=== PATIENT | male | born 1945 | race Caucasian/White ===

== ENCOUNTER → 2020-06-16 08:05 | Outpatient (CLI) | payer MEDICARE, MEDICAID, SELFPAY ==
--- NOTE | 2020-06-16 08:12 | CDU_ITS ---
Reason For Study: bruit Rt. Velocities/BP Lt. Velocities/BP Prox CCA 76.0/12.1 cm/sec. Prox CCA 69.1/17.6 cm/sec. Mid CCA 74.7/12.1 cm/sec. Mid CCA 67.9/15.1 cm/sec. Dist CCA 95.6/20.0 cm/sec. Dist CCA 72.8/18.8 cm/sec. Prox ICA 86.4/17.0 cm/sec. Prox ICA 96.3/19.5 cm/sec. Mid ICA 144.8/26.1 cm/sec. Mid ICA 94.1/21.7 cm/sec. Dist ICA 126.6/17.0 cm/sec. Dist ICA 91.9/23.9 cm/sec. Rt. ICA/CCA = 1.9. Lt. ICA/CCA = 1.4. Prox ECA 414.5/22.2 cm/sec. Prox ECA 492.6/58.6 cm/sec. Rt. Vert. 86.4/7.9 cm/sec. Lt. Vert. 23.5/6.5 cm/sec. Right Extracranial There is homogeneous, smooth atherosclerotic plaque noted in the right common carotid artery. There is heterogeneous, irregular atherosclerotic plaque noted in the right internal carotid artery. The atherosclerotic plaque causes acoustic shadowing. There is heterogeneous, irregular atherosclerotic plaque noted in the right external carotid artery. Antegrade flow is noted in the right vertebral artery. Left Extracranial There is heterogeneous, smooth atherosclerotic plaque noted in the left common carotid artery. There is homogeneous, smooth atherosclerotic plaque noted in the left internal carotid artery. There is heterogeneous, irregular atherosclerotic plaque noted in the left external carotid artery. Abnormal waveform morphology noted in the left vertebral artery. Procedure Carotid Duplex 46925. Interpretation Summary Moderate (50-69%) stenosis right extracranial internal carotid. Mild (<50%) stenosis left extracranial internal carotid. Flow within the right verterbral artery is antegrade. Flow within the left verterbral artery is bidirectional, consistent with subclavian steal phenomenon. Ordering Physician: Vince Dunbar Performed By: Evens Mendoza RVT
--- NOTE | 2020-06-16 08:12 | ADU_ITS ---
Reason For Study: atherosclerosis with claudication Right Velocities Left Velocities Ext. Iliac Artery, dist = 165.9 cm./sec. Ext Iliac Artery, dist = 159.3 cm./sec. Common Femoral Artery, mid = 192.1 cm./sec. Common Femoral Artery, mid = 152.6 cm./sec. Supf Femoral Artery, prox = 187.4 cm./sec. Supf. Femoral Artery, prox = 121.6 cm./sec. Supf Femoral Artery, mid = 94.1 cm./sec. Supf. Femoral Artery, mid = 119.8 cm./sec. Supf Femoral Artery, dist. = 99.4 cm./sec. Supf. Femoral Artery, dist = 101.5 cm./sec. Profunda Femoral Artery = 475.1 cm./sec. Profunda Femoral Artery = 44.0 cm./sec. Popliteal Artery, prox. = 92.8 cm./sec. Popliteal Artery, proximal, = 125.3 cm./sec. Popliteal Artery, mid = 52.0 cm./sec. Popliteal Artery, mid = 77.8 cm./sec. Popliteal Artery, dist = 69.2 cm./sec. Popliteal Artery, distal = 96.0 cm./sec. Ant. Tibial Artery, prox = 81.7 cm./sec. Ant.Tibial Artery, prox = 92.8 cm./sec. Ant. Tibial Artery, mid = 89.1 cm./sec. Ant Tibial Artery, mid = 59.7 cm./sec. Ant. Tibial Artery, dist = 92.8 cm./sec. Ant. Tibial Artery, distal = 90.4 cm./sec. Post. Tibial Artery, prox = 91.6 cm./sec. Post. Tibial Artery, prox = 114.2 cm./sec. Post. Tibial Artery, mid = 94.0 cm./sec. Post Tibial Artery, mid = 94.0 cm./sec. Post. Tibial Artery, dist = 92.8 cm./sec. Post Tibial Artery, dist. = 83.0 cm./sec. Peroneal Artery, prox = 69.5 cm./sec. Peroneal Artery, prox = 54.8 cm./sec. Peroneal Artery, mid = 59.6 cm./sec. Peroneal Artery, mid = 45.0 cm./sec. Peroneal Artery,dist = 43.7 cm./sec. Peroneal Artery,dist. = 42.5 cm./sec. Procedure The exam was diagnostic. Exam performed in department. Interpretation Summary Right profunda with severe stenosis otherwise widely patent throughout bilateral lower extremities. Ordering Physician: Vince Dunbar Performed By: Evens Mendoza RVT
--- NOTE | 2020-06-16 08:12 | AAVD_ITS ---
Reason For Study: aortic atherosclerosis Aorta Measurements Aorta Doppler Measurements Proximal aorta measures1.02 x 1.06cm. in cross- Peak systolic flow velocities within the proximal sectional axis. aorta measure 58.5 cm/sec. Proximal aorta measures1.02cm. in longitudinal Peak systolic flow velocities within the mid aorta axis. measure 62.1 cm/sec. Mid aorta measures.95 x 1.02cm. in cross-sectionalPeak systolic flow velocities within the distal axis. aorta measure 52.3 cm/sec. Mid aorta measures1.01cm. in longitudinal axis. Distal aorta measures.95 x .83cm. in cross- sectional axis. Distal aorta measures.92cm. in longitudinal axis. Left Iliac Artery Left iliac artery measures .38 x .46 cm. in the cross-sectional axis. Left iliac artery measures .43 cm. in the longitudinal axis. Peak systolic velocity in the left iliac artery measures 140.7 cm/sec. Right Iliac Artery Right iliac artery measures .5 x .58 cm. in the cross-sectional axis. Right iliac artery measures .5 cm. in the longitudinal axis. Peak systolic velocity in the right iliac artery measures 202.4 cm/sec. Procedure The exam was diagnostic. Exam performed in department. Interpretation Summary No aortoiliac aneurysm.. Right iliac with psv 202 for mild to moderate stenosis, otherwise o significant stenosis. Ordering Physician: Vince Dunbar Performed By: Evens Mendoza RVT
--- NOTE | 2020-06-16 08:12 | ART_ITS ---
Reason For Study: atherosclerosis with claudication Procedure A bilateral lower extremity continuous wave Doppler with analog waveform analysis and ankle brachial indexes. R arm manual BP was 192/80 prior to releasing pt. Pt is to go home and make sure he took his BP meds this AM. Left Segmental Pressures Left brachial= 189mmHg. Left posterior tibial artery = 182mmHg. Left dorsalis pedis artery = 182mmHg. The left dorsalis pedis waveforms are biphasic. The left posterior tibial artery waveforms are biphasic. Right Segmental Pressures Right brachial= 208mmHg. Right posterior tibial artery = 192mmHg. Right dorsalis pedis artery = 199mmHg. The right dorsalis pedis waveforms are biphasic. The right posterior tibial artery waveforms are biphasic. Indices The right ankle brachial index by the posterior tibial artery is .92. The right ankle brachial index by the dorsalis pedis is .96. The left ankle brachial index by the dorsalis pedis is .88. The left ankle brachial index by the posterior tibial artery is .88. Interpretation Summary Bilateral triphasic flow and RONNIE 0.96 and 0.88. Ordering Physician: Vince Dunbar Performed By: Vikas Mendoza RVT and Student
== END ==
PROVIDERS: Referring Provider Surgery Vascular Surgery; Visit Provider Surgery Vascular Surgery
DX: I70.0 Atherosclerosis of aorta (principal); I77.1 Stricture of artery; I70.213 Atherosclerosis of native arteries of extremities with intermittent claudication, bilateral legs; R09.89 Other specified symptoms and signs involving the circulatory and respiratory systems; I11.9 Hypertensive heart disease without heart failure; E78.00 Pure hypercholesterolemia, unspecified; Z72.0 Tobacco use
CPT/HCPCS: 93880; 93922; 93925; 93978

== ENCOUNTER → 2020-12-26 08:16 | Outpatient (CLI) | payer MEDICARE, MEDICAID, SELFPAY ==
[2020-11-08 14:50] VITALS: BMI 25.8
[2020-12-26 12:08] LABS: Absolute Lymphocyte Count 2.74 X10^3/uL (0.83-4.51); Absolute Neutrophil Count 3.8 X10^3/uL (2.0-7.7); Basophil# 0.04 X10^3/uL; Basophil% 0.5 % (0-1); Eosinophil# 0.09 X10^3/uL; Eosinophils% 1.2 % (0-5); Hematocrit 51.4 % (40-54); Hemoglobin 16.1 g/dL (13.0-16.5); Lymphocyte # 2.74 X10^3/ul (4.0); Lymphocyte % 37.1 % (19-41); Mean Corp Hgb Conc 31.3 g/dL (32-36); Mean Corpuscular Hgb 30.8 pg (27.0-32.0); Mean Corpuscular Volume 98.3 fL (80-94); Mean Platelet Vol. 11.2 fl (6.2-12.0); Monocyte# 0.65 X10^3/uL; Monocyte% 8.8 % (0-10); NRBC Flagged by Analyzer 0 % (0-5); Neutrophil # 3.84 X10^3/uL (2.7-7.7); Platelet Count 184 K/mm3 (150-450); RBC Distribution Width CV 13.5 % (11.6-14.6); Red Blood Count 5.23 M/mm3 (4.6-6.2); White Blood Count 7.4 K/mm3 (4.4-11.0)
[2020-12-26 12:32] LABS: Vitamin D,25 Hydroxy 14.2 ng/mL
[2020-12-26 12:44] LABS: Hemoglobin A1c 5.9 % (3.8-5.6)
[2020-12-26 12:56] LABS: AST(SGOT) 30 U/L (15-37); Alanine Aminotransfer ALT/SGPT 42 U/L (16-61); Albumin, Serum 3.7 g/dL (3.2-5.0); Alkaline Phosphatase 99 U/L (45-117); Anion Gap 6 (5-15); BUN 13 mg/dL (7-18); BUN/Creat Ratio 13.7 RATIO (10-20); Calcium,Total 9.4 mg/dL (8.5-10.1); Chloride 104 mmol/L (98-107); Cholesterol 141 mg/dL (200); Creatinine, Serum 0.95 mg/dL (0.70-1.30); EST Glomerular Filtration Rate 83 mL/min (>60); Est Glom Filt Rate - Afr Amer 100 mL/min (>60); Globulin 3.8 g/dL (2.2-4.2); Glucose 104 mg/dL (74-106); High Density Lipoprotein 37 mg/dL; PSA,Total - Annual Screen 1.52 ng/mL (0.00-4.00); Potassium 4.2 mmol/L (3.5-5.1); Protein, Total 7.5 g/dL (6.4-8.2); Sodium Level 139 mmol/L (136-145); Thyroid Stim Hormone (TSH) 3.15 uIU/mL (0.358-3.74); Triglycerides 151 mg/dL; Very Low Density Lipoprotein 30 mg/dL (5-40)
== END ==
LOC: BIMLAB 08:22
PROVIDERS: PCP Internal Medicine; Referring Provider Internal Medicine; Visit Provider Internal Medicine
DX: E55.9 Vitamin D deficiency, unspecified (principal); E78.5 Hyperlipidemia, unspecified; I10 Essential (primary) hypertension; I25.10 Atherosclerotic heart disease of native coronary artery without angina pectoris; F17.210 Nicotine dependence, cigarettes, uncomplicated; I73.9 Peripheral vascular disease, unspecified; Z95.5 Presence of coronary angioplasty implant and graft; Z12.5 Encounter for screening for malignant neoplasm of prostate; Z79.899 Other long term (current) drug therapy
CPT/HCPCS: 36415; 80053; 80061; 82306; 83036; 84153; 84443; 85025; G0103

== ENCOUNTER → 2021-08-14 08:05 | Outpatient (CLI) | payer MEDICARE, MEDICAID, SELFPAY ==
--- NOTE | 2021-08-14 08:08 | ART_ITS ---
Reason For Study: Atherosclerosis Procedure A bilateral lower extremity continuous wave Doppler with analog waveform analysis and ankle brachial indexes. Left Segmental Pressures Left brachial= 179mmHg. Left posterior tibial artery = 183mmHg. Left dorsalis pedis artery = 165mmHg. Left digit = 113 mmHg. The left dorsalis pedis waveforms are biphasic. The left posterior tibial artery waveforms are biphasic. Right Segmental Pressures Right brachial= 205mmHg. Right posterior tibial artery = 168mmHg. Right dorsalis pedis artery = 148mmHg. Right digit = 109 mmHg. The right dorsalis pedis waveforms are biphasic. The right posterior tibial artery waveforms are biphasic. Indices The right ankle brachial index by the dorsalis pedis is 0.72. The right ankle brachial index by the posterior tibial artery is 0.82. The right digital-brachial index is 0.53. The left ankle brachial index by the dorsalis pedis is 0.80. The left ankle brachial index by the posterior tibial artery is 0.89. The left digital-brachial index is 0.55. VL/Ankle Brachial Index Interpretation Summary Bilateral mild occlussive disease with triphasic flow and RONNIE 0.82 and 0.89. Ordering Physician: Vince Dunbar Referring Physician: Sherrie Song Performed By: Tiffani Hodge RVT
--- NOTE | 2021-08-14 08:08 | CDU_ITS ---
Reason For Study: Carotid stenosis Rt. Velocities/BP Lt. Velocities/BP Prox CCA 49.9/9.5 cm/sec. Prox CCA 75.4/17 cm/sec. Mid CCA 60.4/13.4 cm/sec. Mid CCA 73.6/17 cm/sec. Dist CCA 60.4/13.4 cm/sec. Dist CCA 71.8/13.3 cm/sec. Prox ICA 91.9/15.2 cm/sec. Prox ICA 109.6/16.3 cm/sec. Mid ICA 156.5/27 cm/sec. Mid ICA 86.3/13.7 cm/sec. Dist ICA 113.8/13.3 cm/sec. Dist ICA 79.1/15.2 cm/sec. Rt. ICA/CCA = 2.59. Lt. ICA/CCA = 1.49. Prox ECA 434.7/20.5 cm/sec. Prox ECA 427.3/9.2 cm/sec. Rt. Vert. 104.7/13.3 cm/sec. Lt. Vert. 30.5/8.8 cm/sec. Right Extracranial There is homogeneous, smooth atherosclerotic plaque noted in the right common carotid artery. There is heterogeneous, irregular atherosclerotic plaque noted in the right internal carotid artery. The atherosclerotic plaque causes acoustic shadowing. Stent noted in the CCA distal-ICA distal. There is heterogeneous, irregular atherosclerotic plaque noted in the right external carotid artery. Antegrade flow is noted in the right vertebral artery. Left Extracranial There is heterogeneous, irregular atherosclerotic plaque noted in the left common carotid artery. There is homogeneous, smooth atherosclerotic plaque noted in the left internal carotid artery. Stent noted in the CCA distal-ICA mid. There is heterogeneous, irregular atherosclerotic plaque noted in the left external carotid artery. Abnormal waveform morphology noted in the left vertebral artery. VL/Carotid Duplex Ultrasound Interpretation Summary Moderate (50-69%) stenosis right extracranial internal carotid. Mild (<50%) yara nosis left extracranial internal carotid. Flow within the left verterbral artery is bidire ctional, consistent with subclavian steal phenomenon. Ordering Physician: Vince Dunbar Referring Physician: Sherrie Song Performed By: Tiffani Hodge RVT
== END ==
PROVIDERS: PCP Internal Medicine; Referring Provider Surgery Vascular Surgery; Visit Provider Surgery Vascular Surgery
DX: I65.21 Occlusion and stenosis of right carotid artery (principal); I70.213 Atherosclerosis of native arteries of extremities with intermittent claudication, bilateral legs; Z48.812 Encounter for surgical aftercare following surgery on the circulatory system; Z72.0 Tobacco use
CPT/HCPCS: 93880; 93922; 93978

== ENCOUNTER 2021-09-30 08:46 | Inpatient (IN) | payer MEDICARE, MEDICAID, SELFPAY ==
[2021-09-30] VITALS (10 sets, daily range): BP systolic 112–152; BP diastolic 54–74; PULSE 70–90; RESP 16–20; TEMP 36.3–37.6; O2SAT 94–98; BMI 24.0; BMI 22.2
[2021-09-30 09:22] LABS: Absolute Lymphocyte Count 1.54 X10^3/uL (0.83-4.51); Absolute Neutrophil Count 17.8 X10^3/uL (2.0-7.7); Basophil# 0.06 X10^3/uL; Basophil% 0.3 % (0-1); Eosinophil# 1.11 X10^3/uL; Eosinophils% 4.8 % (0-5); Hematocrit 45.4 % (40-54); Hemoglobin 14.9 g/dL (13.0-16.5); Lymphocyte # 1.54 X10^3/ul (0.83-4.51); Lymphocyte % 6.7 % (19-41); Mean Corp Hgb Conc 32.8 g/dL (32-36); Mean Corpuscular Hgb 30.7 pg (27.0-32.0); Mean Corpuscular Volume 93.4 fL (80-94); Mean Platelet Vol. 10.8 fl (6.2-12.0); Monocyte# 2.45 X10^3/uL; Monocyte% 10.6 % (0-10); NRBC Flagged by Analyzer 0 % (0-5); Neutrophil # 17.75 X10^3/uL (2.7-7.7); Neutrophil % 76.6 % (47-70); POSITIVE DIFFERENTIAL YES; POSITIVE MORPHOLOGY YES; Platelet Count 273 K/mm3 (150-450); RBC Distribution Width CV 13.5 % (11.6-14.6); Red Blood Count 4.86 M/mm3 (4.6-6.2); White Blood Count 23.1 K/mm3 (4.4-11.0)
[2021-09-30 09:25] LABS: Differential Indicated SCAN CRITERIA MET
[2021-09-30 09:32] LABS: Anion Gap 13 (5-15); BUN 46 mg/dL (7-18); BUN/Creat Ratio 33.8 RATIO (10-20); Calcium,Total 9.3 mg/dL (8.5-10.1); Chloride 97 mmol/L (98-107); Creatinine, Serum 1.36 mg/dL (0.70-1.30); EST Glomerular Filtration Rate 54 mL/min (>60); Est Glom Filt Rate - Afr Amer 66 mL/min (>60); Glucose 147 mg/dL (74-106); Potassium 3.7 mmol/L (3.5-5.1); Sodium Level 133 mmol/L (136-145)
--- NOTE | 2021-09-30 09:46 | CT_ITS ---
STUDY: CT ABDOMEN AND PELVIS WITH CONTRAST REASON FOR EXAM: Male, 75 years old. Left lower quadrant pain RADIATION DOSAGE (If Supplied By Facility): CTDIvol = ( 10.36 ) mGy, DLP = ( 555.41 ) mGycm TECHNIQUE: CT images were obtained from the dome of the diaphragm to the symphysis pubis without oral contrast. IV 100mL Isovue-370 was administered. Sagittal and coronal images were reconstructed. Individualized dose optimization techniques were used for this CT. COMPARISON: None. FINDINGS: The visualized lung bases are unremarkable. There is coronary artery disease. There is basal atelectasis. Gallbladder is enlarged with surrounding inflammation. There is no biliary dilation. Liver, spleen and pancreas are normal. Normal bilateral adrenal glands. Normal right kidney. Normal left kidney. There is no intestinal obstruction. There is colonic diverticulosis without radiculitis. There is advanced aortic atherosclerosis with calcified and lipid rich plaque. There are bilateral stents in the iliacs with low diameter, possible stenosis. Normal urinary bladder. There is a right inguinal fat hernia. Normal osseous structures. CT/Abdomen/Pelvis W IV Cont ONLY IMPRESSION: Questionable cholecystitis. Refer to ultrasonography. Unremarkable left lower quadrant. Advanced atherosclerosis. Electronically Signed: Joe Rose MD at 12:23 EST Tel , Service support ,
--- NOTE | 2021-09-30 09:46 | ED.VIS.GI ---
HPI HPI - GI History of Present Illness Chief Complaint: Abd Pain Narrative Narrative: 75-year-old male presenting with diarrhea for the last 10 days. Patient states that he has not had a fever or chills. He is not having nausea or vomiting. He does note decreased p.o. intake because he is generally not hungry. He complains of abdominal pain across the bilateral lower quadrants of his abdomen. He denies drinking from any [place] or streams. He denies exotic travel. He denies eating undercooked meats. No history of C. difficile colitis. Had he has not been on recent antibiotics. He has no history of diverticulitis. He denies black or bloody stools. Patient states that he called his primary care physician who called in loperamide. He has not picked this up yet. [facility] Medical History History of myocardial infarction Hyperlipemia Hypertension Home Medications aspirin 81 mg tablet,delayed release 81 mg PO DAILY 11/08/20 [History Last Taken Unknown] ezetimibe 10 mg tablet 10 mg PO DAILY 11/08/20 [History Last Taken Unknown] prasugrel 10 mg tablet 10 mg PO DAILY 11/08/20 [History Last Taken Unknown] atorvastatin 80 mg tablet 80 mg PO QHS #90 tab 07/10/21 [Rx Last Taken Unknown] lisinopril 10 mg tablet 10 mg PO BID #180 tab 07/25/21 [Rx Last Taken Unknown] metoprolol tartrate 50 mg tablet 25 mg PO BID #90 tab 08/07/21 [Rx Last Taken Unknown] loperamide 2 mg tablet See Rx Instructions PO .COMPLEX PRN #30 tab MDD 16mg 09/26/21 [Rx Last Taken Unknown] ondansetron 4 mg disintegrating tablet 4 mg PO Q8H PRN #30 tab 09/29/21 [Rx Last Taken Unknown] Allergy/AdvReac Type Severity Reaction Status Date / Time clopidogrel [From Plavix] Allergy Intermediate Hives Verified 09/30/21 08:49 Family History Father Colon cancer Mother Hypertension Diabetes Surgical History History of heart artery stent Social History Smoking Status: Current every day smoker tobacco type: cigarettes Tobacco: How many years used: 45 alcohol intake: current alcohol intake frequency: a few times a week Alcohol type: beer substance use type: does not use what type of physical activity do you participate in: walking frequency: 3-4 times per week ROS ROS ED Constitutional Constitutional ED: Denies chills or fever(s) ENT ENT ED: Denies rhinorrhea or sore throat Cardiovascular Cardiovascular: Denies chest pain or palpitations Respiratory/Chest Respiratory/Chest: Denies cough or dyspnea Gastrointestinal Gastrointestinal: Reports abdominal pain and diarrhea; Denies constipation Genitourinary Genitourinary ED: Denies dysuria or hematuria Musculoskeletal Musculoskeletal: Denies arthralgias or myalgias Integumentary Denies Abrasions or rash Neurologic Neurologic: Denies headache(s) or paresthesias EXAM Physical Exam Const Vital Signs: 09/30/21 08:46 09/30/21 09:16 09/30/21 11:06 Temperature 98 F 98.0 F Temperature Source Temporal Temporal Pulse Rate 90 83 89 Respiratory Rate 20 H 16 16 Blood Pressure 151/54 H 122/61 H Blood Pressure Mean 86 81 Pulse Ox 97 95 96 Oxygen Delivery Method Room Air Room Air Room Air 09/30/21 13:28 09/30/21 15:05 Temperature 97.6 F L Temperature Source Temporal Pulse Rate 86 Respiratory Rate 16 16 Blood Pressure Blood Pressure Mean Pulse Ox 98 96 Oxygen Delivery Method Room Air Room Air Positive well nourished General Appearance ED: NAD; Negative for pallor HEENT Reports dry mucous membranes normocephalic and atraumatic Mouth ED: Yes dry mucous membranes Mouth: dry mucous membranes Eyes PERRL and EOMs intact bilaterally General Eye ED: Negative for pale conjunctiva or scleral icterus Resp normal respiratory effort and clear to auscultation bilaterally Cardio regular rate and regular rhythm GI Palpation: soft and tender LLQ and RLQ Back/Spine no CVA tenderness Neuro CN's II-XII intact bilaterally Sensorium / Orientation: alert, oriented to person, oriented to place and oriented to time Psych mental status grossly normal and thought process normal Skin General Skin Exam: Negative for jaundice or pallor MDM MDM MDM Narrative Medical decision making narrative: 75-year-old male presenting with left lower quadrant and right lower quadrant abdominal pain this is worse on the left lower quadrant. He denies fever, chills, nausea, vomiting. Patient states he has not had any black or bloody stool. He denies any recent antibiotics use. He denies eating undercooked foods. He has had no exotic foods. I did obtain blood work and the patient received morphine and Zofran with good relief of his pain. His CBC showed he has a leukocytosis of 23,000 with a slight left shift. Hemoglobin hematocrit are stable however his hemoglobin is slightly lower at 14.9 and it was previously in December at 16.1. Creatinine is slightly elevated at 1.36. UA negative for infection. CT of the abdomen pelvis is performed and does not show any bowel inflammation in the left lower or right lower quadrants. It does identify a very large gallbladder with some surrounding inflammation. Patient has minimal pain in this area. I did obtain an ultrasound of the right upper quadrant which shows gallbladder hydrops. I initially discussed this with Dr. Enrique who recommended that I obtain a CT of the abdomen pelvis with oral contrast and then I consult Dr. Iraheta. After speaking with Dr. Iraheta he did state that this could possibly be an ischemic colitis and recommended that I get inflammatory markers such as CRP, ESR, ferritin. . Given his high white blood cell count he recommended admitting the patient for observation and given the patient IV Zosyn to cover for ischemic colitis. ESR is 61.CRP is 366. Ferritin is pending. I was able to obtain a small stool sample and I hope this was a enough for testing. I did stand for ova and parasites, stool culture, enteric pathogens, C. difficile. After my conversation with DrSully Enrique, evaluate the patient did state that this could possibly be a source of the infection given the large size of this gallbladder hydrops. He recommended admission for cardiac clearance before he could consider doing a cholecystectomy. Since the patient is to be admitted either way and he needs Zosyn whether he has a gallbladder source or bowel source this was given and the patient will be admitted to the hospitalist for medical clearance for cholecystectomy Dr. Enrique. CT scan of the abdomen pelvis with oral contrast is pending however this do not change his disposition. Patient is admitted in stable condition. Impression: 1. Diarrhea 2. Leukocytosis 3. Gallbladder hydrops 4. Abdominal pain Lab Data Attestation: I reviewed the patient's lab results. Labs: Laboratory Results - last 24 hr 09/30/21 09/30/21 09/30/21 09:05 09:05 09:05 WBC 23.1 H RBC 4.86 Hgb 14.9 Hct 45.4 MCV 93.4 MCH 30.7 MCHC 32.8 RDW Std Deviation 46.0 H RDW Coeff of Arnoldo 13.5 Plt Count 273 MPV 10.8 Immature Gran % (Auto) 1.000 H Neut % (Auto) 76.6 H Lymph % (Auto) 6.7 L [place] % (Auto) 10.6 H Eos % (Auto) 4.8 Baso % (Auto) 0.3 Absolute Neuts (auto) 17.8 H Absolute Lymphs (auto) 1.54 Nucleated RBC % 0 Differential Comment SCANNED Diff Path Review May foll ESR Sodium 133 L Potassium 3.7 Chloride 97 L Carbon Dioxide 23.0 Anion Gap 13 BUN 46 H Creatinine 1.36 H Estim Creat Clear Calc 46.10 Est GFR (MDRD) Af Amer 66 Est GFR (MDRD) Non-Af 54 L BUN/Creatinine Ratio 33.8 H Glucose 147 H Lactic Acid Calcium 9.3 Total Bilirubin 1.10 H Direct Bilirubin 0.47 H AST 38 H ALT 42 Alkaline Phosphatase 114 C-React Prot Ext Range Total Protein 7.7 Albumin 2.6 L Globulin 5.1 H Lipase Urine Color Urine Clarity Urine pH Ur Specific [place] Urine Protein Urine Glucose (UA) Urine Ketones Urine Occult Blood Urine Nitrite Urine Bilirubin Urine Urobilinogen Ur Leukocyte Esterase 09/30/21 09/30/21 09/30/21 09:05 09:19 11:46 WBC RBC Hgb Hct MCV MCH MCHC RDW Std Deviation RDW Coeff of Arnoldo Plt Count MPV Immature Gran % (Auto) Neut % (Auto) Lymph % (Auto) [place] % (Auto) Eos % (Auto) Baso % (Auto) Absolute Neuts (auto) Absolute Lymphs (auto) Nucleated RBC % Differential Comment Diff Path Review ESR 61 H Sodium Potassium Chloride Carbon Dioxide Anion Gap BUN Creatinine Estim Creat Clear Calc Est GFR (MDRD) Af Amer Est GFR (MDRD) Non-Af BUN/Creatinine Ratio Glucose Lactic Acid Calcium Total Bilirubin Direct Bilirubin AST ALT Alkaline Phosphatase C-React Prot Ext Range Total Protein Albumin Globulin Lipase 51 L Urine Color Yellow Urine Clarity Clear Urine pH 5.0 Ur Specific [place] 1.015 Urine Protein 30 H Urine Glucose (UA) Normal Urine Ketones 5 H Urine Occult Blood 10 H Urine Nitrite Negative Urine Bilirubin Negative Urine Urobilinogen 1 H Ur Leukocyte Esterase Negative 09/30/21 09/30/21 15:01 15:01 WBC RBC Hgb Hct MCV MCH MCHC RDW Std Deviation RDW Coeff of Arnoldo Plt Count MPV Immature Gran % (Auto) Neut % (Auto) Lymph % (Auto) [place] % (Auto) Eos % (Auto) Baso % (Auto) Absolute Neuts (auto) Absolute Lymphs (auto) Nucleated RBC % Differential Comment Diff Path Review ESR Sodium Potassium Chloride Carbon Dioxide Anion Gap BUN Creatinine Estim Creat Clear Calc Est GFR (MDRD) Af Amer Est GFR (MDRD) Non-Af BUN/Creatinine Ratio Glucose Lactic Acid 1.4 Calcium Total Bilirubin Direct Bilirubin AST ALT Alkaline Phosphatase C-React Prot Ext Range 366.00 H Total Protein Albumin Globulin Lipase Urine Color Urine Clarity Urine pH Ur Specific [place] Urine Protein Urine Glucose (UA) Urine Ketones Urine Occult Blood Urine Nitrite Urine Bilirubin Urine Urobilinogen Ur Leukocyte Esterase Radiography Diagnostic Testing: Clinical Impression(s) from Imaging Studies Abdomen/Pelvis CT 09/30/21 09:46 IMPRESSION: Questionable cholecystitis. Refer to ultrasonography. Unremarkable left lower quadrant. Advanced atherosclerosis. Electronically Signed: Joe Rose MD at 12:23 EST Tel , Service support , Gallbladder Ultrasound 09/30/21 12:27 IMPRESSION: Gallbladder hydrops. Electronically Signed: Keshawn Velazquez MD at 13:25 EST Tel , Service support , Discharge Plan Triage Chief Complaint: Abd Pain ED Provider: Clemente Fischer Dx/Rx/DC Orders Prescriptions: No Action ezetimibe 10 mg tablet 10 mg PO DAILY RF: 0 aspirin 81 mg tablet,delayed release (DR/EC) 81 mg PO DAILY RF: 0 prasugrel 10 mg tablet 10 mg PO DAILY RF: 0 loperamide 2 mg tablet See Rx Instructions PO .COMPLEX MDD 16mg PRN (Reason: loose stool) Qty: 30 RF: 0 atorvastatin 80 mg tablet 80 mg PO QHS Qty: 90 RF: 3 lisinopril 10 mg tablet 10 mg PO BID Qty: 180 RF: 3 metoprolol tartrate 50 mg tablet 25 mg PO BID Qty: 90 RF: 3 ondansetron 4 mg tablet,disintegrating 4 mg PO Q8H PRN (Reason: nausea and vomiting) Qty: 30 RF: 0 Primary Care Provider: Sherrie Song
[2021-09-30 09:59] LABS: Lipase 51 U/L (73-393)
[2021-09-30 10:00] LABS: AST(SGOT) 38 U/L (15-37); Alanine Aminotransfer ALT/SGPT 42 U/L (16-61); Albumin, Serum 2.6 g/dL (3.2-5.0); Alkaline Phosphatase 114 U/L (45-117); Bilirubin, Direct 0.47 mg/dL (0.00-0.30); Globulin 5.1 g/dL (2.2-4.2); Protein, Total 7.7 g/dL (6.4-8.2)
[2021-09-30 10:01] LABS: Differential Comment SCANNED
[2021-09-30] MEDS: Morphine 4 MG/ML Syringe IV (10:07)
[2021-09-30] MEDS: 0.9% Normal Saline 1,000 ML 999 ML IV ×2 (10:07→16:53)
[2021-09-30] MEDS: Ondansetron 4 MG/2 ML Vial IV (10:08)
--- NOTE | 2021-09-30 12:27 | US_ITS ---
STUDY: ABDOMINAL ULTRASOUND - RIGHT UPPER QUADRANT REASON FOR VISIT: Male, 75 years old pain TECHNIQUE: Ultrasound evaluation of the right upper quadrant was performed with real-time and static huerta-scale imaging. TECHNICAL QUALITY: Adequate. COMPARISON: CT earlier today FINDINGS: Liver: The liver measures 16.5 cm. There is normal echogenicity of the liver. The bile ducts are within normal limits. There is hepatic color flow. The direction of portal flow is hepatopetal. There is no demonstrated mass lesion. Gallbladder: There is a markedly distended gallbladder. The gallbladder wall measures 2 mm. There is a negative sonographic Mcguire''s sign. There is no pericholecystic fluid. There are gallbladder polyps. Common Bile Duct (C.B.D.): The common bile duct measures 3 mm. Pancreas: Normal size of the head, body and tail of the pancreas. There is normal echogenicity of the pancreas. There is no demonstrated pancreatic mass or cyst. Right Kidney: Normal size of the right kidney. The right kidney measures 10.9 cm. Normal renal cortex. The right cortex measures 2.2 cm. There is no demonstrated renal mass or cyst. There is no right hydronephrosis. US/Gallbladder IMPRESSION: Gallbladder hydrops. Electronically Signed: Keshawn Velazquez MD at 13:25 EST Tel , Service support ,
--- NOTE | 2021-09-30 14:33 | CT_ITS ---
INDICATION: LLq pain EXAMINATION: CT ABDOMEN AND PELVIS WITHOUT CONTRAST - CT Abdomen And Pelvis W/O Contrast Injection TECHNIQUE: Helically acquired images were obtained of the abdomen and pelvis without oral or IV contrast. A radiation dose optimization technique was used for this scan. IV Contrast dosage and agent: None. Oral contrast: Oral Gastrografin was administered. Radiation Dose (provided by facility) CTDIvol (8.8 ) mGy, DLP ( 447.03) mGy-cm COMPARISON: Earlier contrast enhanced CT examination of the abdomen and pelvis at 11:00 AM, 09/30/2021 FINDINGS: LOWER CHEST: Minimal pleural-parenchymal scar at the lung bases. No focal infiltrate. Cardiac silhouette is unchanged, coronary vascular calcifications are present. LIVER: Liver is unchanged in size configuration and density. No focal mass. GALLBLADDER AND BILIARY TREE: Gallbladder is distended, surrounding soft tissue stranding is present. No radiodense calcifications present. PANCREAS: No focal cystic or solid mass. SPLEEN: Normal size without focal cystic or solid mass. ADRENAL GLANDS: No nodules. KIDNEYS AND URETERS: Normal renal size and position. No hydronephrosis. Excreted contrast noted within nondistended renal collecting system and ureter bilaterally. PERITONEUM: No ascites or free air. No other fluid collection. BOWEL: 1. Normal appearance of the stomach. 2. Small bowel segments are nonspecific. Minimal scattered segments of distended small bowel are present however no cali bowel obstruction. 3. Moderate amount retained stool in the colon, scattered diverticula present without evidence diverticulitis. No masses or bowel obstruction. 4. The appendix is not adequately visualized. LYMPH NODES: No enlarged mesenteric or retroperitoneal lymph nodes. VESSELS: Extensive vascular calcifications throughout the aorta and iliac vessels. Endovascular stents are suspected in the iliac vessels. URINARY BLADDER: Unremarkable. REPRODUCTIVE ORGANS: No pelvic masses. ABDOMINAL WALL: Fat-containing RIGHT inguinal hernia without bowel involvement. BONES: Stable in appearance. No acute bony changes noted. CT/Abdomen/Pel W ORAL Cont Only IMPRESSION: 1. Significant distention of the gallbladder, associated soft tissue stranding is present however no radiodense calcifications. Early cholecystitis however is a consideration. 2. No masses bowel obstruction abscess free fluid or free air. No evidence diverticulitis. Sigmoid diverticulosis is present. 3. No evidence of obstructive uropathy. 4. Nonspecific segments of mildly distended small bowel in the upper abdomen. Pattern is unchanged. No bowel obstruction. Mild enteritis is a consideration. Electronically Signed: Keshawn Alexander MD at 17:43 EST Tel , Service support ,
--- NOTE | 2021-09-30 15:05 | NURSING ---
DR TOLBERT IN ROOM
[2021-09-30 15:14] LABS: Erythrocyte Sedimentation Rate 61 mm/hr (0-20)
--- NOTE | 2021-09-30 15:17 | EX.PCM.CON.S ---
Assessment & Plan Assessment/Plan (1) Hydrops of gallbladder: (2) Diarrhea: QUALIFIERS: Diarrhea type: unspecified type Qualified Code(s): R19.7 - Diarrhea, unspecified PLAN: At the present time with his physical exam really not showing any signs of acute cholecystitis I am not sure that his gallbladder is truly the source of his leukocytosis. However his gallbladder is significantly enlarged. The gallbladder wall is 2 mm in nature he has a negative Mcguire sign and there is no pericholecystic fluid. HIDA scan with ejection fraction may be of some use to determine if this is truly acute cholecystitis but I doubt it based upon the imaging studies that we have so far. However imaging the only thing that really looks abnormal on him is his gallbladder so far. The patient is currently going to get a CAT scan of his abdomen with oral contrast and no IV contrast secondary to his kidney function being slightly impaired. I believe his kidney function will probably improve with just hydration. The rest of his abdominal exam does not concern me for ischemic bowel he does not have pain out of proportion. He is more likely can have to be admitted to the hospitalist service have his heart worked up to make sure that it is fine. HPI Consult Data Date of Consult: 09/30/21 HPI Narrative HPI Narrative: JOSEMANUEL GLORIA, is a 75 M who presents with diarrhea for the last 11 days. Patient states that he has not had a fever or chills. He is not having nausea or vomiting. He does note decreased p.o. intake because he is generally not hungry. He complains of abdominal pain across the bilateral lower quadrants of his abdomen. He states this pain has been crampy in nature. Early on when he was having diarrhea it would be between 5 and 6 times and very loose watery. He denies drinking from any [place] or streams. He denies exotic travel. He denies eating undercooked meats. No history of C. difficile colitis. Had he has not been on recent antibiotics. He has no history of diverticulitis. He denies black or bloody stools. Patient states that he called his primary care physician who called in loperamide. He has not picked this up yet. [facility] Medical History History of myocardial infarction Hyperlipemia Hypertension Home Medications aspirin 81 mg tablet,delayed release 81 mg PO DAILY 11/08/20 [History Last Taken Unknown] ezetimibe 10 mg tablet 10 mg PO DAILY 11/08/20 [History Last Taken Unknown] prasugrel 10 mg tablet 10 mg PO DAILY 11/08/20 [History Last Taken Unknown] atorvastatin 80 mg tablet 80 mg PO QHS #90 tab 07/10/21 [Rx Last Taken Unknown] lisinopril 10 mg tablet 10 mg PO BID #180 tab 07/25/21 [Rx Last Taken Unknown] metoprolol tartrate 50 mg tablet 25 mg PO BID #90 tab 08/07/21 [Rx Last Taken Unknown] loperamide 2 mg tablet See Rx Instructions PO .COMPLEX PRN #30 tab MDD 16mg 09/26/21 [Rx Last Taken Unknown] ondansetron 4 mg disintegrating tablet 4 mg PO Q8H PRN #30 tab 09/29/21 [Rx Last Taken Unknown] Allergy/AdvReac Type Severity Reaction Status Date / Time clopidogrel [From Plavix] Allergy Intermediate Hives Verified 09/30/21 08:49 Family History Father Colon cancer Mother Hypertension Diabetes Surgical History History of heart artery stent Social History Smoking Status: Current every day smoker tobacco type: cigarettes Tobacco: How many years used: 45 alcohol intake: current alcohol intake frequency: a few times a week Alcohol type: beer substance use type: does not use what type of physical activity do you participate in: walking frequency: 3-4 times per week ROS Constitutional Constitutional: Reports anorexia; Denies chills or fever(s) Cardiovascular Cardiovascular: Denies chest pain or chest pain at rest Respiratory/Chest Respiratory/Chest: Denies cough or dyspnea Gastrointestinal Gastrointestinal: Reports abdominal pain and diarrhea; Denies hematochezia, melena or rectal bleeding Genitourinary Genitourinary: Denies change in urinary stream Physical Exam Const alert, oriented x3 and no apparent distress General Appearance: cooperative HEENT normocephalic and head/scalp atraumatic Eyes PERRL and EOMs intact bilaterally Resp clear to auscultation bilaterally Cardio Rate: regular rate Rhythm: regular rhythm GI soft to palpation GI Narrative: There is no rebound guarding or peritoneal signs. He is minimally tender with palpation in the lower abdomen and minimally tender to deep palpation in the right upper quadrant Lab / Micro Data Result Diagrams: 09/30/21 09:05 09/30/21 09:05 Labs: Laboratory Results - last 24 hr 09/30/21 09:05: WBC 23.1 H, RBC 4.86, Hgb 14.9, Hct 45.4, MCV 93.4, MCH 30.7, MCHC 32.8, RDW Std Deviation 46.0 H, RDW Coeff of Arnoldo 13.5, Plt Count 273, MPV 10.8, Immature Gran % (Auto) 1.000 H, Neut % (Auto) 76.6 H, Lymph % (Auto) 6.7 L, [place] % (Auto) 10.6 H, Eos % (Auto) 4.8, Baso % (Auto) 0.3, Absolute Neuts (auto) 17.8 H, Absolute Lymphs (auto) 1.54, Nucleated RBC % 0, Differential Comment SCANNED, Diff Path Review February09/30/21 09:05: Sodium 133 L, Potassium 3.7, Chloride 97 L, Carbon Dioxide 23.0, Anion Gap 13, BUN 46 H, Creatinine 1.36 H, Estim Creat Clear Calc 46.10, Est GFR (MDRD) Af Amer 66, Est GFR (MDRD) Non-Af 54 L, BUN/Creatinine Ratio 33.8 H, Glucose 147 H, Calcium 9.3 09/30/21 09:05: Total Bilirubin 1.10 H, Direct Bilirubin 0.47 H, AST 38 H, ALT 42, Alkaline Phosphatase 114, Total Protein 7.7, Albumin 2.6 L, Globulin 5.1 H 09/30/21 09:05: Lipase 51 L 09/30/21 09:19: ESR 61 H 09/30/21 11:46: Urine Color Yellow, Urine Clarity Clear, Urine pH 5.0, Ur Specific [place] 1.015, Urine Protein 30 H, Urine Glucose (UA) Normal, Urine Ketones 5 H, Urine Occult Blood 10 H, Urine Nitrite Negative, Urine Bilirubin Negative, Urine Urobilinogen 1 H, Ur Leukocyte Esterase Negative Radiology Impression Abdomen/Pelvis CT 09/30/21 09:46 IMPRESSION: Questionable cholecystitis. Refer to ultrasonography. Unremarkable left lower quadrant. Advanced atherosclerosis. Electronically Signed: Joe Rose MD at 12:23 EST Tel , Service support , Gallbladder Ultrasound 09/30/21 12:27 IMPRESSION: Gallbladder hydrops. Electronically Signed: Keshawn Velazquez MD at 13:25 EST Tel , Service support ,
[2021-09-30 15:37] LABS: Lactic Acid 1.4 mmol/L (0.4-1.9)
[2021-09-30 17:06] LABS: Ferritin 448 ng/mL (26-388)
--- NOTE | 2021-09-30 19:47 | PCM.HP.STD ---
HPI - General General Date of Admission: 09/30/21 HPI Narrative JOSEMANUEL GLORIA, is a 75 M who presents with 10 days of runny diarrhea and worsening abdominal pain. The abdominal pain is in his mid abdomen and right lower quadrant and he has not taken anything at home that improves it. He did see his primary care doctor on Saturday and the doctor prescribed loperamide but did warn him if he does not improve over the week that he should go to the ED. Patient had decreased appetite with resulting decreased po intake, but he had no fevers. He has had no recent abdominal surgeries. He has no recent history of travel or eating undercooked meats or history of C. difficile colitis he does not have any history of diverticulitis. He does not exhibit any signs of GI bleeding. He is on aspirin and prasugrel for previous heart disease and is taking his medications. He is active tobacco user, about 1/2 ppd. Distant colonoscopy noted, from in [facility]. [facility] Medical History History of myocardial infarction Hyperlipemia Hypertension Home Medications aspirin 81 mg tablet,delayed release 81 mg PO DAILY 11/08/20 [History Last Taken 09/30/21] ezetimibe 10 mg tablet 10 mg PO DAILY 11/08/20 [History Last Taken Unknown] prasugrel 10 mg tablet 10 mg PO DAILY 11/08/20 [History Last Taken 09/30/21] atorvastatin 80 mg tablet 80 mg PO QHS #90 tab 07/10/21 [Rx Last Taken 09/29/21] lisinopril 10 mg tablet 10 mg PO BID #180 tab 07/25/21 [Rx Last Taken 09/30/21] metoprolol tartrate 50 mg tablet 25 mg PO BID #90 tab 08/07/21 [Rx Last Taken 09/30/21] loperamide 2 mg PO Q4H PRN PRN MDD 16mg 09/30/21 [History Last Taken 09/30/21] Allergy/AdvReac Type Severity Reaction Status Date / Time clopidogrel [From Plavix] Allergy Intermediate Hives Verified 09/30/21 08:49 Family History Father Colon cancer Mother Hypertension Diabetes Surgical History History of heart artery stent Social History Smoking Status: Current every day smoker tobacco type: cigarettes Tobacco: How many years used: 45 alcohol intake: current alcohol intake frequency: a few times a week Alcohol type: beer substance use type: does not use what type of physical activity do you participate in: walking frequency: 3-4 times per week ROS ROS Narrative No nausea or vomiting no chest pain or racing no cough or shortness of breath. No trouble seeing hearing swallowing/ no headaches or seizures/ no numbness or tingling. There are no fevers or chills. There is no weight loss. There is no dysuria. There is positive insomnia. Vital Signs Vital Signs Vital Signs: 09/30/21 08:46 09/30/21 09:16 09/30/21 11:06 Temperature 98 F 98.0 F Temperature Source Temporal Temporal Pulse Rate 90 83 89 Respiratory Rate 20 H 16 16 Blood Pressure 151/54 H 122/61 H Blood Pressure Mean 86 81 Pulse Ox 97 95 96 Oxygen Delivery Method Room Air Room Air Room Air 09/30/21 13:28 09/30/21 15:05 09/30/21 17:23 Temperature 97.6 F L Temperature Source Temporal Pulse Rate 86 74 Respiratory Rate 16 16 16 Blood Pressure Blood Pressure Mean Pulse Ox 98 96 96 Oxygen Delivery Method Room Air Room Air Room Air 09/30/21 19:03 09/30/21 19:04 Temperature 97.4 F L Temperature Source Temporal Pulse Rate 79 70 Respiratory Rate 16 18 Blood Pressure 112/74 Blood Pressure Mean 86 Pulse Ox 97 97 Oxygen Delivery Method Room Air Room Air Weight Weight: 158 lb Body Mass Index (BMI) 24.0 Results Lab / Micro Data Result Diagrams: 09/30/21 09:05 09/30/21 09:05 Labs: Laboratory Results - last 24 hr 09/30/21 09:05: WBC 23.1 H, RBC 4.86, Hgb 14.9, Hct 45.4, MCV 93.4, MCH 30.7, MCHC 32.8, RDW Std Deviation 46.0 H, RDW Coeff of Arnoldo 13.5, Plt Count 273, MPV 10.8, Immature Gran % (Auto) 1.000 H, Neut % (Auto) 76.6 H, Lymph % (Auto) 6.7 L, [place] % (Auto) 10.6 H, Eos % (Auto) 4.8, Baso % (Auto) 0.3, Absolute Neuts (auto) 17.8 H, Absolute Lymphs (auto) 1.54, Nucleated RBC % 0, Differential Comment SCANNED, Diff Path Review February foll 09/30/21 09:05: Sodium 133 L, Potassium 3.7, Chloride 97 L, Carbon Dioxide 23.0, Anion Gap 13, BUN 46 H, Creatinine 1.36 H, Estim Creat Clear Calc 46.10, Est GFR (MDRD) Af Amer 66, Est GFR (MDRD) Non-Af 54 L, BUN/Creatinine Ratio 33.8 H, Glucose 147 H, Calcium 9.3 09/30/21 09:05: Total Bilirubin 1.10 H, Direct Bilirubin 0.47 H, AST 38 H, ALT 42, Alkaline Phosphatase 114, Total Protein 7.7, Albumin 2.6 L, Globulin 5.1 H 09/30/21 09:05: Lipase 51 L 09/30/21 09:05: Ferritin 448 H 09/30/21 09:19: ESR 61 H 09/30/21 11:46: Urine Color Yellow, Urine Clarity Clear, Urine pH 5.0, Ur Specific [place] 1.015, Urine Protein 30 H, Urine Glucose (UA) Normal, Urine Ketones 5 H, Urine Occult Blood 10 H, Urine Nitrite Negative, Urine Bilirubin Negative, Urine Urobilinogen 1 H, Ur Leukocyte Esterase Negative 09/30/21 15:01: C-React Prot Ext Range 366.00 H 09/30/21 15:01: Lactic Acid 1.4 Radiology Impression Abdomen/Pelvis CT 09/30/21 09:46 IMPRESSION: Questionable cholecystitis. Refer to ultrasonography. Unremarkable left lower quadrant. Advanced atherosclerosis. Electronically Signed: Joe Rose MD at 12:23 EST Tel , Service support , Gallbladder Ultrasound 09/30/21 12:27 IMPRESSION: Gallbladder hydrops. Electronically Signed: Keshawn Velazquez MD at 13:25 EST Tel , Service support , Abdomen CT 09/30/21 14:33 IMPRESSION: 1. Significant distention of the gallbladder, associated soft tissue stranding is present however no radiodense calcifications. Early cholecystitis however is a consideration. 2. No masses bowel obstruction abscess free fluid or free air. No evidence diverticulitis. Sigmoid diverticulosis is present. 3. No evidence of obstructive uropathy. 4. Nonspecific segments of mildly distended small bowel in the upper abdomen. Pattern is unchanged. No bowel obstruction. Mild enteritis is a consideration. Electronically Signed: Keshawn Alexander MD at 17:43 EST Tel , Service support , Assessment & Plan Assessment/Plan (1) Diarrhea: QUALIFIERS: Diarrhea type: unspecified type Qualified Code(s): R19.7 - Diarrhea, unspecified (2) Hydrops of gallbladder: (3) CAD (coronary artery disease): PLAN: This is a patient that presents with a history of diarrhea with leukocytosis, and seen by surgery with concern for gallbladder as etiology for his symptoms. Abdominal pain/diarrhea Continue following stool work-up with C. difficile, stool culture, ova parasites UA without infection Continue liquid diet IV morphine for PAIN q4 hrs PRN Is an atypical presentation of cholecystitis if indeed the gallbladder is inflamed Continue Zosyn for antibiotic coverage which will cover cholecystitis and possible colitis Unlikely to be ischemic colitis so far. Surgery following case Zofran PRN Hold Prasugrel in event patient goes to surgery CT scan of his abdomen with oral contrast Hypertension continue lisinopril 10 mg twice daily Resume metoprolol tartrate 25 BID Preoperative risk index - Patient is low risk for low risk procedure assuming laparoscopic cholecystectomy - Obtain EKG - No recent decompensations of cardiac function. - NSQUIP was completed and placed in paper chart. Patient is full code. I did discuss this with him and patient was new to this concept, he was unsure but thought probably he should be on full code. I encouraged him to consider it further and we can have full CODE STATUS at this time Lovenox for DVT prophylaxis Charges/Coding Visit Charges Inpatient E&M: 40930 Init Hosp L3
--- NOTE | 2021-09-30 20:26 | EKG12_ITS ---
Test Reason : PRE-OP Blood Pressure : / mmHG Vent. Rate : 081 BPM Atrial Rate : 081 BPM P-R Int : 144 ms QRS Dur : 094 ms QT Int : 386 ms P-R-T Axes : 002 033 012 degrees QTc Int : 448 ms Normal sinus rhythm Nonspecific ST and T wave abnormality Abnormal ECG No previous ECGs available Confirmed by NICK ARCEO, JIMENEZ ([id number]), online editor MOHSEN PROCTOR ([id number]) on 10/03/2021 8:18:45 AM Referred By: QUANG Confirmed By:JIMENEZ ROMERO MD
[2021-09-30] MEDS: Atorvastatin Calcium 80 MG Tablet PO (22:09)
[2021-09-30] MEDS: Lisinopril 10 MG Tablet PO (22:09)
[2021-09-30] MEDS: 0.9% Normal Saline 1,000 ML 100 ML IV (22:09)
[2021-09-30] MEDS: Metoprolol Tartrate 25 MG Tablet PO (22:09)
[2021-10-01] VITALS (7 sets, daily range): BP systolic 100–144; BP diastolic 56–63; PULSE 72–84; RESP 16–18; TEMP 36.6–36.8; O2SAT 92–95
[2021-10-01 06:42] LABS: Absolute Neutrophil Count 15.7 X10^3/uL (2.0-7.7); Basophil# 0.04 X10^3/uL; Basophil% 0.2 % (0-1); Hematocrit 39.7 % (40-54); Hemoglobin 13.1 g/dL (13.0-16.5); Lymphocyte % 8.2 % (19-41); Mean Corpuscular Hgb 30.9 pg (27.0-32.0); Mean Corpuscular Volume 93.6 fL (80-94); Mean Platelet Vol. 11.1 fl (6.2-12.0); Monocyte# 2.11 X10^3/uL; Monocyte% 10.8 % (0-10); NRBC Flagged by Analyzer 0 % (0-5); Neutrophil # 15.66 X10^3/uL (2.7-7.7); Neutrophil % 80.1 % (47-70); POSITIVE DIFFERENTIAL YES; Platelet Count 267 K/mm3 (150-450); RBC Distribution Width CV 13.6 % (11.6-14.6); RBC Distribution Width SD 46.1 fl (35.1-43.9); Red Blood Count 4.24 M/mm3 (4.6-6.2); White Blood Count 19.5 K/mm3 (4.4-11.0)
[2021-10-01 06:48] LABS: Differential Indicated SCAN CRITERIA MET
[2021-10-01 07:02] LABS: Anion Gap 10 (5-15); BUN 31 mg/dL (7-18); Calcium,Total 8.7 mg/dL (8.5-10.1); Chloride 102 mmol/L (98-107); Creatinine, Serum 0.94 mg/dL (0.70-1.30); EST Glomerular Filtration Rate 83 mL/min (>60); Est Glom Filt Rate - Afr Amer 101 mL/min (>60); Estimated Creatinine Clearance 64.65 ml/min; Glucose 104 mg/dL (74-106); Potassium 3.5 mmol/L (3.5-5.1); Sodium Level 137 mmol/L (136-145)
[2021-10-01] MEDS: 0.9% Normal Saline 1,000 ML 100 ML IV (08:19)
--- NOTE | 2021-10-01 09:07 | PCM.PN.SRG ---
Subjective Subjective No abdominal pain this morning no nausea or vomiting. Has had some looser stools. Objective Data Objective Data Abdomen is soft nontender no rebound guarding or peritoneal signs are identified Vital Signs: Vital Signs Temp Pulse Resp BP Pulse Ox 98.3 F 77 18 118/58 L 94 10/01/21 08:15 10/01/21 08:15 10/01/21 08:15 10/01/21 08:15 10/01/21 08:15 Oxygen Delivery Method Room Air Weight: 146 lb 2.664 oz Body Mass Index (BMI) 22.2 Intake & Output: Intake and Output for Last 24 Hours 09/29/21 09/30/21 10/01/21 23:59 23:59 23:59 Intake Total 2049 1550 / 1550 Output Total 300 / 300 Balance 2049 1250 / 1250 Lab / Micro Data Result Diagrams: 10/01/21 04:57 10/01/21 04:57 Labs: Laboratory Results - last 24 hr 09/30/21 09:05: WBC 23.1 H, RBC 4.86, Hgb 14.9, Hct 45.4, MCV 93.4, MCH 30.7, MCHC 32.8, RDW Std Deviation 46.0 H, RDW Coeff of Arnoldo 13.5, Plt Count 273, MPV 10.8, Immature Gran % (Auto) 1.000 H, Neut % (Auto) 76.6 H, Lymph % (Auto) 6.7 L, [place] % (Auto) 10.6 H, Eos % (Auto) 4.8, Baso % (Auto) 0.3, Absolute Neuts (auto) 17.8 H, Absolute Lymphs (auto) 1.54, Nucleated RBC % 0, Differential Comment SCANNED, Diff Path Review February09/30/21 09:05: Sodium 133 L, Potassium 3.7, Chloride 97 L, Carbon Dioxide 23.0, Anion Gap 13, BUN 46 H, Creatinine 1.36 H, Estim Creat Clear Calc 46.10, Est GFR (MDRD) Af Amer 66, Est GFR (MDRD) Non-Af 54 L, BUN/Creatinine Ratio 33.8 H, Glucose 147 H, Calcium 9.3 09/30/21 09:05: Total Bilirubin 1.10 H, Direct Bilirubin 0.47 H, AST 38 H, ALT 42, Alkaline Phosphatase 114, Total Protein 7.7, Albumin 2.6 L, Globulin 5.1 H 09/30/21 09:05: Lipase 51 L 09/30/21 09:05: Ferritin 448 H 09/30/21 09:19: ESR 61 H 09/30/21 11:46: Urine Color Yellow, Urine Clarity Clear, Urine pH 5.0, Ur Specific [place] 1.015, Urine Protein 30 H, Urine Glucose (UA) Normal, Urine Ketones 5 H, Urine Occult Blood 10 H, Urine Nitrite Negative, Urine Bilirubin Negative, Urine Urobilinogen 1 H, Ur Leukocyte Esterase Negative 09/30/21 15:01: C-React Prot Ext Range 366.00 H 09/30/21 15:01: Lactic Acid 1.4 10/01/21 04:57: WBC 19.5 H, RBC 4.24 L, Hgb 13.1, Hct 39.7 L, MCV 93.6, MCH 30.9, MCHC 33.0, RDW Std Deviation 46.1 H, RDW Coeff of Arnoldo 13.6, Plt Count 267, MPV 11.1, Immature Gran % (Auto) 0.700, Neut % (Auto) 80.1 H, Lymph % (Auto) 8.2 L, [place] % (Auto) 10.8 H, Eos % (Auto) 0.0, Baso % (Auto) 0.2, Absolute Neuts (auto) 15.7 H, Absolute Lymphs (auto) 1.60, Nucleated RBC % 0, Diff Path Review February10/01/21 04:57: Sodium 137, Potassium 3.5, Chloride 102, Carbon Dioxide 25.0, Anion Gap 10, BUN 31 H, Creatinine 0.94, Estim Creat Clear Calc 64.65, Est GFR (MDRD) Af Amer 101, Est GFR (MDRD) Non-Af 83, BUN/Creatinine Ratio 33.0 H, Glucose 104, Calcium 8.7 Micro: Microbiology 09/30/21 21:20 Stool Stool Lactoferrin - Final 09/30/21 21:20 Stool C. difficile DNA Amplification - Final 09/30/21 21:20 Stool Stool Occult Blood (TIMI) - Final Occult Blood Positive Radiography Diagnostic Testing: Radiology Impression Abdomen/Pelvis CT 09/30/21 09:46 IMPRESSION: Questionable cholecystitis. Refer to ultrasonography. Unremarkable left lower quadrant. Advanced atherosclerosis. Electronically Signed: Joe Rose MD at 12:23 EST Tel , Service support , Gallbladder Ultrasound 09/30/21 12:27 IMPRESSION: Gallbladder hydrops. Electronically Signed: Keshawn Velazquez MD at 13:25 EST Tel , Service support , Abdomen CT 09/30/21 14:33 IMPRESSION: 1. Significant distention of the gallbladder, associated soft tissue stranding is present however no radiodense calcifications. Early cholecystitis however is a consideration. 2. No masses bowel obstruction abscess free fluid or free air. No evidence diverticulitis. Sigmoid diverticulosis is present. 3. No evidence of obstructive uropathy. 4. Nonspecific segments of mildly distended small bowel in the upper abdomen. Pattern is unchanged. No bowel obstruction. Mild enteritis is a consideration. Electronically Signed: Ksehawn Alexander MD at 17:43 EST Tel , Service support , Assessment & Plan Assessment/Plan (1) Hydrops of gallbladder: PLAN: I have no surgical interventions planned for him during this admission. If his clinical status changes and he develops abdominal pain then reevaluation with a HIDA scan with ejection fraction might be of benefit. But at the present time he seems to be improving.
[2021-10-01] MEDS: Lisinopril 10 MG Tablet PO ×2 (10:46→21:38)
[2021-10-01] MEDS: Ezetimibe 10 MG Tablet PO (10:46)
[2021-10-01] MEDS: Aspirin E.C. 81 MG Tablet PO (10:46)
[2021-10-01] MEDS: Metoprolol Tartrate 25 MG Tablet PO ×2 (10:46→21:38)
[2021-10-01] MEDS: Enoxaparin 40 MG/0.4 ML Syringe SC (10:47)
--- NOTE | 2021-10-01 11:27 | PCM.PN.HOSP ---
Subjective Subjective Follow-up on acute infectious diarrhea: Patient was seen and examined. Objective Data Objective Data Vital Signs: Vital Signs Temp Pulse Resp BP Pulse Ox 98.3 F 76 18 121/62 H 94 10/01/21 08:15 10/01/21 10:46 10/01/21 08:15 10/01/21 10:46 10/01/21 08:15 Oxygen Delivery Method Room Air Weight: 66.3 kg Body Mass Index (BMI) 22.2 Intake & Output: Intake and Output for Last 24 Hours 09/29/21 09/30/21 10/01/21 23:59 23:59 23:59 Intake Total 2049 1600 / 1600 Output Total 300 / 300 Balance 2049 1300 / 1300 Lab / Micro Data Result Diagrams: 10/01/21 04:57 10/01/21 04:57 Labs: Laboratory Results - last 24 hr 09/30/21 09:05: Ferritin 448 H 09/30/21 09:19: ESR 61 H 09/30/21 11:46: Urine Color Yellow, Urine Clarity Clear, Urine pH 5.0, Ur Specific [place] 1.015, Urine Protein 30 H, Urine Glucose (UA) Normal, Urine Ketones 5 H, Urine Occult Blood 10 H, Urine Nitrite Negative, Urine Bilirubin Negative, Urine Urobilinogen 1 H, Ur Leukocyte Esterase Negative 09/30/21 15:01: C-React Prot Ext Range 366.00 H 09/30/21 15:01: Lactic Acid 1.4 10/01/21 04:57: WBC 19.5 H, RBC 4.24 L, Hgb 13.1, Hct 39.7 L, MCV 93.6, MCH 30.9, MCHC 33.0, RDW Std Deviation 46.1 H, RDW Coeff of Arnoldo 13.6, Plt Count 267, MPV 11.1, Immature Gran % (Auto) 0.700, Neut % (Auto) 80.1 H, Lymph % (Auto) 8.2 L, [place] % (Auto) 10.8 H, Eos % (Auto) 0.0, Baso % (Auto) 0.2, Absolute Neuts (auto) 15.7 H, Absolute Lymphs (auto) 1.60, Nucleated RBC % 0, Diff Path Review February10/01/21 04:57: Sodium 137, Potassium 3.5, Chloride 102, Carbon Dioxide 25.0, Anion Gap 10, BUN 31 H, Creatinine 0.94, Estim Creat Clear Calc 64.65, Est GFR (MDRD) Af Amer 101, Est GFR (MDRD) Non-Af 83, BUN/Creatinine Ratio 33.0 H, Glucose 104, Calcium 8.7 Micro: Microbiology 09/30/21 21:20 Stool Enteric Bacteriology - Final 09/30/21 21:20 Stool Stool Lactoferrin - Final 09/30/21 21:20 Stool C. difficile DNA Amplification - Final 09/30/21 21:20 Stool Stool Occult Blood (TIMI) - Final Occult Blood Positive Radiography Diagnostic Testing: Radiology Impression Abdomen/Pelvis CT 09/30/21 09:46 IMPRESSION: Questionable cholecystitis. Refer to ultrasonography. Unremarkable left lower quadrant. Advanced atherosclerosis. Electronically Signed: Joe Rose MD at 12:23 EST Tel , Service support , Gallbladder Ultrasound 09/30/21 12:27 IMPRESSION: Gallbladder hydrops. Electronically Signed: Keshawn Velazquez MD at 13:25 EST Tel , Service support , Abdomen CT 09/30/21 14:33 IMPRESSION: 1. Significant distention of the gallbladder, associated soft tissue stranding is present however no radiodense calcifications. Early cholecystitis however is a consideration. 2. No masses bowel obstruction abscess free fluid or free air. No evidence diverticulitis. Sigmoid diverticulosis is present. 3. No evidence of obstructive uropathy. 4. Nonspecific segments of mildly distended small bowel in the upper abdomen. Pattern is unchanged. No bowel obstruction. Mild enteritis is a consideration. Electronically Signed: Keshawn Alexander MD at 17:43 EST Tel , Service support , Physical Exam Narrative Physical exam: General: Alert, Oriented x3, Cooperative, No apparent distress HEENT: Atraumatic Oral: Moist Mucosa Neck: Supple Lungs: Clear to auscultation Cardiovascular: HS I+II, regular, no murmurs Abdomen: Bowel Sounds Present, Soft, Non Tender Extremities: No edema Assessment & Plan Assessment/Plan (1) Acute diarrhea: PLAN: 1. Acute diarrhea, Likely infectious in etiology, ongoing for 10 days Stool lactoferrin is positive, Stool C. difficile antipanic is negative Stool for occult blood is positive WBC count improved from 23.1 to 19.5 Continue with empiric IV Zosyn for now 2. SUSAN, prerenal, in a patient with baseline creatinine less than 1, secondary to dehydration from #1 Creatinine is now 0.94 from 1.36 Continue IV fluids, repeat BMP in a.m. 3. CAD status post stent/PAD status post stent/hypertension/hyperlipidemia remains stable Continue aspirin, statin,metoprolol, lisinopril Charges/Coding Visit Charges Inpatient E&M: 38239 [facility] Hosp L3
[2021-10-01 11:53] LABS: Magnesium 2.4 mg/dL (1.6-2.6)
[2021-10-01] MEDS: KCL 20MEQ in 0.9% NS 20 MEQ/1,000 ML IV.SOLN. 75 MEQ IV (13:08)
[2021-10-01] MEDS: Potassium Chloride Oral Tablet 20 MEQ PO (13:08)
[2021-10-01] MEDS: Acetaminophen 325 MG Tablet 650 MG PO (14:09)
[2021-10-01] MEDS: Calcium Carbonate 500 MG Tablet PO (21:38)
[2021-10-01] MEDS: Atorvastatin Calcium 80 MG Tablet PO (21:38)
[2021-10-02] VITALS (8 sets, daily range): BP systolic 119–133; BP diastolic 56–62; PULSE 60–72; RESP 14–24; TEMP 36.7–37.6; O2SAT 93–95
[2021-10-02] MEDS: KCL 20MEQ in 0.9% NS 20 MEQ/1,000 ML IV.SOLN. 75 MEQ IV ×2 (02:28→14:59)
[2021-10-02 05:40] LABS: Absolute Lymphocyte Count 1.77 X10^3/uL (0.83-4.51); Absolute Neutrophil Count 16.5 X10^3/uL (2.0-7.7); Basophil# 0.05 X10^3/uL; Basophil% 0.2 % (0-1); Eosinophil# 0.05 X10^3/uL; Eosinophils% 0.2 % (0-5); Hematocrit 34.6 % (40-54); Hemoglobin 11.3 g/dL (13.0-16.5); Lymphocyte # 1.77 X10^3/ul (0.83-4.51); Lymphocyte % 8.7 % (19-41); Mean Corp Hgb Conc 32.7 g/dL (32-36); Mean Corpuscular Hgb 30.9 pg (27.0-32.0); Mean Corpuscular Volume 94.5 fL (80-94); Mean Platelet Vol. 10.3 fl (6.2-12.0); Monocyte# 1.78 X10^3/uL; Monocyte% 8.7 % (0-10); NRBC Flagged by Analyzer 0 % (0-5); Neutrophil # 16.52 X10^3/uL (2.7-7.7); Neutrophil % 81.2 % (47-70); POSITIVE DIFFERENTIAL YES; Platelet Count 245 K/mm3 (150-450); RBC Distribution Width CV 13.9 % (11.6-14.6); RBC Distribution Width SD 48.7 fl (35.1-43.9); Red Blood Count 3.66 M/mm3 (4.6-6.2); White Blood Count 20.4 K/mm3 (4.4-11.0)
[2021-10-02 06:08] LABS: ALB/GLOB Ratio 0.4 RATIO (0.9-2.4); AST(SGOT) 158 U/L (15-37); Alanine Aminotransfer ALT/SGPT 147 U/L (16-61); Albumin, Serum 1.6 g/dL (3.2-5.0); Alkaline Phosphatase 110 U/L (45-117); Anion Gap 5 (5-15); BUN 19 mg/dL (7-18); BUN/Creat Ratio 26.3 RATIO (10-20); Calcium,Total 7.8 mg/dL (8.5-10.1); Chloride 110 mmol/L (98-107); Creatinine, Serum 0.72 mg/dL (0.70-1.30); EST Glomerular Filtration Rate 113 mL/min (>60); Est Glom Filt Rate - Afr Amer 136 mL/min (>60); Estimated Creatinine Clearance 60.78 ml/min; Globulin 3.9 g/dL (2.2-4.2); Glucose 94 mg/dL (74-106); Magnesium 2.6 mg/dL (1.6-2.6); Potassium 3.9 mmol/L (3.5-5.1); Protein, Total 5.5 g/dL (6.4-8.2); Sodium Level 139 mmol/L (136-145)
[2021-10-02 07:18] LABS: Differential Indicated SCAN CRITERIA MET
[2021-10-02] MEDS: Ezetimibe 10 MG Tablet PO (10:53)
[2021-10-02] MEDS: Enoxaparin 40 MG/0.4 ML Syringe SC (10:53)
[2021-10-02] MEDS: Aspirin E.C. 81 MG Tablet PO (10:53)
[2021-10-02] MEDS: Lisinopril 10 MG Tablet PO ×2 (10:53→21:25)
[2021-10-02] MEDS: Metoprolol Tartrate 25 MG Tablet PO ×2 (10:54→21:26)
[2021-10-02] MEDS: Calcium Carbonate 500 MG Tablet PO ×2 (11:01→21:03)
--- NOTE | 2021-10-02 12:56 | PN.HOSP_ITS ---
Subjective Subjective Patient seen and examined. He had no complaints. He said his diarrhea is improving and the frequency has reduced. WBC still remains elevated at 20. Review of systems otherwise negative. Objective Data Objective Data Vital Signs: Vital Signs Temp Pulse Resp BP Pulse Ox 98.6 F 69 16 133/62 H 94 10/02/21 07:27 10/02/21 10:54 10/02/21 07:27 10/02/21 07:27 10/02/21 07:27 Oxygen Delivery Method Room Air Weight: 146 lb 2.664 oz Body Mass Index (BMI) 22.2 Intake & Output: Intake and Output for Last 24 Hours 09/30/21 10/01/21 10/02/21 23:59 23:59 23:59 Intake Total 2049 2231.67 / 2231.67 170 / 1700 Output Total 300 / 300 Balance 2049 1931.67 / 1931.67 170 / 1700 Lab / Micro Data Result Diagrams: 10/02/21 04:40 10/02/21 04:40 Labs: Laboratory Results - last 24 hr 09/30/21 11:46: Urine Color Cancelled, Urine Clarity Cancelled, Urine pH Cancelled, Ur Specific [place] Cancelled, U Specif Grav (Refrac) Cancelled, Urine Protein Cancelled, Urine Glucose (UA) Cancelled, Urine Ketones Cancelled, Urine Occult Blood Cancelled, Urine Nitrite Cancelled, Urine Bilirubin Cancelled, Urine Urobilinogen Cancelled, Ur Leukocyte Esterase Cancelled, Urine RBC Cancelled, Urine WBC Cancelled, Ur Squamous Epith Cells Cancelled, Ur Transition Epith Cell Cancelled, Ur Renal Epithelial Cell Cancelled, Calcium Oxalate Crystal Cancelled, Uric Acid Crystals Cancelled, Triple Phos Crystals Cancelled, Other Crystals Cancelled, Amorphous Sediment Cancelled, Urine Bacteria Cancelled, Hyaline Casts Cancelled, Fine Granular Casts Cancelled, Coarse Granular Casts Cancelled, Waxy Casts Cancelled, RBC Casts Cancelled, WBC Casts Cancelled, Urine Mucus Cancelled, Urine Trichomonas Cancelled, Urine Yeast Cancelled 10/02/21 04:40: WBC 20.4 H, RBC 3.66 L, Hgb 11.3 L, Hct 34.6 L, MCV 94.5 H, MCH 30.9, MCHC 32.7, RDW Std Deviation 48.7 H, RDW Coeff of Arnoldo 13.9, Plt Count 245, MPV 10.3, Immature Gran % (Auto) 1.000 H, Neut % (Auto) 81.2 H, Lymph % (Auto) 8.7 L, [place] % (Auto) 8.7, Eos % (Auto) 0.2, Baso % (Auto) 0.2, Absolute Neuts (auto) 16.5 H, Absolute Lymphs (auto) 1.77, Nucleated RBC % 0, Diff Path Review February10/02/21 04:40: Sodium 139, Potassium 3.9, Chloride 110 H, Carbon Dioxide 24.0, Anion Gap 5, BUN 19 H, Creatinine 0.72, Estim Creat Clear Calc 60.78, Est GFR (MDRD) Af Amer 136, Est GFR (MDRD) Non-Af 113, BUN/Creatinine Ratio 26.3 H, Glucose 94, Calcium 7.8 L, Magnesium 2.6, Total Bilirubin 0.80, AST 158 H, ALT 147 H, Alkaline Phosphatase 110, Total Protein 5.5 L, Albumin 1.6 L, Globulin 3.9, Albumin/Globulin Ratio 0.4 L Micro: Microbiology 09/30/21 21:20 Stool Enteric Bacteriology - Final 09/30/21 21:20 Stool Stool Lactoferrin - Final 09/30/21 21:20 Stool C. difficile DNA Amplification - Final 09/30/21 21:20 Stool Stool Occult Blood (TIMI) - Final Occult Blood Positive Physical Exam Const alert, oriented x3 and no apparent distress Exam Limitations: no limitations HEENT head/scalp atraumatic and moist oral mucous membranes Head and Scalp: normocephalic Eyes PERRL, EOMs intact bilaterally and conjunctivae normal Neck no lymphadenopathy Resp normal respiratory effort, no retractions, no use of accessory muscles and clear to auscultation bilaterally Cardio regular rate, regular rhythm, S1 normal heart sound, S2 normal heart sound and no murmurs GI normal to inspection, nondistended, normoactive bowel sounds, soft to palpation, non-tender, non-distended and hepatosplenomegaly Extremity normal to inspection, full ROM and no clubbing, cyanosis or edema Peripheral Pulses: Yes pulses 2+ throughout Skin no rashes or lesions noted Neuro oriented x3, CN's II-XII intact bilaterally and moves all extremities Sensorium / Orientation: awake and alert Psych affect normal Assessment & Plan Assessment/Plan (1) Acute diarrhea: PLAN: #Diarrhea * improving. Says it is much better now. C diff screen is negative. * wbc s 20 today. on IV zosyn * if diarrhea persists, will consult gastroenterology. * #Pre renal SUSAN: resolved. #CAD s/p stent: on aspirin, statin and metoprolol #Hypertension: on metoprolol and lisinopril. #Hyperlipidemia: on statin and ezetimibe DVT prophylaxis: lovenox Charges/Coding Visit Charges Inpatient E&M: 72395 Subs Hosp L2
--- NOTE | 2021-10-02 13:00 | CASEMGMT ---
RN CM CH[employer] INSTALLER CM to room to meet with patient for initial transition planning/care coordination assessment. PREMA JOSUE introduced self and role at [facility]. Pt voices understanding and consents to assessment at this time. Pt resting in bed in no distress at this time. Pt is A/O at this time and answers all questions appropriately. Care providers, pharmacy, and demographics verified/updated at this time. PCP: Dr Song Specialists: Dr Dunbar--vascular Preferred Pharmacy: [facility] Retail Insurance: [employer] [facility] Prescription Benefit: Yes Living Will/HPOA: States he did these A long time ago but does not know where copies are. Does not wish to re-do them at this time. LNOK: 3 adult children. Dtr: Katy Tobin Living Arrangements: Lives alone. Independent w/ADL's and IADL's. Manages his own medications. Transportation: DtrKaty, takes pt to doctor appts. Pt walks to grocery store most of the time. DME: Denies using any DME and denies needs. HHC/SNF: No hx of either. Denies need for HHC. Pt wishes to return home and states has no concerns with going home at time of discharge. CM to follow for any discharge planning/needs. Pt voices no concerns/needs at this time. Advised pt to ask for CM if any questions/concerns/needs arise. Voices understanding. PLAN: Home Austen JULIAN RN, CM
--- NOTE | 2021-10-02 14:53 | PN.SURG_ITS ---
Subjective Subjective No complaints of abdominal pain. No further diarrhea. Tolerating a diet. Objective Data Objective Data Abdomen is completely soft no rebound guarding or peritoneal signs. Vital Signs: Vital Signs Temp Pulse Resp BP Pulse Ox 99.6 F H 71 24 H 125/59 H 93 10/02/21 14:29 10/02/21 14:29 10/02/21 14:29 10/02/21 14:29 10/02/21 14:29 Oxygen Delivery Method Room Air Weight: 146 lb 2.664 oz Body Mass Index (BMI) 22.2 Intake & Output: Intake and Output for Last 24 Hours 09/30/21 10/01/21 10/02/21 23:59 23:59 23:59 Intake Total 2049 2231.67 / 2231.67 170 / 170 Output Total 300 / 300 Balance 2049 1931.67 / 1931.67 170 / 1700 Lab / Micro Data Result Diagrams: 10/02/21 04:40 10/02/21 04:40 Labs: Laboratory Results - last 24 hr 09/30/21 11:46: Urine Color Cancelled, Urine Clarity Cancelled, Urine pH Cancelled, Ur Specific [place] Cancelled, U Specif Grav (Refrac) Cancelled, Urine Protein Cancelled, Urine Glucose (UA) Cancelled, Urine Ketones Cancelled, Urine Occult Blood Cancelled, Urine Nitrite Cancelled, Urine Bilirubin Cancelled, Urine Urobilinogen Cancelled, Ur Leukocyte Esterase Cancelled, Urine RBC Cancelled, Urine WBC Cancelled, Ur Squamous Epith Cells Cancelled, Ur Transi tion Epith Cell Cancelled, Ur Renal Epithelial Cell Cancelled, Calcium Oxalate Crystal Cancelled, Uric Acid Crystals Cancelled, Triple Phos Crystals Cancelled, Other Crystals Cancelled, Amorphous Sediment Cancelled, Urine Bacteria Cancelled, Hyaline Casts Cancelled, Fine Granular Casts Cancelled, Coarse Granular Casts Cancelled, Waxy Casts Cancelled, RBC Casts Cancelled, WBC Casts Cancelled, Urine Mucus Cancelled, Urine Trichomonas Cancelled, Urine Yeast Cancelled 10/02/21 04:40: WBC 20.4 H, RBC 3.66 L, Hgb 11.3 L, Hct 34.6 L, MCV 94.5 H, MCH 30.9, MCHC 32.7, RDW Std Deviation 48.7 H, RDW Coeff of Arnoldo 13.9, Plt Count 245, MPV 10.3, Immature Gran % (Auto) 1.000 H, Neut % (Auto) 81.2 H, Lymph % (Auto) 8.7 L, [place] % (Auto) 8.7, Eos % (Auto) 0.2, Baso % (Auto) 0.2, Absolute Neuts (auto) 16.5 H, Absolute Lymphs (auto) 1.77, Nucleated RBC % 0, Diff Path Review February10/02/21 04:40: Sodium 139, Potassium 3.9, Chloride 110 H, Carbon Dioxide 24.0, Anion Gap 5, BUN 19 H, Creatinine 0.72, Estim Creat Clear Calc 60.78, Est GFR (MDRD) Af Amer 136, Est GFR (MDRD) Non-Af 113, BUN/Creatinine Ratio 26.3 H, Glucose 94, Calcium 7.8 L, Magnesium 2.6, Total Bilirubin 0.80, AST 158 H, ALT 147 H, Alkaline Phosphatase 110, Total Protein 5.5 L, Albumin 1.6 L, Globulin 3.9, Albumin/Globulin Ratio 0.4 L Micro: Microbiology 09/30/21 21:20 Stool Enteric Bacteriology - Final 09/30/21 21:20 Stool Stool Lactoferrin - Final 09/30/21 21:20 Stool C. difficile DNA Amplification - Final 09/30/21 21:20 Stool Stool Occult Blood (TIMI) - Final Occult Blood Positive Assessment & Plan Assessment/Plan (1) Hydrops of gallbladder: PLAN: No surgical intervention is planned for him. I will see him back as an outpatient.
[2021-10-02] MEDS: Acetaminophen 325 MG Tablet 650 MG PO (14:59)
[2021-10-02] MEDS: Atorvastatin Calcium 80 MG Tablet PO (21:25)
[2021-10-03] MEDS: KCL 20MEQ in 0.9% NS 20 MEQ/1,000 ML IV.SOLN. 75 MEQ IV (03:47)
[2021-10-03 03:48] VITALS: BP 142/57; PULSE 65; RESP 18; TEMP 36.9; O2SAT 95
[2021-10-03 05:06] LABS: Absolute Lymphocyte Count 2.56 X10^3/uL (0.83-4.51); Absolute Neutrophil Count 14.8 X10^3/uL (2.0-7.7); Basophil# 0.07 X10^3/uL; Basophil% 0.4 % (0-1); Eosinophil# 0.21 X10^3/uL; Eosinophils% 1.1 % (0-5); Hematocrit 34.7 % (40-54); Hemoglobin 11.2 g/dL (13.0-16.5); Lymphocyte # 2.56 X10^3/ul (0.83-4.51); Lymphocyte % 13.1 % (19-41); Mean Corp Hgb Conc 32.3 g/dL (32-36); Mean Corpuscular Hgb 30.5 pg (27.0-32.0); Mean Corpuscular Volume 94.6 fL (80-94); Monocyte# 1.65 X10^3/uL; Monocyte% 8.4 % (0-10); NRBC Flagged by Analyzer 0 % (0-5); Neutrophil # 14.83 X10^3/uL (2.7-7.7); Neutrophil % 75.9 % (47-70); POSITIVE DIFFERENTIAL YES; Platelet Count 261 K/mm3 (150-450); RBC Distribution Width CV 13.8 % (11.6-14.6); RBC Distribution Width SD 48.1 fl (35.1-43.9); Red Blood Count 3.67 M/mm3 (4.6-6.2); White Blood Count 19.5 K/mm3 (4.4-11.0)
[2021-10-03 05:18] LABS: Differential Indicated SCAN CRITERIA MET
[2021-10-03 05:32] LABS: ALB/GLOB Ratio 0.4 RATIO (0.9-2.4); AST(SGOT) 152 U/L (15-37); Alanine Aminotransfer ALT/SGPT 157 U/L (16-61); Albumin, Serum 1.5 g/dL (3.2-5.0); Alkaline Phosphatase 131 U/L (45-117); Anion Gap 6 (5-15); BUN 13 mg/dL (7-18); BUN/Creat Ratio 20.1 RATIO (10-20); Chloride 111 mmol/L (98-107); Creatinine, Serum 0.65 mg/dL (0.70-1.30); EST Glomerular Filtration Rate 128 mL/min (>60); Est Glom Filt Rate - Afr Amer 155 mL/min (>60); Estimated Creatinine Clearance 60.78 ml/min; Globulin 4.1 g/dL (2.2-4.2); Glucose 96 mg/dL (74-106); Potassium 3.6 mmol/L (3.5-5.1); Protein, Total 5.6 g/dL (6.4-8.2); Sodium Level 140 mmol/L (136-145)
[2021-10-03 08:11] VITALS: BP 128/64; PULSE 69; RESP 18; TEMP 37.1; O2SAT 98
[2021-10-03] MEDS: Lisinopril 10 MG Tablet PO (08:14)
[2021-10-03] MEDS: Ezetimibe 10 MG Tablet PO (08:14)
[2021-10-03 08:15] VITALS: PULSE 69
[2021-10-03] MEDS: Enoxaparin 40 MG/0.4 ML Syringe SC (08:15)
[2021-10-03] MEDS: Metoprolol Tartrate 25 MG Tablet PO (08:15)
[2021-10-03] MEDS: Aspirin E.C. 81 MG Tablet PO (08:15)
[2021-10-03 09:03] LABS: Pathologist Review Reviewed
[2021-10-03 09:09] LABS: Pathologist Review Reviewed
[2021-10-03 09:20] LABS: Pathologist Review Reviewed
--- NOTE | 2021-10-03 11:34 | DS.PCM_ITS ---
Providers Date of Admission: 09/30/21 Primary Care Physician: Dr. Sherrie Song MD Consultations 10/01/21 08:36 Consult: General Surgery Routine Consulting Provider: Larry Enrique Reason for Consult: abd pain EMERGENT Consult: No MD Notified: Yes Date Notified: 09/30/21 Time Notified: 15:00 Method of Notification: by ER doc Reason For Visit: ABDOMINAL PAIN Diagnosis Discharge Diagnosis (1) Hydrops of gallbladder: Status: Acute Code(s): K82.1 - Hydrops of gallbladder Medications at Discharge Home Medications aspirin 81 mg tablet,delayed release 81 mg PO DAILY 11/08/20 ezetimibe 10 mg tablet 10 mg PO DAILY 11/08/20 prasugrel 10 mg tablet 10 mg PO DAILY 11/08/20 atorvastatin 80 mg tablet 80 mg PO QHS #90 tab 07/10/21 lisinopril 10 mg tablet 10 mg PO BID #180 tab 07/25/21 metoprolol tartrate 50 mg tablet 25 mg PO BID #90 tab 08/07/21 loperamide 2 mg PO Q4H PRN PRN MDD 16mg 09/30/21 Hospital Course Operations None Procedures None Summary of Care Provided Minutes Spent on Discharge: 40 Hospital Course: Patient is a 75-year-old male with a past medical history as outlined who was admitted through the ED on 09/30/2021 with a complaint of diarrhea and worsening abdominal pain for 10 days prior to admission. Pain was mainly in his mid abdomen and right lower quadrant. His primary care doctor had prescribed loperamide but this did not help but he also had decreased appetite so he came into the ED. He denied any recent abdominal surgeries and any history of recent travel or eating undercooked meat. He also denied any history of C. difficile colitis and also any history of diverticulitis. CT of the abdomen and pelvis showed questionable cholecystitis and advanced atherosc lerosis on gallbladder ultrasound showed gallbladder hydrops. He was admitted and managed for intractable diarrhea and abdominal pain. He was hydrated with IV fluids and started on liquid diet. C. difficile testing done was negative and stool cultures and stool for ova and parasites were also negative. Was started on Zosyn. General surgery was consulted on account of hydrops of the gallbladder but no surgical intervention was planned and patient was follow-up with general surgeon on outpatient basis. WBC was elevated as the remained elevated though patient symptoms markedly improved. Patient was able to tolerate and advance diet and did well and diarrhea also resolved. He remained stable and was discharged home on 10/03/2021. He is to follow-up with PCP and general surgery on outpatient basis. Patient seen and examined prior to discharge. He had no complaints and felt well. He was eager to go home. Review of systems otherwise negative. Labs and vitals reviewed. Home medication reviewed and reconciled. Physical Exam Const alert, oriented x3 and no apparent distress General Appearance: cooperative and comfortable Orientation / Consciousness: awake Exam Limitations: no limitations HEENT normocephalic, head/scalp atraumatic and moist oral mucous membranes Eyes PERRL, EOMs intact bilaterally and conjunctivae normal Neck no lymphadenopathy Resp normal respiratory effort, no retractions, no use of accessory muscles and clear to auscultation bilaterally Cardio regular rate, regular rhythm, S1 normal heart sound, S2 normal heart sound and no murmurs GI normal to inspection, nondistended, normoactive bowel sounds, soft to palpation, non-tender, non-distended and hepatosplenomegaly Extremity normal to inspection, full ROM and no clubbing, cyanosis or edema Skin no rashes or lesions noted Neuro oriented x3, CN's II-XII intact bilaterally and moves all extremities Sensorium / Orientation: awake and alert Psych affect normal Weight / BMI Weight Weight: 146 lb 2.664 oz Body Mass Index (BMI) 22.2 ABG / Lab / Microbiology Data Result Diagrams: 10/03/21 04:30 10/03/21 04:30 Laboratory: Laboratory Results - last 24 hr 09/30/21 09:05: Diff Path Review Reviewed 10/01/21 04:57: Diff Path Review Reviewed 10/02/21 04:40: Diff Path Review Reviewed 10/03/21 04:30: WBC 19.5 H, RBC 3.67 L, Hgb 11.2 L, Hct 34.7 L, MCV 94.6 H, MCH 30.5, MCHC 32.3, RDW Std Deviation 48.1 H, RDW Coeff of Arnoldo 13.8, Plt Count 261, MPV 10.0, Immature Gran % (Auto) 1.100 H, Neut % (Auto) 75.9 H, Lymph % (Auto) 13.1 L, [place] % (Auto) 8.4, Eos % (Auto) 1.1, Baso % (Auto) 0.4, Absolute Neuts (auto) 14.8 H, Absolute Lymphs (auto) 2.56, Nucleated RBC % 0, Diff Path Review February10/03/21 04:30: Sodium 140, Potassium 3.6, Chloride 111 H, Carbon Dioxide 23.0, Anion Gap 6, BUN 13, Creatinine 0.65 L, Estim Creat Clear Calc 60.78, Est GFR (MDRD) Af Amer 155, Est GFR (MDRD) Non-Af 128, BUN/Creatinine Ratio 20.1 H, Glucose 96, Calcium 8.0 L, Total Bilirubin 0.50, AST 152 H, ALT 157 H, Alkaline Phosphatase 131 H, Total Protein 5.6 L, Albumin 1.5 L, Globulin 4.1, A lbumin/Globulin Ratio 0.4 L Microbiology: Microbiology 09/30/21 21:20 Stool Enteric Bacteriology - Final 09/30/21 21:20 Stool Stool Lactoferrin - Final 09/30/21 21:20 Stool C. difficile DNA Amplification - Final 09/30/21 21:20 Stool Stool Occult Blood (TIMI) - Final Occult Blood Positive D/C Instructions Discharge Diet: Low fat / Low cholesterol Discharge Activity: Return to Normal Activity Weight Bearing Status: Weight bearing as tolerated Call your doctor if you observe: Fever of 101 or Higher, Shortness of breath, Swelling in the ankles, Increased palpitations (irregular heartbeat) and - (diarrhea) Meaningful Use Info Meaningful Use Diagnoses (Choose all that apply): None applicable Discharge Plan Admission Admit Date/Time: 09/30/21 18:58 Primary Reason for Your Visit: intractable diarrhea Attending Provider: Bere Saleem Primary Care Provider: Sherrie Song Consulting Providers: Larry Enrique Discharge Orders/Prescriptions Prescriptions: Continued ezetimibe 10 mg tablet 10 mg PO DAILY RF: 0 aspirin 81 mg tablet,delayed release (DR/EC) 81 mg PO DAILY RF: 0 prasugrel 10 mg tablet 10 mg PO DAILY RF: 0 loperamide 2 mg tablet 2 mg PO Q4H PRN MDD 16mg PRN (Reason: loose stool) RF: 0 atorvastatin 80 mg tablet 80 mg PO QHS Qty: 90 RF: 3 lisinopril 10 mg tablet 10 mg PO BID Qty: 180 RF: 3 metoprolol tartrate 50 mg tablet 25 mg PO BID Qty: 90 RF: 3 Referrals / Follow Up: Larry Enrique MD [STAFF PHYSICIAN] - Within 1 Week Sherrie Song MD [Primary Care Provider] - Within 2 Weeks Disposition Disposition (needs filled in before D/C Order can be placed): Home, Self Care Charges/Coding Visit Charges Inpatient E&M: 80326 Disch Hosp
[2021-10-03 11:56] VITALS: BP 155/95; PULSE 67; RESP 18; TEMP 36.8; O2SAT 98
[2021-10-03 13:29] LABS: Pathologist Review Reviewed
== END 2021-10-03 12:03 | disposition home or self-care (01) | DRG 392 ==
LOC: ED 19:00 → MS3 19:09
PROVIDERS: Internal Medicine; Admitting Provider Hospitalist; Emergency Provider Student in an Organized Health Care Education/Training Program; PCP Internal Medicine; Visit Provider Student in an Organized Health Care Education/Training Program
DX: A09 Infectious gastroenteritis and colitis, unspecified (principal); K82.1 Hydrops of gallbladder; N17.9 Acute kidney failure, unspecified; E86.0 Dehydration; I25.10 Atherosclerotic heart disease of native coronary artery without angina pectoris; I10 Essential (primary) hypertension; E78.5 Hyperlipidemia, unspecified; G47.00 Insomnia, unspecified; F17.210 Nicotine dependence, cigarettes, uncomplicated; Z79.02 Long term (current) use of antithrombotics/antiplatelets; Z79.82 Long term (current) use of aspirin; Z79.899 Other long term (current) drug therapy; I25.2 Old myocardial infarction; Z95.5 Presence of coronary angioplasty implant and graft
CPT/HCPCS: 36415; 74176; 74177; 76705; 80048; 80053; 80076; 81001; 82274; 82728; 83605; 83630; 83690; 83735; 85025; 85652; 86140; 87177; 87209; 87493; 87506; 93005; 99284; 99406; J7030; J7040; Q9967; A4216; J2405

== ENCOUNTER → 2021-10-12 09:45 | Outpatient (CLI) | payer MEDICARE, MEDICAID, SELFPAY ==
[2021-10-12 12:22] LABS: Absolute Lymphocyte Count 3.19 X10^3/uL (0.83-4.51); Absolute Neutrophil Count 7.3 X10^3/uL (2.0-7.7); Basophil# 0.09 X10^3/uL; Basophil% 0.8 % (0-1); Eosinophil# 0.26 X10^3/uL; Eosinophils% 2.2 % (0-5); Lymphocyte # 3.19 X10^3/ul (0.83-4.51); Lymphocyte % 27.1 % (19-41); Mean Corp Hgb Conc 31.7 g/dL (32-36); Mean Corpuscular Hgb 30.4 pg (27.0-32.0); Mean Platelet Vol. 9.7 fl (6.2-12.0); Monocyte# 0.85 X10^3/uL; Monocyte% 7.2 % (0-10); NRBC Flagged by Analyzer 0 % (0-5); Neutrophil # 7.27 X10^3/uL (2.7-7.7); Neutrophil % 61.9 % (47-70); Platelet Count 544 K/mm3 (150-450); RBC Distribution Width SD 49.1 fl (35.1-43.9); Red Blood Count 4.27 M/mm3 (4.6-6.2); White Blood Count 11.8 K/mm3 (4.4-11.0)
[2021-10-12 12:37] LABS: Vitamin D,25 Hydroxy 35.4 ng/mL
[2021-10-12 12:39] LABS: ALB/GLOB Ratio 0.5 RATIO (0.9-2.4); AST(SGOT) 67 U/L (15-37); Alanine Aminotransfer ALT/SGPT 143 U/L (16-61); Albumin, Serum 2.4 g/dL (3.2-5.0); Alkaline Phosphatase 132 U/L (45-117); Anion Gap 4 (5-15); BUN 12 mg/dL (7-18); BUN/Creat Ratio 17.3 RATIO (10-20); Calcium,Total 9.3 mg/dL (8.5-10.1); Chloride 105 mmol/L (98-107); Cholesterol 123 mg/dL (200); EST Glomerular Filtration Rate 118 mL/min (>60); Est Glom Filt Rate - Afr Amer 143 mL/min (>60); Globulin 4.8 g/dL (2.2-4.2); Glucose 92 mg/dL (74-106); High Density Lipoprotein 23 mg/dL; Potassium 3.9 mmol/L (3.5-5.1); Protein, Total 7.2 g/dL (6.4-8.2); Sodium Level 137 mmol/L (136-145); Triglycerides 135 mg/dL; Very Low Density Lipoprotein 27 mg/dL (5-40)
== END ==
PROVIDERS: PCP Internal Medicine; Referring Provider Internal Medicine; Visit Provider Internal Medicine
DX: E78.5 Hyperlipidemia, unspecified (principal); D72.829 Elevated white blood cell count, unspecified; E55.9 Vitamin D deficiency, unspecified
CPT/HCPCS: 36415; 80053; 80061; 82306; 85025

== ENCOUNTER → 2022-02-14 | Outpatient (CLI) | payer MEDICARE, MEDICAID, SELFPAY ==
--- NOTE | 2022-02-14 14:10 | ECHOD_ITS ---
Reason For Study: MURMUR Procedure This was a 2D Doppler, Color Flow transthoracic echocardiogram. The exam was of adequate technical quality. Exam performed in department. Left Ventricle Normal LV size. Left ventricular systolic function is normal. The estimated ejection fraction is 55 %. No evidence for diastolic dysfunction. No regional wall motion abnormalities noted. Right Ventricle Normal RV size. Normal systolic function. Atria Normal left atrium. Normal right atrium. No doppler evidence for ASD. Mitral Valve There is no mitral annular calcification. Normal mitral valve. Trivial mitral valve insufficiency. Tricuspid Valve Normal tricuspid valve. Trivial tricuspid valve insufficiency. Right ventricular systolic pressure estimated to be 25 mmHg. Aortic Valve Trisinus/trileaflet aortic valve. Mild focal aortic valve calcification. Pulmonic Valve The pulmonic valve is not well visualized. Great Vessels Normal sized aortic root. Pericardium/Pleural No pericardial effusion. MMode/2D Measurements & Calculations LVIDd: 4.5 cm IVSd: 1.2 cm Ao root diam: 3.2 cm LVIDs: 3.0 cm LVPWd: 1.2 cm RVDd: 3.1 cm FS: 32.5 % LAV(MOD-bp): 36.2 ml LVAd ap4: 31.7 cm2 SV(MOD-sp4): 58.7 ml LAV(MOD-bp) Indexed: 19.6 ml/m2 LVLd ap4: 7.9 cm LAV(MOD-sp2): 35.5 ml EDV(MOD-sp4): 104.7 ml LAV(MOD-sp4): 37.2 ml EDV(sp4-el): 107.7 ml LVAs ap4: 18.5 cm2 LVLs ap4: 6.6 cm ESV(MOD-sp4): 46.0 ml ESV(sp4-el): 44.5 ml EF(MOD-sp4): 56.1 % EF(sp4-el): 58.7 % SV(sp4-el): 63.2 ml LA A4 area: 14.9 cm2 LA dimension(2D): 3.6 cm RA A4 area: 13.8 cm2 Time Measurements MV dec time: 0.24 sec Doppler Measurements & Calculations MV E max james: 73.3 cm/sec Lat Peak E' James: 7.1 cm/sec Med Peak E' James: 7.3 cm/sec MV A max james: 99.7 cm/sec E/E' lat: 10.3 E/E' med: 10.0 MV E/A: 0.74 Ao V2 max: 127.5 cm/sec LV V1 max: 88.4 cm/sec PA V2 max: 86.4 cm/sec Ao max P.5 mmHg LV V1 max P.1 mmHg TR max james: 233.5 cm/sec TR max P.8 mmHg ECHO/Echo Complete Interpretation Summary Left ventricular systolic function is normal. The estimated ejection fraction is 55 %. Trivial mitral valve insufficiency. Trivial tricuspid valve insufficiency. Mild focal aortic valve calcification. Right ventricular systolic pressure estimated to be 25 mmHg. No evidence for diastolic dysfunction. Ordering Physician: Aram Baxter Referring Physician: PEARL MARTINEZ Performed By: Luna Ruff RDCS
== END | disposition home or self-care (01) ==
LOC: CVS 14:09
PROVIDERS: PCP Internal Medicine; Referring Provider Internal Medicine Cardiovascular Disease; Visit Provider Internal Medicine Cardiovascular Disease
DX: I25.10 Atherosclerotic heart disease of native coronary artery without angina pectoris (principal); E78.2 Mixed hyperlipidemia; I10 Essential (primary) hypertension; R01.1 Cardiac murmur, unspecified; Z95.5 Presence of coronary angioplasty implant and graft
CPT/HCPCS: 93306

== ENCOUNTER 2022-03-16 19:50 | Observation (INO) | payer MEDICARE, MEDICAID, SELFPAY ==
[2022-03-16 19:51] VITALS: BP 136/64; PULSE 84; RESP 18; TEMP 36.2; O2SAT 98; BMI 23.5
[2022-03-16] MEDS: Ondansetron 4 MG/2 ML Vial IV (20:33)
[2022-03-16] MEDS: Dicyclomine 20 MG/2 ML Vial IM (20:33)
[2022-03-16 20:37] LABS: Absolute Lymphocyte Count 1.85 X10^3/uL (0.83-4.51); Absolute Neutrophil Count 25.9 X10^3/uL (2.0-7.7); Basophil# 0.07 X10^3/uL; Basophil% 0.2 % (0-1); Eosinophil# 0.01 X10^3/uL; Hematocrit 49.9 % (40-54); Hemoglobin 16.4 g/dL (13.0-16.5); Lymphocyte # 1.85 X10^3/ul (0.83-4.51); Mean Corp Hgb Conc 32.9 g/dL (32-36); Mean Corpuscular Hgb 30.7 pg (27.0-32.0); Mean Corpuscular Volume 93.4 fL (80-94); Mean Platelet Vol. 10.4 fl (6.2-12.0); Monocyte# 2.62 X10^3/uL; Monocyte% 8.5 % (0-10); NRBC Flagged by Analyzer 0 % (0-5); Neutrophil # 25.89 X10^3/uL (2.7-7.7); Neutrophil % 84.6 % (47-70); POSITIVE COUNT YES; POSITIVE DIFFERENTIAL YES; Platelet Count 282 K/mm3 (150-450); RBC Distribution Width CV 13.9 % (11.6-14.6); RBC Distribution Width SD 47.8 fl (35.1-43.9); Red Blood Count 5.34 M/mm3 (4.6-6.2)
[2022-03-16] MEDS: 0.9% Normal Saline 1,000 ML 150 ML IV (20:40)
[2022-03-16 20:43] LABS: Differential Indicated SCAN CRITERIA MET; White Blood Count 30.7 K/mm3 (4.4-11.0)
[2022-03-16 20:47] LABS: Color, Urine Yellow (Yellow); Glucose, Dipstick Normal (Normal); Ketone-Dipstick 50 mg/dl (Negative); Leukocyte Esterase-Dipstick 25 /ul (Negative); Nitrite-Dipstick Negative (Negative); Occult Blood-Urine Negative /ul (Negative); Protein-Dipstick 30 mg/dl (Negative); Specific Gravity, Urine 1.025 (1.002-1.030); Urine Clarity Clear (Clear); Urine Urobilinogen 1 mg/dl (Normal)
[2022-03-16 20:57] LABS: Urine Bilirubin Dipstick 1 mg/dL (Negative)
[2022-03-16 20:58] LABS: AST(SGOT) 18 U/L (15-37); Alanine Aminotransfer ALT/SGPT 24 U/L (16-61); Albumin, Serum 3.5 g/dL (3.2-5.0); Alkaline Phosphatase 113 U/L (45-117); Anion Gap 9 (5-15); BUN 19 mg/dL (7-18); BUN/Creat Ratio 19.8 RATIO (10-20); Bilirubin, Direct 0.31 mg/dL (0.00-0.30); Calcium,Total 9.6 mg/dL (8.5-10.1); Chloride 101 mmol/L (98-107); Creatinine, Serum 0.96 mg/dL (0.70-1.30); EST Glomerular Filtration Rate 81 mL/min (>60); Est Glom Filt Rate - Afr Amer 98 mL/min (>60); Estimated Creatinine Clearance 62.16 ml/min; Globulin 4.1 g/dL (2.2-4.2); Glucose 122 mg/dL (74-106); Lipase 76 U/L (73-393); Potassium 4.2 mmol/L (3.5-5.1); Protein, Total 7.6 g/dL (6.4-8.2); Sodium Level 135 mmol/L (136-145)
[2022-03-16 21:00] LABS: Bacteria 2+ /hpf (None Seen); Mucous, Urine 3+ /hpf (<or=2+); Red Blood Cells-Urine 0-5 SEEN /hpf (0-5); Squamous Epithelial Cells - UA 0-5 SEEN /hpf (0-5); White Blood Cells 0-5 SEEN /hpf (0-5)
[2022-03-16 21:01] LABS: Fine Granular Cast- Urine 5-10 SEEN /lpf (0-5)
[2022-03-16 21:02] LABS: Coarse Granular Cast 5-10 SEEN /lpf (0-5 /lpf)
[2022-03-16 21:09] LABS: Differential Comment SEE COMMENTS
[2022-03-16 21:10] LABS: Anisocytosis 1+; Macrocytosis 1+; Platelet Estimate ADEQUATE (ADEQ); Red Cell Morphology N CHROM NORMAL (NORM C&C)
--- NOTE | 2022-03-16 21:16 | CT_ITS ---
EXAM: CT ABDOMEN AND PELVIS WITH INTRAVENOUS CONTRAST CLINICAL INDICATION: abd pain, leukocytosis -- IV PO Contrast TECHNIQUE: Helically acquired images were obtained of the abdomen and pelvis with intravenous contrast. This CT exam was performed using one or more of the following dose reduction techniques: automated exposure control, adjustment of the mA and/or kV according to patient size, and/or use of iterative reconstruction technique. This report was created using [employer] report generation technology. CONTRAST: Oral and amp; IV Gastrografin and amp; 100mL Isovue-300 RADIATION DOSE: CTDIvol = 14.46 mGy, DLP = 679.48 mGy-cm COMPARISON: September 30, 2021, there was markedly distended gallbladder with surrounding soft tissue stranding but no obvious stones on prior CT, prominent distention. Gallbladder hydrops without stone or sludge but tiny polyps on ultrasound the same day. FINDINGS: LOWER THORAX: Heavily calcified aortoiliac vessels. The aorta measures 2.5 cm at the aortic hiatus, nonaneurysmal. Severe calcifications and severe stenosis at the proximal 1.1 cm of the SMA, similar to prior exam. Coarse calcification and at least 50% stenosis of the proximal celiac axis. Severe calcification and apparent stenosis at the origin of the more superior and larger of 2 right renal arteries. Marked calcification and high-grade stenosis of the larger and more inferior of 2 left renal arteries. Heavily calcified infrarenal aorta and bilateral external iliac stents, left common iliac artery stent, bilateral SFA stents, longer on the left. Multifocal high-grade appearing stenoses including at the origin of the right SFA stent. No retroperitoneal hematoma. Patent NATALIE, heavily calcified stenotic origin. Right coronary artery presumed stent. No infiltrate or effusion in the lung bases. Upper limits of normal heart size. Slight hiatal hernia. ABDOMEN: LIVER: Unremarkable. Homogeneous. No focal mass. GALLBLADDER AND BILE DUCTS: More complex appearance of the gallbladder, it is now only mildly distended but with lobulated contour of the fundus and some incomplete internal septations in the fundus, and some heterogeneous internal contents suggesting sludge or stone. No surrounding inflammation. Proximal gallbladder measures 3.5 cm AP, the region of the fundus measures 2.7 cm AP. No surrounding soft tissue stranding. No intra- or extrahepatic biliary ductal dilation. PANCREAS: Unremarkable. No focal cystic or solid mass. SPLEEN: Unremarkable. Normal size without focal cystic or solid mass. ADRENALS: Unremarkable. No nodules. KIDNEYS AND URETERS: Unremarkable. Normal renal size and position. No hydronephrosis. STOMACH AND BOWEL: Oral contrast moderately distends the stomach and mild dilute contrast in the small bowel. Suspicion of multifocal small bowel wall thickening and jejunal loops and to lesser extent distally. Mild mucosal enhancement and mildly thick-walled appearance throughout most of the proximal half of the colon. Moderate-marked diverticulosis in the distal colon, no evidence of acute diverticulitis. Mild mesenteric adenopathy. Suspicion of enterocolitis. PELVIS: APPENDIX: There is slight mucosal enhancement of the appendix, similar to appearance of right colon. BLADDER: Unremarkable. REPRODUCTIVE: Unremarkable as visualized. No mass. ABDOMEN and PELVIS: INTRAPERITONEAL SPACE: Unremarkable. No ascites or other fluid collection. No free air. BONES/JOINTS: Mild annular disc bulge at L4-5 and L5-S1. No suspicious lytic or blastic abnormality. SOFT TISSUES: Unremarkable. No discrete abdominal or pelvic wall hernia. VASCULATURE: See above. LYMPH NODES: See above. CT/Abdomen/Pelvis WITH Contrast IMPRESSION: 1. Suspicion of enterocolitis involving multiple small bowel loops and most of the proximal half of the colon.. Cannot exclude a mild component of bowel ischemia, there are high-grade stenoses of the proximal SMA and at the origin of the NATALIE but the visible branches appear patent. 2. Marked diverticulosis distally, no evidence of acute diverticulitis or appendicitis. 3. Severe atherosclerotic and peripheral vascular disease. 4. No evidence of active gallbladder inflammation or prominent distention as previously seen but the fundus is now lobulated in contour with some incomplete septations, nonspecific, and the gallbladder is mildly distended. Electronically Signed: Marika Braga MD at 23:41 EDT ,
--- NOTE | 2022-03-16 21:43 | EDS_ITS ---
[facility] <Dr. Sandy Calvin MD - Last Filed: 03/16/22 21:48> History of Present Illness Chief Complaint: Abd Pain Informant: patient Onset/Context/Timing Onset: Days (4 days) Context: Gradual Onset Timing: Waxes and wanes Current Severity: Mild Maximum Severity: Moderate Narrative Narrative: Patient presents with 4-day history of abdominal cramping with nausea, vomiting, and diarrhea. Patient states he has had maybe 3 or 4 episodes of vomiting total. He has been having 2-3 episodes of diarrhea a day. He denies blood in the stool or emesis. He denies fever. Patient had a similar illness in September of last year that required a 3 or 4-day hospital stay. On review of records he was diagnosed with hydrops of the gallbladder and diarrheal illness. He reportedly followed up as an outpatient for repeat gallbladder imaging and it had returned to normal size. He has not had a cholecystectomy. Patient denies recent antibiotic use. No history of C. difficile. [facility] <Dr. Sandy Calvin MD - Last Filed: 03/16/22 21:48> [facility] Medical History Atherosclerosis of [place] artery of extremity with intermittent claudication Atherosclerotic heart disease of [place] coronary artery without angina pectoris Bilateral carotid artery disease Bilateral carotid bruits CAD (coronary artery disease) Cardiac murmur Cerebrovascular disease COPD (chronic obstructive pulmonary disease) Essential hypertension History of myocardial infarction History of stress test Hydrops of gallbladder Mixed hyperlipidemia Old myocardial infarction Peripheral vascular angioplasty status Home Medications aspirin 81 mg tablet,delayed release 81 mg PO DAILY 11/08/20 [History Last Taken 09/30/21] atorvastatin 80 mg tablet 80 mg PO QHS #90 tab 07/10/21 [Rx Last Taken 09/29/21] lisinopril 10 mg tablet 10 mg PO BID #180 tab 07/25/21 [Rx Last Taken 09/30/21] loperamide 2 mg PO Q4H PRN PRN MDD 16mg 09/30/21 [History Last Taken 09/30/21] metoprolol tartrate 50 mg tablet 25 mg PO BID #90 tab 11/02/21 [Rx Last Taken Unknown] ezetimibe 10 mg tablet 10 mg PO DAILY #90 tab 01/31/22 [Rx Last Taken Unknown] prasugrel 10 mg tablet 10 mg PO DAILY #90 tab 03/14/22 [Rx Last Taken Unknown] Allergy/AdvReac Type Severity Reaction Status Date / Time clopidogrel [From Plavix] Allergy Intermediate Hives Verified 03/16/22 19:53 Family History Father Colon cancer Mother Hypertension Diabetes Surgical History H/O cardiac catheterization Presence of coronary angioplasty implant and graft (~12/2008) Presence of stent in coronary artery (~12/28/08) Status post insertion of iliac artery stent (~12/2008) Social History Smoking Status: Current every day smoker tobacco type: cigarettes Tobacco: How many years used: 45 alcohol intake: current alcohol intake frequency: a few times a week Alcohol type: beer substance use type: does not use caffeine: Yes Type: coffee Number of servings: 3 what type of physical activity do you participate in: walking frequency: 3-4 times per week ROS <Dr. Sandy Calvin MD - Last Filed: 03/16/22 21:48> ROS ED Constitutional Constitutional ED: Denies chills or fever(s) Eyes Eyes: Denies change in vision or discharge from eye(s) ENT ENT ED: Denies discharge from eye(s), rhinorrhea or sore throat Cardiovascular Cardiovascular: Denies chest pain or palpitations Respiratory/Chest Respiratory/Chest: Denies cough or dyspnea Gastrointestinal Gastrointestinal: Reports abdominal pain, diarrhea, nausea and vomiting Genitourinary Genitourinary ED: Denies difficulty urinating or dysuria Musculoskeletal Musculoskeletal: Denies back pain or extremity pain Integumentary Denies Abrasions or rash Neurologic Neurologic: Denies headache(s) or weakness Allergic/Immunologic Allergic/Immunologic ED: Denies lip swelling or urticaria EXAM <Dr. Sandy Calvin MD - Last Filed: 03/16/22 21:48> Physical Exam Const Vital Signs: 03/16/22 19:51 Temperature 97.1 F L Temperature Source Temporal Pulse Rate 84 Respiratory Rate 18 Blood Pressure 136/64 H Blood Pressure Mean 88 Pulse Ox 98 Oxygen Delivery Method Room Air Positive well nourished and well developed General Appearance ED: well developed HEENT Reports dry mucous membranes Mouth ED: Yes dry mucous membranes Mouth: dry mucous membranes Eyes PERRL and EOMs intact bilaterally Neck supple Chest Wall inspection of chest normal and palpation of chest normal Resp normal respiratory effort and clear to auscultation bilaterally Cardio regular rate and regular rhythm GI Auscultation: hypoactive bowel sounds Palpation: soft and tender other (Minimal mid to lower abdominal tenderness palpation. No guarding or rebound.) Extremity normal to inspection Neuro oriented x3 Sensorium / Orientation: alert Psych mental status grossly normal Skin no rashes or lesions noted <Dr. Srikanth Quintana MD - Last Filed: 03/17/22 00:06> Physical Exam Const Vital Signs: 03/16/22 19:51 Temperature 97.1 F L Temperature Source Temporal Pulse Rate 84 Respiratory Rate 18 Blood Pressure 136/64 H Blood Pressure Mean 88 Pulse Ox 98 Oxygen Delivery Method Room Air MDM <Dr. Sandy Calvin MD - Last Filed: 03/16/22 21:48> MDM MDM Narrative Medical decision making narrative: Patient was given IV fluids along with Zofran and Bentyl. Laboratory evaluation ordered along with urinalysis. Lab Data Attestation: I reviewed the patient's lab results. Labs: Laboratory Results - last 24 hr 03/16/22 03/16/22 03/16/22 20:29 20:29 20:35 WBC 30.7 H* RBC 5.34 Hgb 16.4 Hct 49.9 MCV 93.4 MCH 30.7 MCHC 32.9 RDW Std Deviation 47.8 H RDW Coeff of Arnoldo 13.9 Plt Count 282 MPV 10.4 Immature Gran % (Auto) 0.700 Neut % (Auto) 84.6 H Lymph % (Auto) 6.0 L [place] % (Auto) 8.5 Eos % (Auto) 0.0 Baso % (Auto) 0.2 Absolute Neuts (auto) 25.9 H Absolute Lymphs (auto) 1.85 Nucleated RBC % 0 Differential Comment SEE COMMENTS Diff Path Review May foll Platelet Estimate ADEQUATE RBC Morphology N CHROM Anisocytosis 1+ Macrocytosis 1+ Sodium 135 L Potassium 4.2 Chloride 101 Carbon Dioxide 25.0 Anion Gap 9 BUN 19 H Creatinine 0.96 Estim Creat Clear Calc 62.16 Est GFR (MDRD) Af Amer 98 Est GFR (MDRD) Non-Af 81 BUN/Creatinine Ratio 19.8 Glucose 122 H Calcium 9.6 Total Bilirubin 1.10 H Direct Bilirubin 0.31 H AST 18 ALT 24 Alkaline Phosphatase 113 Total Protein 7.6 Albumin 3.5 Globulin 4.1 Lipase 76 Urine Color Yellow Urine Clarity Clear Urine pH 5.0 Ur Specific [place] 1.025 Urine Protein 30 H Urine Glucose (UA) Normal Urine Ketones 50 H Urine Occult Blood Negative Urine Nitrite Negative Urine Bilirubin 1 H Urine Urobilinogen 1 H Ur Leukocyte Esterase 25 H Urine RBC 0-5 SEEN Urine WBC 0-5 SEEN Ur Squamous Epith Cells 0-5 SEEN Urine Bacteria 2+ Fine Granular Casts 5-10 SEEN Coarse Granular Casts 5-10 SEEN Urine Mucus 3+ Radiography Diagnostic Testing: Clinical Impression(s) from Imaging Studies Abdomen/Pelvis CT 03/16/22 21:16 IMPRESSION: 1. Suspicion of enterocolitis involving multiple small bowel loops and most of the proximal half of the colon.. Cannot exclude a mild component of bowel ischemia, there are high-grade stenoses of the proximal SMA and at the origin of the NATALIE but the visible branches appear patent. 2. Marked diverticulosis distally, no evidence of acute diverticulitis or appendicitis. 3. Severe atherosclerotic and peripheral vascular disease. 4. No evidence of active gallbladder inflammation or prominent distention as previously seen but the fundus is now lobulated in contour with some incomplete septations, nonspecific, and the gallbladder is mildly distended. Electronically Signed: Marika Braga MD at 23:41 EDT , Treatment and Re-Evaluation Narrative: On repeat evaluation patient reports feeling improved. Lab work reveals significant leukocytosis of 30.7. Slight left shift noted with 84% neutrophils. Chemistry studies largely unremarkable. LFTs significant only for total bili of 1.1, direct bili 0.31. Lipase is normal. Urinalysis does reveal 2+ bacteria but 0-5 white cells and no nitrates. 50 ketones are noted. Stool studies have been ordered should patient be able to provide us a sample. Given his significant leukocytosis CT scan with p.o. and IV contrast is ordered. This will be signed out to oncoming physician for final review and disposition. <Dr. Srikanth Quintana MD - Last Filed: 03/17/22 00:06> [facility] MDM Narrative Medical decision making narrative: Patient checked out to me. CT returned showing signs/findings of enterocolitis, there previously mentioned chronic gallbladder mucocele, and signs of severe vascular disease which is already known to him. The radiologist did mention that he was having trouble ruling out areas of ischemic bowel. I examined the patient. He said at no point was his abdominal pain ever severe, and after being medicated he feels better, I reexamined him he has no peritoneal signs he is minimally tender throughout the lower abdomen, very benign abdomen. I do not think he is having any ischemic bowel acutely. He does have a significant leukocytosis, there are no immature cells noted to suggest leukemia. He has not yet had diarrhea to submit for testing, so I am holding on treating with any antibiotics since I do not have a definite source to treat. His vital signs are stable and he is not clinically septic, discussed with hospitalist who requested that we had blood cultures that is done, and we will admit to medical surgical floor. Lab Data Attestation: I reviewed the patient's lab results. Labs: Laboratory Results - last 24 hr 03/16/22 03/16/22 03/16/22 20:29 20:29 20:35 WBC 30.7 H* RBC 5.34 Hgb 16.4 Hct 49.9 MCV 93.4 MCH 30.7 MCHC 32.9 RDW Std Deviation 47.8 H RDW Coeff of Arnoldo 13.9 Plt Count 282 MPV 10.4 Immature Gran % (Auto) 0.700 Neut % (Auto) 84.6 H Lymph % (Auto) 6.0 L [place] % (Auto) 8.5 Eos % (Auto) 0.0 Baso % (Auto) 0.2 Absolute Neuts (auto) 25.9 H Absolute Lymphs (auto) 1.85 Nucleated RBC % 0 Differential Comment SEE COMMENTS Diff Path Review May foll Platelet Estimate ADEQUATE RBC Morphology N CHROM Anisocytosis 1+ Macrocytosis 1+ Sodium 135 L Potassium 4.2 Chloride 101 Carbon Dioxide 25.0 Anion Gap 9 BUN 19 H Creatinine 0.96 Estim Creat Clear Calc 62.16 Est GFR (MDRD) Af Amer 98 Est GFR (MDRD) Non-Af 81 BUN/Creatinine Ratio 19.8 Glucose 122 H Calcium 9.6 Total Bilirubin 1.10 H Direct Bilirubin 0.31 H AST 18 ALT 24 Alkaline Phosphatase 113 Total Protein 7.6 Albumin 3.5 Globulin 4.1 Lipase 76 Urine Color Yellow Urine Clarity Clear Urine pH 5.0 Ur Specific [place] 1.025 Urine Protein 30 H Urine Glucose (UA) Normal Urine Ketones 50 H Urine Occult Blood Negative Urine Nitrite Negative Urine Bilirubin 1 H Urine Urobilinogen 1 H Ur Leukocyte Esterase 25 H Urine RBC 0-5 SEEN Urine WBC 0-5 SEEN Ur Squamous Epith Cells 0-5 SEEN Urine Bacteria 2+ Fine Granular Casts 5-10 SEEN Coarse Granular Casts 5-10 SEEN Urine Mucus 3+ Radiography Diagnostic Testing: Clinical Impression(s) from Imaging Studies Abdomen/Pelvis CT 03/16/22 21:16 IMPRESSION: 1. Suspicion of enterocolitis involving multiple small bowel loops and most of the proximal half of the colon.. Cannot exclude a mild component of bowel ischemia, there are high-grade stenoses of the proximal SMA and at the origin of the NATALIE but the visible branches appear patent. 2. Marked diverticulosis distally, no evidence of acute diverticulitis or appendicitis. 3. Severe atherosclerotic and peripheral vascular disease. 4. No evidence of active gallbladder inflammation or prominent distention as previously seen but the fundus is now lobulated in contour with some incomplete septations, nonspecific, and the gallbladder is mildly distended. Electronically Signed: Marika Braga MD at 23:41 EDT Reading Location ID and State: [facility] / [place] Tel , Service support , Discharge Plan Triage Chief Complaint: Abd Pain ED Provider: Sandy Calvin Dx/Rx/DC Orders Clinical Impression: Enterocolitis, Leukocytosis, Dehydration, Abdominal pain, lower Prescriptions: No Action aspirin 81 mg tablet,delayed release (DR/EC) 81 mg PO DAILY RF: 0 loperamide 2 mg tablet 2 mg PO Q4H PRN MDD 16mg PRN (Reason: loose stool) RF: 0 atorvastatin 80 mg tablet 80 mg PO QHS Qty: 90 RF: 3 lisinopril 10 mg tablet 10 mg PO BID Qty: 180 RF: 3 metoprolol tartrate 50 mg tablet 25 mg PO BID Qty: 90 RF: 3 ezetimibe 10 mg tablet 10 mg PO DAILY Qty: 90 RF: 3 prasugrel 10 mg tablet 10 mg PO DAILY Qty: 90 RF: 3 Primary Care Provider: Sherrie Song Referrals: Sherrie Song MD [Primary Care Provider] - Disposition Disposition: Acute Care Hospital [facility]
[2022-03-17] VITALS (11 sets, daily range): BP systolic 134–160; BP diastolic 52–68; PULSE 63–88; RESP 16–19; TEMP 36.4–36.9; O2SAT 95–99; BMI 22.7
--- NOTE | 2022-03-17 00:12 | HP.PCM.HOS_ITS ---
HPI - General General Date of Admission: 03/16/22 HPI Narrative JOSEMANUEL GLORIA, is a 76 M with a significant history of CAD status post stents on dual antiplatelet therapy and statins, extensive peripheral arterial occlusive disease with bilateral carotid artery stents and stents in a vessels of bilateral legs who continues to smoke presenting with cramping progressively worsening nonradiating periumbilical pain that started about 4 days ago. He denies any aggravating or ameliorating factors to the pain. Associated for symptoms is nausea, some vomiting and diarrhea. Finally he has anorexia. He denies any fever or chills. Nurse report that collecting stool at the emergency department was blood-tinged. Of note in September 2021 patient presented with similar symptoms. He report that at that time (September 2021) diarrhea was more extensive. His abdominal pain on this presentation and that in September 2021 looks similar. [facility] Medical History Atherosclerosis of [place] artery of extremity with intermittent claudication Atherosclerotic heart disease of [place] coronary artery without angina pectoris Bilateral carotid artery disease Bilateral carotid bruits CAD (coronary artery disease) Cardiac murmur Cerebrovascular disease COPD (chronic obstructive pulmonary disease) Essential hypertension History of myocardial infarction History of stress test Hydrops of gallbladder Mixed hyperlipidemia Old myocardial infarction Peripheral vascular angioplasty status Home Medications aspirin 81 mg tablet,delayed release 81 mg PO DAILY 11/08/20 [History Last Taken 09/30/21] atorvastatin 80 mg tablet 80 mg PO QHS #90 tab 07/10/21 [Rx Last Taken 09/29/21] lisinopril 10 mg tablet 10 mg PO BID #180 tab 07/25/21 [Rx Last Taken 09/30/21] loperamide 2 mg PO Q4H PRN PRN MDD 16mg 09/30/21 [History Last Taken 09/30/21] metoprolol tartrate 50 mg tablet 25 mg PO BID #90 tab 11/02/21 [Rx Last Taken Unknown] ezetimibe 10 mg tablet 10 mg PO DAILY #90 tab 01/31/22 [Rx Last Taken Unknown] prasugrel 10 mg tablet 10 mg PO DAILY #90 tab 03/14/22 [Rx Last Taken Unknown] Allergy/AdvReac Type Severity Reaction Status Date / Time clopidogrel [From Plavix] Allergy Intermediate Hives Verified 03/16/22 19:53 Family History Father Colon cancer Mother Hypertension Diabetes Surgical History H/O cardiac catheterization Presence of coronary angioplasty implant and graft (~12/2008) Presence of stent in coronary artery (~12/28/08) Status post insertion of iliac artery stent (~12/2008) Social History Smoking Status: Current every day smoker tobacco type: cigarettes Tobacco: How many years used: 45 alcohol intake: current alcohol intake frequency: a few times a week Alcohol type: beer substance use type: does not use caffeine: Yes Type: coffee Number of servings: 3 what type of physical activity do you participate in: walking frequency: 3-4 times per week ROS ROS Narrative Constitutional: Reports anorexia. Denies fever, chills, and change in weight Eyes: Denies blurry vision, change in eye color, change in vision, discharge from eye(s), double vision, erythema, eye pain, loss of vision or other HEENT: Denies abnormal hearing, dysphagia, ear pain, epistaxis, headache(s), hearing loss, nasal congestion, nasal discharge, post nasal drip, sinus pressure, sore throat or other Cardiovascular: Denies chest pain or palpitations. Denies dyspnea on exertion, orthopnea and paroxysmal nocturnal dyspnea Respiratory/Chest: Denies cough, excessive phlegm production, shortness of breath with exertion and wheezing Gastrointestinal: Reports abdominal pain, nausea and vomiting. Denies coffee ground emesis, constipation, dyspepsia, hematemesis, hematochezia, melena, or other Genitourinary: Denies burning urination, difficulty urinating, dysuria, hematuria, nocturia, urinary frequency, urinary hesitancy, urinary incontinence, urinary urgency or other Musculoskeletal: Denies arthralgias, back pain, joint pain, joint stiffness, joint swelling, myalgias, neck pain or other Neurologic: Denies abnormal gait, abnormal speech, confusion, disequilibrium, dizziness, focal weakness, numbness, paresthesias, seizure-like activity, seizures, syncope, tingling, tremor(s) or other Psychiatric: Denies anxiety, depression, homicidal ideation, suicidal ideation or other Endocrinology: Denies change in body appearance, cold intolerance, excessive sweating, heat intolerance, polydipsia, polyuria or other Hematologic/Lymphatic: Denies anemia, easy bleeding, easy bruising, lymphadenopathy or other Integumentary: Denies rashes Allergic/Immunologic: Denies rhinitis, hives, eczema, or other Vital Signs Vital Signs Vital Signs: 03/16/22 19:51 Temperature 97.1 F L Temperature Source Temporal Pulse Rate 84 Respiratory Rate 18 Blood Pressure 136/64 H Blood Pressure Mean 88 Pulse Ox 98 Oxygen Delivery Method Room Air Weight Weight: 68.039 kg Body Mass Index (BMI) 23.5 Physical Exam Narrative Physical exam: General: Well-nourished, well-developed. Head: Normocephalic, atraumatic, no tenderness Eyes: Vision is grossly intact. EOMI ENT, no trauma, moist mucous membranes, no rhinorrhea Neck: Nontender, full range of motion, no spinal tenderness, deformities, step- off CVS: Regular rate and rhythm. S1-S2 present. Murmur present. No gallop or rub. Respiratory : clear to auscultation bilaterally, chest wall nontender, no wheezing Abdomen: Soft, nontender, nondistended, normal bowel sounds, no masses : Deferred Back: Nontender, no CVA tenderness, no midline spinal tenderness, deformities, step-offs Extremities: Nontender full range of motion, no trauma Skin: Normal color, no trauma, abrasions Neuro: Alert, oriented, cranial nerves II through XII grossly intact. Psychiatry: Normal mood. Normal affect. Not depressed. Not anxious. Results Lab / Micro Data Result Diagrams: 03/16/22 20:29 03/16/22 20:29 Labs: Laboratory Results - last 24 hr 03/16/22 20:29: WBC 30.7 H*, RBC 5.34, Hgb 16.4, Hct 49.9, MCV 93.4, MCH 30.7, MCHC 32.9, RDW Std Deviation 47.8 H, RDW Coeff of [place] 13.9, Plt Count 282, MPV 10.4, Immature Gran % (Auto) 0.700, Neut % (Auto) 84.6 H, Lymph % (Auto) 6.0 L, [place] % (Auto) 8.5, Eos % (Auto) 0.0, Baso % (Auto) 0.2, Absolute Neuts (auto) 25.9 H, Absolute Lymphs (auto) 1.85, Nucleated RBC % 0, Differential Comment SEE COMMENTS, Diff Path Review May foll, Platelet Estimate ADEQUATE, RBC Morphology N CHROM, Anisocytosis 1+, Macrocytosis 1+ 03/16/22 20:29: Sodium 135 L, Potassium 4.2, Chloride 101, Carbon Dioxide 25.0, Anion Gap 9, BUN 19 H, Creatinine 0.96, Estim Creat Clear Calc 62.16, Est GFR (MDRD) Af Amer 98, Est GFR (MDRD) Non-Af 81, BUN/Creatinine Ratio 19.8, Glucose 122 H, Calcium 9.6, Total Bilirubin 1.10 H, Direct Bilirubin 0.31 H, AST 18, ALT 24, Alkaline Phosphatase 113, Total Protein 7.6, Albumin 3.5, Globulin 4.1, L ipase 76 03/16/22 20:35: Urine Color Yellow, Urine Clarity Clear, Urine pH 5.0, Ur Specific [place] 1.025, Urine Protein 30 H, Urine Glucose (UA) Normal, Urine Ketones 50 H, Urine Occult Blood Negative, Urine Nitrite Negative, Urine Bilirubin 1 H, Urine Urobilinogen 1 H, Ur Leukocyte Esterase 25 H, Urine RBC 0-5 SEEN, Urine WBC 0-5 SEEN, Ur Squamous Epith Cells 0-5 SEEN, Urine Bacteria 2+, Fine Granular Casts 5-10 SEEN, Coarse Granular Casts 5-10 SEEN, Urine Mucus 3+ Radiology Impression Abdomen/Pelvis CT 03/16/22 21:16 IMPRESSION: 1. Suspicion of enterocolitis involving multiple small bowel loops and most of the proximal half of the colon.. Cannot exclude a mild component of bowel ischemia, there are high-grade stenoses of the proximal SMA and at the origin of the NATALIE but the visible branches appear patent. 2. Marked diverticulosis distally, no evidence of acute diverticulitis or appendicitis. 3. Severe atherosclerotic and peripheral vascular disease. 4. No evidence of active gallbladder inflammation or prominent distention as previously seen but the fundus is now lobulated in contour with some incomplete septations, nonspecific, and the gallbladder is mildly distended. Electronically Signed: Marika Braga MD at 23:41 EDT , Assessment & Plan Assessment/Plan (1) Gallbladder disease: (2) Enterocolitis: PLAN: Enterocolitis Abdomen/pelvis CT was visualized and independently interpreted. I agree with radiology interpretation. CBC reviewed showed white count of 30.7; with neutrophilia of 84.6% and with lymphopenia of 6%. No bands. Blood culture x2 ordered at the ED. Lactic acid ordered at the ED. We will start patient on Zosyn. Supportive treatment with IV fluids; Bentyl as needed; and IV Zofran as needed. Hold of Imodium at this time. Clear liquid diet ordered. Stool studies; O&P; fecal leukocyte; C. difficile; enteric pathogen panel) ordered. CMP showed elevated direct and total bilirubin. Trend CBC and CMP Gallbladder disease In September [address] was remarkable for gallbladder hydrops. On this presentation abdomen pelvis CT showed lobulated and incomplete septation of the gallbladder. Antibiotics as above. Will consult general surgery. Abnormal urinalysis Urine leukocyte mildly elevated at 25; urine WBC normal; urine bacteria 2+; urine nitrites negative. No urinary symptoms. Monitor Tobacco abuse Counseled Declined nicotine patch Hypertension Blood pressure is not within goal Metoprolol and lisinopril continued. Trend blood pressure and adjust blood pressure medications. DVT prophylaxis Subcutaneous Lovenox ordered. Charges/Coding Visit Charges Inpatient E&M: 02758 Init Hosp L3
[2022-03-17 00:40] LABS: Lactic Acid 1.4 mmol/L (0.4-1.9)
[2022-03-17] MEDS: Lisinopril 10 MG Tablet PO ×3 (02:19→20:56)
[2022-03-17] MEDS: Ondansetron 4 MG/2 ML Vial IV (02:19)
[2022-03-17] MEDS: Lactated Ringers 1,000 ML 75 ML IV ×2 (02:19→16:00)
[2022-03-17] MEDS: Acetaminophen 325 MG Tablet 650 MG PO (02:20)
[2022-03-17] MEDS: 0.9% Saline Lock 10 ML Syringe IV (02:20)
[2022-03-17] MEDS: Dicyclomine 10 MG Capsule PO ×2 (03:36→13:38)
[2022-03-17 05:38] LABS: Absolute Lymphocyte Count 2.05 X10^3/uL (0.83-4.51); Absolute Neutrophil Count 17.8 X10^3/uL (2.0-7.7); Basophil# 0.04 X10^3/uL; Basophil% 0.2 % (0-1); Hematocrit 43.7 % (40-54); Hemoglobin 14.1 g/dL (13.0-16.5); Lymphocyte # 2.05 X10^3/ul (0.83-4.51); Lymphocyte % 9.6 % (19-41); Mean Corp Hgb Conc 32.3 g/dL (32-36); Mean Corpuscular Hgb 30.3 pg (27.0-32.0); Mean Corpuscular Volume 93.8 fL (80-94); Mean Platelet Vol. 10.1 fl (6.2-12.0); Monocyte# 1.39 X10^3/uL; Monocyte% 6.5 % (0-10); NRBC Flagged by Analyzer 0 % (0-5); Neutrophil # 17.83 X10^3/uL (2.7-7.7); Neutrophil % 83.1 % (47-70); Platelet Count 230 K/mm3 (150-450); RBC Distribution Width CV 13.9 % (11.6-14.6); RBC Distribution Width SD 47.4 fl (35.1-43.9); Red Blood Count 4.66 M/mm3 (4.6-6.2); White Blood Count 21.4 K/mm3 (4.4-11.0)
[2022-03-17 06:00] LABS: ALB/GLOB Ratio 0.8 RATIO (0.9-2.4); AST(SGOT) 17 U/L (15-37); Alanine Aminotransfer ALT/SGPT 22 U/L (16-61); Alkaline Phosphatase 96 U/L (45-117); Anion Gap 10 (5-15); BUN 16 mg/dL (7-18); BUN/Creat Ratio 25.3 RATIO (10-20); Calcium,Total 8.9 mg/dL (8.5-10.1); Chloride 104 mmol/L (98-107); Creatinine, Serum 0.63 mg/dL (0.70-1.30); EST Glomerular Filtration Rate 131 mL/min (>60); Est Glom Filt Rate - Afr Amer 159 mL/min (>60); Globulin 3.7 g/dL (2.2-4.2); Glucose 133 mg/dL (74-106); Potassium 3.7 mmol/L (3.5-5.1); Protein, Total 6.7 g/dL (6.4-8.2); Sodium Level 134 mmol/L (136-145)
--- NOTE | 2022-03-17 07:07 | CON.PCM.SX_ITS ---
Assessment & Plan Assessment/Plan (1) Enterocolitis: PLAN: The patient was seen and I reviewed his CT scan. There was concern for possible ischemia versus enterocolitis of the small bowel and ascending colon. The patient has extensive vascular disease of the takeoffs of his SMA and ICA. Patient may have transient ischemia but at this time the patient's abdominal exam is very benign he is soft and nontender. He has been started on a clear liquid diet. I would continue IV hydration and clear liquids today and if his white count continues to fall tomorrow we may advance his diet and possibly discharge. His white count is already coming down and his lactate has returned to normal. No surgical plan at this time. Patient also has a remote history of gallbladder disease but at this time the CT scan did not show any scanning around his gallbladder. Patient has no pain in the right upper quadrant. He has not had any nausea or vomiting overnight. C. difficile is negative. Ron Larios MD Pager: [facility] [address] [place] [address], [address] [place] [address] Office: HPI Consult Data Date of Consult: 03/17/22 HPI Narrative HPI Narrative: JOSEMANUEL GLORIA, is a 76 M who presents to the emergency room with nausea and vomiting and diarrhea. Patient said that he was having lower abdominal cramping yesterday and that is what made him come to the emergency room. Currently he is not having any abdominal pain. He reports no nausea or vomiting overnight. He did have a few bouts of diarrhea. This has happened to him in the past. [facility] Medical History Atherosclerosis of [place] artery of extremity with intermittent claudication Atherosclerotic heart disease of [place] coronary artery without angina pectoris Bilateral carotid artery disease Bilateral carotid bruits CAD (coronary artery disease) Cardiac murmur Cerebrovascular disease COPD (chronic obstructive pulmonary disease) Essential hypertension History of myocardial infarction History of stress test Hydrops of gallbladder Mixed hyperlipidemia Old myocardial infarction Peripheral vascular angioplasty status Home Medications aspirin 81 mg tablet,delayed release 81 mg PO DAILY 11/08/20 [History Last Taken 03/16/22] atorvastatin 80 mg tablet 80 mg PO QHS #90 tab 07/10/21 [Rx Last Taken 03/15/22] lisinopril 10 mg tablet 10 mg PO BID #180 tab 07/25/21 [Rx Last Taken 03/16/22 08:00] loperamide 2 mg PO Q4H PRN PRN MDD 16mg 09/30/21 [History Last Taken 09/30/21] metoprolol tartrate 50 mg tablet 25 mg PO BID #90 tab 11/02/21 [Rx Last Taken 03/16/22 0800] ezetimibe 10 mg tablet 10 mg PO DAILY #90 tab 01/31/22 [Rx Last Taken 03/16/22] prasugrel 10 mg tablet 10 mg PO DAILY #90 tab 03/14/22 [Rx Last Taken 03/16/22] Allergy/AdvReac Type Severity Reaction Status Date / Time clopidogrel [From Plavix] Allergy Intermediate Hives Verified 03/16/22 19:53 Family History Father Colon cancer Mother Hypertension Diabetes Surgical History H/O cardiac catheterization Presence of coronary angioplasty implant and graft (~12/2008) Presence of stent in coronary artery (~12/28/08) Status post insertion of iliac artery stent (~12/2008) Social History Smoking Status: Current every day smoker tobacco type: cigarettes Tobacco: How many years used: 45 alcohol intake: current alcohol intake frequency: a few times a week Alcohol type: beer substance use type: does not use caffeine: Yes Type: coffee Number of servings: 3 what type of physical activity do you participate in: walking frequency: 3-4 times per week ROS Constitutional Constitutional: Reports anorexia; Denies chills or fever(s) Eyes Eyes: Denies blurry vision ENT HEENT: Denies abnormal hearing Cardiovascular Cardiovascular: Denies chest pain Respiratory/Chest Respiratory/Chest: Denies cough or dyspnea Gastrointestinal Gastrointestinal: Reports abdominal pain, diarrhea, nausea and vomiting Genitourinary Genitourinary: Denies difficulty urinating Musculoskeletal Musculoskeletal: Denies difficulty walking Integumentary Integumentary: Denies new lesions Neurologic Neurologic: Denies abnormal gait Psychiatric Psychiatric: Denies anxiety Endocrine Endocrinology: Denies flushing Hematologic/Lymphatic Hematologic/Lymphatic: Denies easy bruising Physical Exam Const alert and oriented x3 HEENT normocephalic Eyes PERRL Neck full ROM Chest inspection of chest normal Resp normal respiratory effort and no retractions Cardio Rate: regular rate Rhythm: regular rhythm GI soft to palpation, non-tender and non-distended Back/Spine no CVA tenderness Extremity General Extremity: normal exam except as noted Skin no rashes or lesions noted General Skin Exam: no breakdown Neuro CN's II-XII intact bilaterally Psych mental status grossly normal Lab / Micro Data Result Diagrams: 03/17/22 05:26 03/17/22 05:26 Labs: Laboratory Results - last 24 hr 03/16/22 20:29: WBC 30.7 H*, RBC 5.34, Hgb 16.4, Hct 49.9, MCV 93.4, MCH 30.7, MCHC 32.9, RDW Std Deviation 47.8 H, RDW Coeff of [place] 13.9, Plt Count 282, MPV 10.4, Immature Gran % (Auto) 0.700, Neut % (Auto) 84.6 H, Lymph % (Auto) 6.0 L, [place] % (Auto) 8.5, Eos % (Auto) 0.0, Baso % (Auto) 0.2, Absolute Neuts (auto) 25.9 H, Absolute Lymphs (auto) 1.85, Nucleated RBC % 0, Differential Comment SEE COMMENTS, Diff Path Review May foll, Platelet Estimate ADEQUATE, RBC Morphology N CHROM, Anisocytosis 1+, Macrocytosis 1+ 03/16/22 20:29: Sodium 135 L, Potassium 4.2, Chloride 101, Carbon Dioxide 25.0, Anion Gap 9, BUN 19 H, Creatinine 0.96, Estim Creat Clear Calc 62.16, Est GFR (MDRD) Af Amer 98, Est GFR (MDRD) Non-Af 81, BUN/Creatinine Ratio 19.8, Glucose 122 H, Calcium 9.6, Total Bilirubin 1.10 H, Direct Bilirubin 0.31 H, AST 18, ALT 24, Alkaline Phosphatase 113, Total Protein 7.6, Albumin 3.5, Globulin 4.1, Lipase 76 03/16/22 20:35: Urine Color Yellow, Urine Clarity Clear, Urine pH 5.0, Ur Specific [place] 1.025, Urine Protein 30 H, Urine Glucose (UA) Normal, Urine Ketones 50 H, Urine Occult Blood Negative, Urine Nitrite Negative, Urine Bilirubin 1 H, Urine Urobilinogen 1 H, Ur Leukocyte Esterase 25 H, Urine RBC 0-5 SEEN, Urine WBC 0-5 SEEN, Ur Squamous Epith Cells 0-5 SEEN, Urine Bacteria 2+, Fine Granular Casts 5-10 SEEN, Coarse Granular Casts 5-10 SEEN, Urine Mucus 3+ 03/17/22 00:05: Lactic Acid 1.4 03/17/22 05:26: WBC 21.4 H, RBC 4.66, Hgb 14.1, Hct 43.7, MCV 93.8, MCH 30.3, MCHC 32.3, RDW Std Deviation 47.4 H, RDW Coeff of [place] 13.9, Plt Count 230, MPV 10.1, Immature Gran % (Auto) 0.600, Neut % (Auto) 83.1 H, Lymph % (Auto) 9.6 L, Story % (Auto) 6.5, Eos % (Auto) 0.0, Baso % (Auto) 0.2, Absolute Neuts (auto) 17.8 H, Absolute Lymphs (auto) 2.05, Nucleated RBC % 0 03/17/22 05:26: Sodium 134 L, Potassium 3.7, Chloride 104, Carbon Dioxide 20.0 L , Anion Gap 10, BUN 16, Creatinine 0.63 L, Estim Creat Clear Calc 59.40, Est GFR (MDRD) Af Amer 159, Est GFR (MDRD) Non-Af 131, BUN/Creatinine Ratio 25.3 H, Glu cose 133 H, Calcium 8.9, Total Bilirubin 1.00, AST 17, ALT 22, Alkaline Phosphatase 96, Total Protein 6.7, Albumin 3.0 L, Globulin 3.7, Albumin/Globulin Ratio 0.8 L Micro: Microbiology 03/17/22 00:45 Stool Stool Lactoferrin - Final 03/17/22 00:45 Stool C. difficile DNA Amplification - Final 03/17/22 02:45 Stool Stool Occult Blood (TIMI) - Final Occult Blood Positive Radiology Impression Abdomen/Pelvis CT 03/16/22 21:16 IMPRESSION: 1. Suspicion of enterocolitis involving multiple small bowel loops and most of the proximal half of the colon.. Cannot exclude a mild component of bowel ischemia, there are high-grade stenoses of the proximal SMA and at the origin of the NATALIE but the visible branches appear patent. 2. Marked diverticulosis distally, no evidence of acute diverticulitis or appendicitis. 3. Severe atherosclerotic and peripheral vascular disease. 4. No evidence of active gallbladder inflammation or prominent distention as previously seen but the fundus is now lobulated in contour with some incomplete septations, nonspecific, and the gallbladder is mildly distended. Electronically Signed: Marika Braga MD at 23:41 EDT ,
--- NOTE | 2022-03-17 09:05 | CASEMGMT ---
PREMA JOSUE Assessment: Face to Face with pt for initial transition planning/care coordination assessment. PREMA JOSUE introduced self and role at [facility], pt voices understanding and consents to assessment. Pt is A/O x4 and answers all questions appropriately at this time. Pt sitting up in bed on RA in no distress. Care providers, pharmacy, and demographics verified/updated. Admitting Dx: enterocolitis, diarrhea, gallbladder disease PCP:[facility] Specialists:Bettina, vascular; Moodislori, cardio Preferred Pharmacy: [facility] Insurance: Deyvi TAM, [facility] Community Plan Prescription Benefit: yes LW/HPOA: Pt states he has a LW/DPOA and his DPOA is his dtr Katy Tobin. He is aware this is not on file at [facility] and he may bring in to be scanned into his chart. LNOK: Katy Tobin, dtr Living Arrangements: Pt lives alone in an apt. Pt reports there are 6 steps to enter with a rail then his apt is on one level. Pt reports he is I in ADL's and denies concerns at home. Transportation: Pt does not drive. States his dtr provides transportation. Pt denies concerns with this. DME/HHC/SNF: Pt has no DME in the home. Denies hx of SNF stays or previous HHC. Pt states no concerns with going home at time of dc. Pt states no further concerns/needs. CM to follow. Advised pt to ask CM if any further question/concerns/needs arise, voices understanding. Pt Goal: Home Plan: Home
[2022-03-17] MEDS: Metoprolol Tartrate 25 MG Tablet PO ×2 (09:36→20:56)
[2022-03-17] MEDS: Ezetimibe 10 MG Tablet PO (09:36)
[2022-03-17] MEDS: Aspirin E.C. 81 MG Tablet PO (09:36)
--- NOTE | 2022-03-17 09:38 | PN.HOSP_ITS ---
Documented by User: Dr. Tiny Soliz DO 03/17/22 12:52 Objective Data Objective Data Vital Signs: Vital Signs Temp Pulse Resp BP Pulse Ox 97.9 F 72 16 148/65 H 99 03/17/22 09:31 03/17/22 09:36 03/17/22 09:31 03/17/22 09:36 03/17/22 09:31 Oxygen Delivery Method Room Air Weight: 65.8 kg Body Mass Index (BMI) 22.7 Intake & Output: Intake and Output for Last 24 Hours 03/15/22 03/16/22 03/17/22 23:59 23:59 23:59 Intake Total 1210 / 1210 Balance 1210 / 1210 Lab / Micro Data Result Diagrams: 03/17/22 05:26 03/17/22 05:26 Labs: Laboratory Results - last 24 hr 03/16/22 20:29: WBC 30.7 H*, RBC 5.34, Hgb 16.4, Hct 49.9, MCV 93.4, MCH 30.7, MCHC 32.9, RDW Std Deviation 47.8 H, RDW Coeff of Arnoldo 13.9, Plt Count 282, MPV 10.4, Immature Gran % (Auto) 0.700, Neut % (Auto) 84.6 H, Lymph % (Auto) 6.0 L, [place] % (Auto) 8.5, Eos % (Auto) 0.0, Baso % (Auto) 0.2, Absolute Neuts (auto) 25.9 H, Absolute Lymphs (auto) 1.85, Nucleated RBC % 0, Differential Comment SEE COMMENTS, Diff Path Review May foll, Platelet Estimate ADEQUATE, RBC Morphology N CHROM, Anisocytosis 1+, Macrocytosis 1+ 03/16/22 20:29: Sodium 135 L, Potassium 4.2, Chloride 101, Carbon Dioxide 25.0, Anion Gap 9, BUN 19 H, Creatinine 0.96, Estim Creat Clear Calc 62.16, Est GFR (MDRD) Af Amer 98, Est GFR (MDRD) Non-Af 81, BUN/Creatinine Ratio 19.8, Glucose 122 H, Calcium 9.6, Total Bilirubin 1.10 H, Direct Bilirubin 0.31 H, AST 18, ALT 24, Alkaline Phosphatase 113, Total Protein 7.6, Albumin 3.5, Globulin 4.1, Lipase 76 03/16/22 20:35: Urine Color Yellow, Urine Clarity Clear, Urine pH 5.0, Ur Specific [place] 1.025, Urine Protein 30 H, Urine Glucose (UA) Normal, Urine Ketones 50 H, Urine Occult Blood Negative, Urine Nitrite Negative, Urine Bilirubin 1 H, Urine Urobilinogen 1 H, Ur Leukocyte Esterase 25 H, Urine RBC 0-5 SEEN, Urine WBC 0-5 SEEN, Ur Squamous Epith Cells 0-5 SEEN, Urine Bacteria 2+, Fine Granular Casts 5-10 SEEN, Coarse Granular Casts 5-10 SEEN, Urine Mucus 3+ 03/17/22 00:05: Lactic Acid 1.4 03/17/22 05:26: WBC 21.4 H, RBC 4.66, Hgb 14.1, Hct 43.7, MCV 93.8, MCH 30.3, MCHC 32.3, RDW Std Deviation 47.4 H, RDW Coeff of Arnoldo 13.9, Plt Count 230, MPV 10.1, Immature Gran % (Auto) 0.600, Neut % (Auto) 83.1 H, Lymph % (Auto) 9.6 L, [place] % (Auto) 6.5, Eos % (Auto) 0.0, Baso % (Auto) 0.2, Absolute Neuts (auto) 17.8 H, Absolute Lymphs (auto) 2.05, Nucleated RBC % 0 03/17/22 05:26: Sodium 134 L, Potassium 3.7, Chloride 104, Carbon Dioxide 20.0 L , Anion Gap 10, BUN 16, Creatinine 0.63 L, Estim Creat Clear Calc 59.40, Est GFR (MDRD) Af Amer 159, Est GFR (MDRD) Non-Af 131, BUN/Creatinine Ratio 25.3 H, Glucose 133 H, Calcium 8.9, Total Bilirubin 1.00, AST 17, ALT 22, Alkaline Phosphatase 96, Total Protein 6.7, Albumin 3.0 L, Globulin 3.7, Albumin/Globulin Ratio 0.8 L Micro: Microbiology 03/17/22 00:45 Stool Stool Lactoferrin - Final 03/17/22 00:45 Stool Enteric Bacteriology - Final 03/17/22 00:45 Stool C. difficile DNA Amplification - Final 03/17/22 02:45 Stool Stool Occult Blood (ITMI) - Final Occult Blood Positive Radiography Diagnostic Testing: Radiology Impression Abdomen/Pelvis CT 03/16/22 21:16 IMPRESSION: 1. Suspicion of enterocolitis involving multiple small bowel loops and most of the proximal half of the colon.. Cannot exclude a mild component of bowel ischemia, there are high-grade stenoses of the proximal SMA and at the origin of the NATALIE but the visible branches appear patent. 2. Marked diverticulosis distally, no evidence of acute diverticulitis or appendicitis. 3. Severe atherosclerotic and peripheral vascular disease. 4. No evidence of active gallbladder inflammation or prominent distention as previously seen but the fundus is now lobulated in contour with some incomplete septations, nonspecific, and the gallbladder is mildly distended. Electronically Signed: Marika Braga MD at 23:41 EDT , Assessment & Plan Assessment/Plan (1) Enterocolitis: (2) Gallbladder disease: (3) Leukocytosis: (4) Dehydration: (5) Abdominal pain, lower: (6) Cardiac murmur: PLAN: Mr. Tobin was admitted early this morning after presenting to the emergency department with cramping abdominal pain that was worsening throughout the day. The pain was nonradiating in the periumbilical area and started 4 days prior to presentation. He had some nausea and emesis with 3-4 episodes of vomiting total. He also been experiencing 2-3 episodes of diarrhea per day. He has had no blood in his stool or emesis. He has had no fever or chills. He had a similar illness in September 2021 that required a 3 to 4-day hospital stay. He was evidently diagnosed with hydrops of the gallbladder at that time but had follow-up ultrasound of the gallbladder that showed resolution of the hydrops. He had a marked leukocytosis of greater than 30,000 on presentation. His white count has reduced to 21,[address] done in the emergency department showed enterocolitis and signs of severe vascular disease. The patient does follow with Dr. Dunbar for severe vascular disease at baseline. On presentation he had no peritoneal signs and his abdomen was overall fairly benign given these findings concern for ischemic bowel is low. He was admitted to the medical floor and started on IV antibiotics and general surgery was co nsulted. It is noted that the patient may have had transient ischemia but at the time of general surgery's evaluation his exam was benign, soft, and nontender. He was started on a clear liquid diet and IV fluids were continued to maintain hydration. It was felt by general surgery that if his white count continues to improve that his diet may be able to be advanced and we could potentially discharge him within the next 24 hours. C. difficile was negative. Documented by User: NITA VAZQUEZ 03/17/22 12:06 Subjective Subjective Patient reports much improvement in abdominal pain. Patient states his pain is 3 out of 10 and localized to the epigastric area. Patient is sitting comfortably in the bed and reports nausea but no emesis. Patient states he continues to have diarrhea, but he has not noted any blood in his stool. Patient otherwise denies fever, chills chest pain, shortness of breath, increased abdominal pain specifically after eating, dysuria, dizziness, or weakness. Objective Data Lab / Micro Data Attestation: I reviewed the patient's lab results. Result Diagrams: 03/17/22 05:26 03/17/22 05:26 Physical Exam Const alert, oriented x3 and no apparent distress Exam Limitations: no limitations HEENT moist oral mucous membranes Eyes PERRL and EOMs intact bilaterally Neck no lymphadenopathy Carotids: bruit Positive for bilateral Resp normal respiratory effort and clear to auscultation bilaterally Cardio regular rate, regular rhythm and S1 normal heart sound Cardio Narrative: S2 muffled. Heart Sounds: murmur systolic right sternal border to the left axilla and other Peripheral Pulses: pulses 2+ throughout GI normal to inspection, nondistended, normoactive bowel sounds, soft to palpation and non-tender Palpation: Negative for guarding Extremity normal to inspection and no clubbing, cyanosis or edema Skin no rashes or lesions noted Neuro oriented x3 and moves all extremities Sensorium / Orientation: awake and alert Psych affect normal Assessment & Plan Assessment/Plan (1) Enterocolitis: (2) Gallbladder disease: (3) Peripheral vascular disease: (4) Essential hypertension: (5) Mixed hyperlipidemia: (6) Tobacco abuse: PLAN: Enterocolitis * CT demonstrated enterocolitis of small bowel and ascending colon. High-grade stenoses of SMA and NATALIE. * Patient evaluated by Dr. Larios, no surgical plan at this time. * BC x2 pending * Stool negative for C. Diff and enteric pathogens * Stool positive for WBC lactoferrin, consistent with bowel inflammation * Stool ova and parasite studies pending * Continue broad spectrum Zosyn 3.375 gm Q8H * Patient tolerating clear liquid diet. Per surgery, advance diet if WBC count continues to fall tomorrow. * Ensure clear 120 ml 4X/day * Guaiac stool positive for occult blood. Presume this is related to enteric inflammation. Hemoglobin 14.1, continue to trend. * Maintain hydration with lactated ringers at 75 ml/hr * Pain control with acetaminophen 650 mg Q6H prn * Pain control with dicyclomine 10 mg Q6H prn * Antiemetic ondansetron 4 mg IV Q8H prn Leukocytosis * WBC from 30.7--> 21.4 * Slight left shift with 84.6% --> 83.1% neutrophils * Trend CBCD Gallbladder disease * CT reveals lobulated gallbladder fundus with mild distention; however, gallbladder hydrops previously noted on U/S in September 2021, resolved. * No evidence of gallbladder involvement on assessment, RUQ nontender. * Alkaline phosphatase 96; bilirubin 1.0 * Trend CMP * Continue to monitor pain Atherosclerotic vascular disease * Continue prasugrel 10 mg PO daily * Continue aspirin 81 mg PO daily * Outpatient follow-up with Dr. Dunbar and Dr. Baxter Hypertension * Continue lisinopril 10 mg BID * Continue metoprolol 25 mg BID * Per most recent cardiology visit, this is being monitored for potential for medication adjustment. Continue to monitor blood pressures as patient stabilizes to determine baseline and consider adjustment prior to discharge. Hyperlipidemia * Continue ezetimibe 10 mg PO daily * Continue atorvastatin 80 mg PO QHS Tobacco abuse * Patient counseled in smoking cessation. * Patient states he currently does not feel any nicotine cravings and denies nicotine patch. * Patient states he is interested in quitting smoking. DVT Prophylaxis * SCDs GI Prophylaxis * Pantoprazole 40 mg Q12H
[2022-03-17] MEDS: Ensure Clear 120 ML Liquid PO (20:55)
[2022-03-17] MEDS: Atorvastatin Calcium 80 MG Tablet PO (20:56)
[2022-03-18 03:00] VITALS: BP 120/79; PULSE 68; RESP 18; TEMP 36.8; O2SAT 92
[2022-03-18] MEDS: Lactated Ringers 1,000 ML 75 ML IV (05:04)
[2022-03-18 06:22] LABS: Absolute Lymphocyte Count 1.98 X10^3/uL (0.83-4.51); Absolute Neutrophil Count 12.6 X10^3/uL (2.0-7.7); Basophil# 0.05 X10^3/uL; Basophil% 0.3 % (0-1); Eosinophil# 0.11 X10^3/uL; Eosinophils% 0.7 % (0-5); Hematocrit 39.5 % (40-54); Hemoglobin 12.8 g/dL (13.0-16.5); Lymphocyte # 1.98 X10^3/ul (0.83-4.51); Lymphocyte % 12.3 % (19-41); Mean Corp Hgb Conc 32.4 g/dL (32-36); Mean Corpuscular Hgb 30.3 pg (27.0-32.0); Mean Corpuscular Volume 93.6 fL (80-94); Mean Platelet Vol. 10.6 fl (6.2-12.0); Monocyte# 1.27 X10^3/uL; Monocyte% 7.9 % (0-10); NRBC Flagged by Analyzer 0 % (0-5); Neutrophil # 12.56 X10^3/uL (2.7-7.7); Neutrophil % 78.4 % (47-70); Platelet Count 212 K/mm3 (150-450); RBC Distribution Width CV 13.9 % (11.6-14.6); RBC Distribution Width SD 47.5 fl (35.1-43.9); Red Blood Count 4.22 M/mm3 (4.6-6.2)
[2022-03-18 06:52] LABS: ALB/GLOB Ratio 0.8 RATIO (0.9-2.4); AST(SGOT) 19 U/L (15-37); Alanine Aminotransfer ALT/SGPT 18 U/L (16-61); Albumin, Serum 2.5 g/dL (3.2-5.0); Alkaline Phosphatase 79 U/L (45-117); Anion Gap 5 (5-15); BUN 9 mg/dL (7-18); BUN/Creat Ratio 13.2 RATIO (10-20); Calcium,Total 8.8 mg/dL (8.5-10.1); Chloride 107 mmol/L (98-107); Creatinine, Serum 0.68 mg/dL (0.70-1.30); EST Glomerular Filtration Rate 120 mL/min (>60); Est Glom Filt Rate - Afr Amer 146 mL/min (>60); Globulin 3.3 g/dL (2.2-4.2); Glucose 94 mg/dL (74-106); Potassium 3.6 mmol/L (3.5-5.1); Protein, Total 5.8 g/dL (6.4-8.2); Sodium Level 137 mmol/L (136-145)
--- NOTE | 2022-03-18 06:54 | PCM.PN.SRG ---
Subjective Subjective Patient tolerated clears with no abdominal pain or nausea or vomiting. Patient is passing flatus and had bowel movements. Objective Data Objective Data Vital Signs: Vital Signs Temp Pulse Resp BP Pulse Ox 98.2 F 68 18 120/79 92 03/18/22 03:00 03/18/22 03:00 03/18/22 03:00 03/18/22 03:00 03/18/22 03:00 Oxygen Delivery Method Room Air Weight: 145 lb 1.027 oz Body Mass Index (BMI) 22.7 Intake & Output: Intake and Output for Last 24 Hours 03/16/22 03/17/22 03/18/22 23:59 23:59 23:59 Intake Total 3699.75 / 3939.75 1313.75 / 1313.75 Balance 3699.75 / 3939.75 1313.75 / 1313.75 Lab / Micro Data Result Diagrams: 03/18/22 05:39 03/18/22 05:39 Labs: Laboratory Results - last 24 hr 03/18/22 05:39: WBC 16.0 H, RBC 4.22 L, Hgb 12.8 L, Hct 39.5 L, MCV 93.6, MCH 30.3, MCHC 32.4, RDW Std Deviation 47.5 H, RDW Coeff of Arnoldo 13.9, Plt Count 212, MPV 10.6, Immature Gran % (Auto) 0.400, Neut % (Auto) 78.4 H, Lymph % (Auto) 12.3 L, [place] % (Auto) 7.9, Eos % (Auto) 0.7, Baso % (Auto) 0.3, Absolute Neuts (auto) 12.6 H, Absolute Lymphs (auto) 1.98, Nucleated RBC % 0 03/18/22 05:39: Sodium 137, Potassium 3.6, Chloride 107, Carbon Dioxide 25.0, Anion Gap 5, BUN 9, Creatinine 0.68 L, Estim Creat Clear Calc 59.40, Est GFR (MDRD) Af Amer 146, Est GFR (MDRD) Non-Af 120, BUN/Creatinine Ratio 13.2, Glucose 94, Calcium 8.8, Total Bilirubin 0.90, AST 19, ALT 18, Alkaline Phosphatase 79, Total Protein 5.8 L, Albumin 2.5 L, Globulin 3.3, Albumin/Globulin Ratio 0.8 L Micro: Microbiology 03/17/22 00:45 Stool Stool Lactoferrin - Final 03/17/22 00:45 Stool Enteric Bacteriology - Final 03/17/22 00:45 Stool C. difficile DNA Amplification - Final 03/17/22 02:45 Stool Stool Occult Blood (TIMI) - Final Occult Blood Positive Physical Exam Const oriented x3 and no apparent distress Resp normal respiratory effort Cardio regular rate and regular rhythm GI soft to palpation and non-tender Inspection: Negative for abdominal distention Assessment & Plan Assessment/Plan (1) Enterocolitis: PLAN: Patient reports doing well today. He has no nausea or vomiting and tolerated clears. He is passing flatus. I will advance to regular diet and if he tolerates this he may be discharged home. Ron Larios MD Pager: [facility] [address] [place] [address], [address] [place] [address] Office:
[2022-03-18 07:53] VITALS: BP 131/89; PULSE 58; RESP 16; TEMP 36.8; O2SAT 97
[2022-03-18] MEDS: Aspirin E.C. 81 MG Tablet PO (08:00)
--- NOTE | 2022-03-18 09:31 | DS.PCM_ITS ---
Providers Date of Admission: 03/16/22 Date of Discharge: 03/18/22 Primary Care Physician: Dr. Sherrie Song MD Consultations 03/17/22 01:38 Consult: General Surgery Routine Consulting Provider: Ron Larios Reason for Consult: Gallbladder disease; Enterocolitis EMERGENT Consult: No MD Notified: Yes Date Notified: 03/17/22 Time Notified: 06:40 Method of Notification: Verbal Reason For Visit: ENTEROCOLITIS; DIARRHEA;GALLBADDER DISEASE Diagnosis Discharge Diagnosis (1) Enterocolitis: Status: Acute Code(s): K52.9 - Noninfective gastroenteritis and colitis, unspecified Medications at Discharge Home Medications aspirin 81 mg tablet,delayed release 81 mg PO DAILY 11/08/20 atorvastatin 80 mg tablet 80 mg PO QHS #90 tab 07/10/21 lisinopril 10 mg tablet 10 mg PO BID #180 tab 07/25/21 loperamide 2 mg PO Q4H PRN PRN MDD 16mg 09/30/21 metoprolol tartrate 50 mg tablet 25 mg PO BID #90 tab 11/02/21 ezetimibe 10 mg tablet 10 mg PO DAILY #90 tab 01/31/22 prasugrel 10 mg tablet 10 mg PO DAILY #90 tab 03/14/22 ciprofloxacin HCl [Cipro] 500 mg PO BID #10 tab 03/18/22 metronidazole 500 mg PO Q8H #15 tab 03/18/22 Hospital Course Operations None Procedures None Summary of Care Provided Minutes Spent on Discharge: 36 Hospital Course: Mr. Tobin is a 76-year-old white male who has a marked history of vascular disease that presented to the emergency department at [facility] on 03/16/2022 with a chief complaint of abdominal pain. He indicated on a dmission it was nonradiating periumbilical pain that started about 4 days prior to presentation. He indicated nothing really made it better or worse. He had some associated nausea with some vomiting and diarrhea. His p.o. intake has been poor. At admission he indicated he had been having 2-3 episodes of diarrhea a day and 3-4 total episodes of emesis but had no blood in his stool or emesis. On admission his vital signs were stable however he had a elevated white count at 30.7 with a left shift the rest of his CBC was unremarkable. His chemistry panel was overall unimpressive other than a mild hyperbilirubinemia at 1.1 which resolved prior to discharge. His liver functions were normal. His UA was not consistent with infection. With his pain and diarrhea a CT of his abdomen pelvis was done and showed enterocolitis involving multiple loops of small bowel in the most proximal half of the colon with high-grade stenosis of the proximal SMA at the origin of the NATALIE but visible branches were patent, marked diverticulosis without any diverticulitis or appendicitis, severe atherosclerotic disease and peripheral vascular disease and no evidence of gallbladder inflammation. He was admitted to the medical floor and placed on IV antibiotics, IV fluids, and medication for pain management. General surgery was consulted. General surgery indicated that there was a concern for possible ischemia versus enterocolitis of the small bowel loop and ascending colon given the fact that the patient has significant vascular disease. It is suspected that the patient may have had transient ischemia that resulted in the above findings however his abdominal exam resolved quickly and was very benign soft and nontender with resolution of his diarrhea and nausea and vomiting at the time of general surgery's evaluation on the morning of 03/17/2022. He was placed on a clear liquid diet at that time and we did continue IV hydration. He did extremely well overall. His C. difficile was negative. Lactoferrin was elevated. Enteric panel was negative. Ova and parasites were pending at [facility]. His stool was positive for guaiac however this is expected given his severe inflammation in her colitis and his hemoglobin is remained stable throughout his hospital course. His white count improved from 30,000 on admission to 16,000 at discharge. His abdomen remained benign and he was sta rted on a regular diet on the a.m. of 03/18/2022 and did extremely well. General surgery felt he was safe to go home and we sent a prescription for Cipro and Flagyl to continue for another 5 days total. Prescription was sent to his local pharmacy. He was discharged home in stable condition. We strongly encouraged tobacco cessation as he does have severe diffuse vascular disease and follows with Dr. Dunbar as an outpatient. We also encouraged good hydration at baseline discussing with him that dehydration could potentially make his symptoms worse given his severe stenosis intra-abdominally. He is to follow-up with his primary care physician within the next 2 weeks. Discharge diagnoses: Enterocolitis secondary to suspected ischemic event Leukocytosis-improving Gallbladder disease Peripheral vascular disease-severe Hypertension Hyperlipidemia CAD Carotid artery stenosis Cardiac murmur Tobacco abuse Physical Exam Const alert, oriented x3, no apparent distress, average body habitus, no limitations, healthy appearing and well nourished Constitutional Narrative: Older white male sitting up in bed, has just finished breakfast, appears comfortable nontoxic, very pleasant General Appearance: cooperative, comfortable, well kempt and well developed Orientation / Consciousness: awake Exam Limitations: no limitations HEENT normocephalic, head/scalp atraumatic, hearing grossly normal bilaterally and moist oral mucous membranes HEENT Narrative: Mallampati 2, no thrush Eyes PERRL, EOMs intact bilaterally and conjunctivae normal Eyes Narrative: No scleral icterus Neck no lymphadenopathy, supple, no JVD and No no carotid bruits Neck Narrative: Right carotid bruit, cardiac murmur that radiates to bilateral carotids Resp normal respiratory effort, no retractions, no use of accessory muscles and clear to auscultation bilaterally Resp Narrative: Diffusely diminished but clear Auscultation: Negative for crackles, rales, rhonchi or wheezes Cardio regular rate, regular rhythm, S1 normal heart sound, S2 normal heart sound, no rub, no gallops, no clicks and no JVD; Negative for no murmurs Cardio Narrative: 3 out of 6 systolic murmur S2 is slightly soft GI normal to inspection, nondistended, normoactive bowel sounds, soft to palpation, non-tender and non-distended; Negative for hepatosplenomegaly Extremity no clubbing, cyanosis or edema Extremity Narrative: Pedal pulses are 1+ Skin no rashes or lesions noted, no wounds, skin turgor normal and no jaundice Neuro oriented x3, CN's II-XII intact bilaterally, moves all extremities and no focal motor deficits Sensorium / Orientation: awake, alert, oriented to person, oriented to place and oriented to time Speech: speech normal Psych affect normal Weight / BMI Weight Weight: 65.8 kg Body Mass Index (BMI) 22.7 ABG / Lab / Microbiology Data Result Diagrams: 03/18/22 05:39 03/18/22 05:39 Laboratory: Laboratory Results - last 24 hr 03/18/22 05:39: WBC 16.0 H, RBC 4.22 L, Hgb 12.8 L, Hct 39.5 L, MCV 93.6, MCH 30.3, MCHC 32.4, RDW Std Deviation 47.5 H, RDW Coeff of Arnoldo 13.9, Plt Count 212, MPV 10.6, Immature Gran % (Auto) 0.400, Neut % (Auto) 78.4 H, Lymph % (Auto) 12.3 L, [place] % (Auto) 7.9, Eos % (Auto) 0.7, Baso % (Auto) 0.3, Absolute Neuts (auto) 12.6 H, Absolute Lymphs (auto) 1.98, Nucleated RBC % 0 03/18/22 05:39: Sodium 137, Potassium 3.6, Chloride 107, Carbon Dioxide 25.0, Anion Gap 5, BUN 9, Creatinine 0.68 L, Estim Creat Clear Calc 59.40, Est GFR (MDRD) Af Amer 146, Est GFR (MDRD) Non-Af 120, BUN/Creatinine Ratio 13.2, Glucose 94, Calcium 8.8, Total Bilirubin 0.90, AST 19, ALT 18, Alkaline Phosphatase 79, Total Protein 5.8 L, Albumin 2.5 L, Globulin 3.3, Albumin/Globulin Ratio 0.8 L Microbiology: Microbiology 03/17/22 00:45 Stool Stool Lactoferrin - Final 03/17/22 00:45 Stool Enteric Bacteriology - Final 03/17/22 00:45 Stool C. difficile DNA Amplification - Final 03/17/22 02:45 Stool Stool Occult Blood (TIMI) - Final Occult Blood Positive D/C Instructions Discharge Diet: Low fat / Low cholesterol (recommend quitting smoking) Discharge Activity: Return to Normal Activity Return to work on: 03/20/22 Meaningful Use Info Meaningful Use Diagnoses (Choose all that apply): None applicable Discharge Plan Admission Admit Date/Time: 03/16/22 23:59 Primary Reason for Your Visit: Acute Abdominal Pain Attending Provider: Tiny Soliz Primary Care Provider: Sherrie Song Consulting Providers: Carson Morales ; Ron Larios Discharge Orders/Prescriptions Prescriptions: New ciprofloxacin HCl [Cipro] 500 mg tablet 500 mg PO BID Qty: 10 RF: 0 metronidazole 500 mg tablet 500 mg PO Q8H Qty: 15 RF: 0 Continued aspirin 81 mg tablet,delayed release (DR/EC) 81 mg PO DAILY RF: 0 loperamide 2 mg tablet 2 mg PO Q4H PRN MDD 16mg PRN (Reason: loose stool) RF: 0 atorvastatin 80 mg tablet 80 mg PO QHS Qty: 90 RF: 3 lisinopril 10 mg tablet 10 mg PO BID Qty: 180 RF: 3 metoprolol tartrate 50 mg tablet 25 mg PO BID Qty: 90 RF: 3 ezetimibe 10 mg tablet 10 mg PO DAILY Qty: 90 RF: 3 prasugrel 10 mg tablet 10 mg PO DAILY Qty: 90 RF: 3 Referrals / Follow Up: Sherrie Song MD [Primary Care Provider] - Within 2 Weeks Disposition Disposition (needs filled in before D/C Order can be placed): Home, Self Care Charges/Coding Visit Charges Inpatient E&M: 99535 Disch Hosp
[2022-03-18 09:57] VITALS: BP 131/89; PULSE 65
[2022-03-18] MEDS: Metoprolol Tartrate 25 MG Tablet PO (09:57)
[2022-03-18] MEDS: Ezetimibe 10 MG Tablet PO (09:58)
[2022-03-18] MEDS: Lisinopril 10 MG Tablet PO (09:58)
[2022-03-18 11:29] VITALS: BP 151/54; PULSE 65; RESP 18; TEMP 36.7; O2SAT 96
[2022-03-20 11:46] LABS: Pathologist Review Reviewed
== END 2022-03-18 12:30 | disposition home or self-care (01) | DRG 392 ==
LOC: ED 03-17 00:06 → MS3 03-17 06:44
PROVIDERS: Emergency Medicine; Admitting Provider Hospitalist; Emergency Provider Emergency Medicine; PCP Internal Medicine; Visit Provider Internal Medicine
DX: K52.9 Noninfective gastroenteritis and colitis, unspecified (principal); J44.9 Chronic obstructive pulmonary disease, unspecified; I73.9 Peripheral vascular disease, unspecified; D64.9 Anemia, unspecified; K57.90 Diverticulosis of intestine, part unspecified, without perforation or abscess without bleeding; I10 Essential (primary) hypertension; I65.29 Occlusion and stenosis of unspecified carotid artery; I25.10 Atherosclerotic heart disease of native coronary artery without angina pectoris; E78.2 Mixed hyperlipidemia; E86.0 Dehydration; K82.8 Other specified diseases of gallbladder; I25.2 Old myocardial infarction; F17.210 Nicotine dependence, cigarettes, uncomplicated; R01.1 Cardiac murmur, unspecified; Z87.891 Personal history of nicotine dependence; Z80.0 Family history of malignant neoplasm of digestive organs; Z79.82 Long term (current) use of aspirin; Z79.02 Long term (current) use of antithrombotics/antiplatelets; E78.5 Hyperlipidemia, unspecified
CPT/HCPCS: 36415; 74177; 80048; 80053; 80076; 81001; 82274; 83605; 83630; 83690; 85025; 87040; 87177; 87209; 87493; 87506; 96361; 96365; 96366; 96367; 96372; 96375; 96376; 97802; 99218; 99284; 99406; J7030; J7050; J7120; Q9967; A4216; G0378; J2405

== ENCOUNTER → 2022-04-06 | Outpatient (CLI) | payer MEDICARE, MEDICAID, SELFPAY ==
--- NOTE | 2022-04-06 07:59 | RDU_ITS ---
Reason For Study: Stenosis Right Renal Artery Left Renal Artery Right renal artery ostium Left renal artery ostium 239.6/35.3 211.5/27.1 RSV/EDV. PSV/EDV. Right renal artery proximal Left renal artery proximal PSV/EDV 195.8/27.1 PSV/EDV. 353.4/32.1 . Right renal artery mid 277/37.7 Left renal artery mid 211.8/30.6 PSV/EDV. PSV/EDV . Right renal artery distal Left renal artery distal 131.8/22 214.3/29.8 PSV/EDV. PSV/EDV. Aorta prox, 1.23 x 1.25 x 1.23 cm. Aorta prox, 45.9 cm/sec. Aorta distal, 1.00 x 1.03 x 1.00 cm. Aorta distal, 68.6 cm/sec. Celiac artery, 553.2 cm/sec. Hepatic artery, 363.6 cm/sec. Splenic artery, 112.2 cm/sec. SMA origin, 697.4 cm/sec. SMA prox, 125.2 cm/sec. SMA mid, 54.4 cm/sec. SMA distal, 64.2 cm/sec. NATALIE origin, 444.3 cm/sec. NATALIE prox, 162 cm/sec. NATALIE mid, 104.4 cm/sec. NATALIE distal, 81.9 cm/sec. Procedures Left voicemail at Dr. Song's office with preliminary report. VL/Renal Artery Duplex Ultrasound Interpretation Summary Bilateral renal arteries with greater than 60% stenosis. 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 Further evaluation is clinically warranted. Ordering Physician: Sherrie Song Referring Physician: Sherrie Song Performed By: Willinger, Tiffani, RVT
== END | disposition home or self-care (01) ==
LOC: CVS 07:58
PROVIDERS: PCP Internal Medicine; Referring Provider Internal Medicine; Visit Provider Internal Medicine
DX: I10 Essential (primary) hypertension (principal); K55.1 Chronic vascular disorders of intestine; I70.1 Atherosclerosis of renal artery; I25.10 Atherosclerotic heart disease of native coronary artery without angina pectoris
CPT/HCPCS: 93975

== ENCOUNTER 2022-04-26 20:11 | Emergency (ER) | payer MEDICARE, MEDICAID, SELFPAY ==
[2022-04-26 20:12] VITALS: BP 170/47; PULSE 77; RESP 16; TEMP 37; O2SAT 100; BMI 22.7
[2022-04-26 20:14] VITALS: BP 170/47; PULSE 77; RESP 16; TEMP 37; O2SAT 100
[2022-04-26] MEDS: Ondansetron 4 MG/2 ML Vial IV (21:47)
[2022-04-26] MEDS: Morphine 4 MG/ML Syringe IV ×2 (21:47→23:40)
[2022-04-26 21:49] VITALS: BP 167/68; PULSE 80; RESP 16; O2SAT 98
[2022-04-26 22:03] LABS: Basophil# 0.05 X10^3/uL; Basophil% 0.3 % (0-1); Eosinophil# 0.03 X10^3/uL; Eosinophils% 0.2 % (0-5); Hematocrit 46.9 % (40-54); Lymphocyte % 12.9 % (19-41); Mean Corpuscular Hgb 30.2 pg (27.0-32.0); Mean Corpuscular Volume 94.6 fL (80-94); Mean Platelet Vol. 11.1 fl (6.2-12.0); Monocyte# 1.38 X10^3/uL; Monocyte% 7.7 % (0-10); NRBC Flagged by Analyzer 0 % (0-5); Neutrophil # 13.95 X10^3/uL (2.7-7.7); Neutrophil % 78.3 % (47-70); Platelet Count 304 K/mm3 (150-450); RBC Distribution Width CV 14.4 % (11.6-14.6); Red Blood Count 4.96 M/mm3 (4.6-6.2); White Blood Count 17.8 K/mm3 (4.4-11.0)
[2022-04-26 22:18] LABS: ALB/GLOB Ratio 0.8 RATIO (0.9-2.4); AST(SGOT) 23 U/L (15-37); Alanine Aminotransfer ALT/SGPT 30 U/L (16-61); Albumin, Serum 3.7 g/dL (3.2-5.0); Alkaline Phosphatase 108 U/L (45-117); BUN 17 mg/dL (7-18); BUN/Creat Ratio 20.3 RATIO (10-20); Calcium,Total 10.1 mg/dL (8.5-10.1); Chloride 102 mmol/L (98-107); Creatinine, Serum 0.84 mg/dL (0.70-1.30); EST Glomerular Filtration Rate 95 mL/min (>60); Est Glom Filt Rate - Afr Amer 115 mL/min (>60); Estimated Creatinine Clearance 70.69 ml/min; Globulin 4.4 g/dL (2.2-4.2); Glucose 101 mg/dL (74-106); Lipase 97 U/L (73-393); Potassium 3.9 mmol/L (3.5-5.1); Protein, Total 8.1 g/dL (6.4-8.2); Sodium Level 136 mmol/L (136-145)
[2022-04-26 22:19] LABS: Anion Gap 10 (5-15)
--- NOTE | 2022-04-26 23:27 | EDS_ITS ---
HPI <Dr. Branden Esposito MD - Last Filed: 05/08/22 08:55> HPI - GI History of Present Illness Chief Complaint: Abd Pain Detail of Chief Complaint: Colicky upper abdominal pain that is worse with eating Informant: patient and family Abdominal Pain/Flank Pain Onset: Month(s) Context: Sudden Onset Timing: Intermittent Quality: Aching and Cramping Location: RUQ and LUQ Current Severity: Severe Maximum Severity: Severe Worsened by: Food Relieved by: Nothing Nausea/Vomiting/Emesis GI Symptom: Positive for Nausea; Negative for Vomiting Diarrhea/Melena/Hematochezia GI Symptom: Negative for Diarrhea, Melena or Hematochezia Associated Symptoms Associated Symptoms: Negative for Dysuria, Frequency, Hematuria or Urgency Narrative Narrative: Patient nor family member are good informant. He states he is seen by Dr. Dunbar. He had a CT of the abdomen performed which was unremarkable. He had renal ultrasound performed which revealed bilateral renal stenosis of 60%. 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 He denies fever, chills night sweats. He denies upper respiratory infectious symptoms. He denies cardiac or respiratory symptoms. He localizes the pain to the upper quadrants. He states it is colicky. He states it severe and made worse when he eats. He does not have a follow-up appointment with Dr. Dunbar since he went on vacation. He does report intermittent diarrhea. He has not noted blood or mucus in the diarrhea. He has had no ill contacts. He has not been on antibiotics recently. Prior similar symptoms: Yes Recent Illness/Hospitalization: Yes [facility] <Dr. 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 Atherosclerotic heart disease of [place] coronary artery without angina pectoris Bilateral carotid artery disease Bilateral carotid bruits CAD (coronary artery disease) Cardiac murmur Cerebrovascular disease COPD (chronic obstructive pulmonary disease) Essential hypertension Gallbladder disease History of myocardial infarction History of stress test Hydrops of gallbladder Mixed hyperlipidemia Old myocardial infarction Peripheral vascular angioplasty status Peripheral vascular disease Tobacco abuse Home Medications aspirin 81 mg tablet,delayed release 81 mg PO DAILY [facility] 11/08/20 [History Last Taken 03/16/22] atorvastatin 80 mg tablet 80 mg PO QHS #90 tabs 07/10/21 [Rx Last Taken 03/15/22] lisinopril 10 mg tablet 10 mg PO BID #180 tabs 07/25/21 [Rx Last Taken 03/16/22 08:00] metoprolol tartrate 50 mg tablet 25 mg PO BID #90 tabs 11/02/21 [Rx Last Taken 03/16/22 0800] ezetimibe 10 mg tablet 10 mg PO DAILY blood thinner #90 tabs 01/31/22 [Rx Last Taken 03/16/22] prasugrel 10 mg tablet 10 mg PO DAILY blood thinner #90 tabs 03/14/22 [Rx Last Taken 03/16/22] dicyclomine 10 mg capsule 10 mg PO Q6H PRN PRN abdominal discomfort #20 CAPSULES 04/27/22 [Rx Last Taken Unknown] ondansetron 4 mg disintegrating tablet 8 mg PO Q8H PRN PRN Nausea #20 tabs 04/27/22 [Rx Last Taken Unknown] Allergy/AdvReac Type Severity Reaction Status Date / Time clopidogrel [From Plavix] Allergy Intermediate Hives Verified 04/26/22 20:15 Family History Father Colon cancer Mother Hypertension Diabetes Surgical History H/O cardiac catheterization Presence of coronary angioplasty implant and graft (~12/2008) Presence of stent in coronary artery (~12/28/08) Status post insertion of iliac artery stent (~12/2008) Social History Smoking Status: Current every day smoker tobacco type: cigarettes Tobacco: How many years used: 45 alcohol intake: current alcohol intake frequency: a few times a week Alcohol type: beer substance use type: does not use caffeine: Yes Type: coffee Number of servings: 3 what type of physical activity do you participate in: walking frequency: 3-4 times per week ROS <Dr. Branden Esposito MD - Last Filed: 05/08/22 08:55> ROS ED Constitutional Constitutional ED: Denies chills, fever(s), subjective, sweats or weight loss ENT ENT ED: Denies ear pain, rhinorrhea or sore throat Cardiovascular Cardiovascular: Denies chest pain, orthopnea, palpitations, paroxysmal nocturnal dyspnea or racing heartbeat Respiratory/Chest Respiratory/Chest: Denies cough, dyspnea, dyspnea on exertion, orthopnea or paroxysmal nocturnal dyspnea Gastrointestinal Gastrointestinal: Reports abdominal pain, diarrhea and nausea; Denies constipation, melena or vomiting Genitourinary Genitourinary ED: Denies dysuria, hematuria or urinary frequency Musculoskeletal Musculoskeletal: Denies arthralgias, back pain, myalgias or neck pain Integumentary Denies abscess, Abrasions or rash Neurologic Neurologic: Denies headache(s), paresthesias or weakness Endocrine Endocrinology: Denies polydipsia, polyphagia or polyuria Hematologic/Lymphatic Hematologic/Lymphatic: Denies easy bleeding or easy bruising EXAM <Dr. Branden Esposito MD - Last Filed: 05/08/22 08:55> Physical Exam Const Vital Signs: 04/26/22 20:12 04/26/22 20:14 04/26/22 21:49 Temperature 98.6 F 98.6 F Temperature Source Temporal Temporal Pulse Rate 77 77 80 Respiratory Rate 16 16 16 Blood Pressure 170/47 H 170/47 H 167/68 H Blood Pressure Mean 88 88 101 Pulse Ox 100 100 98 Oxygen Delivery Method Room Air Room Air Room Air 04/26/22 23:39 04/27/22 01:42 Temperature Temperature Source Pulse Rate 84 88 Respiratory Rate 16 16 Blood Pressure 154/64 H 129/63 H Blood Pressure Mean 94 85 Pulse Ox 98 95 Oxygen Delivery Method Room Air Room Air Positive well nourished and well developed; Negative for cachectic or contractures Constitutional Narrative: Patient looks uncomfortable. He is holding his abdomen. General Appearance ED: well developed; Negative for cachectic, contractures, NAD or pallor Nutritional Appearance: Negative for cachectic HEENT Reports TM's clear and dry mucous membranes HEENT Narrative: Dentition is poor. Ears normal. TMs normal. Nares patent. Uvula is midline. There is no erythema or exudate of the posterior pharynx. normocephalic and atraumatic Tympanic Membrane ED: Yes TM's clear Mouth ED: Yes dry mucous membranes Mouth: dry mucous membranes Eyes PERRL and EOMs intact bilaterally General Eye ED: Negative for pale conjunctiva or scleral icterus Neck no lymphadenopathy, supple and no JVD Resp normal respiratory effort and clear to auscultation bilaterally Cardio regular rate, regular rhythm, S1 normal heart sound, S2 normal heart sound and no murmurs GI Negative for non-tender, non-distended or no masses GI Narrative: Abdomen slightly tympanitic to percussion. Bowel sounds are diminished. There is tenderness right and left upper quadrant. He does have guarding. He complains of discomfort with percussion. He does not complain of referred pain. Shaking of the bed does not cause him to have increased pain. Inspection: Negative for abdominal distention Auscultation: hypoactive bowel sounds Palpation: tender and guarding; Negative for rigid, hepatomegaly, splenomegaly or hernia Back/Spine no CVA tenderness Cervical Spine: Negative for cervical spine tenderness Thoracic Spine / Upper Back: Negative for thoracic spinal tenderness Lumbar Spine / Lower Back: Negative for lumbar spinal tenderness Extremity full ROM General Extremety ED: Negative for edema or tenderness General Extremity: Negative for edema Neuro CN's II-XII intact bilaterally, moves all extremities and no sensory deficits noted Sensorium / Orientation: alert Motor Exam: strength 5/5 throughout Psych mental status grossly normal and thought process normal Skin no wounds General Skin Exam: Negative for jaundice or pallor Lesions: no lesions Rashes: no rashes <Dr. Srikanth Quintana MD - Last Filed: 04/27/22 03:24> Physical Exam Const Vital Signs: 04/26/22 20:12 04/26/22 20:14 04/26/22 21:49 Temperature 98.6 F 98.6 F Temperature Source Temporal Temporal Pulse Rate 77 77 80 Respiratory Rate 16 16 16 Blood Pressure 170/47 H 170/47 H 167/68 H Blood Pressure Mean 88 88 101 Pulse Ox 100 100 98 Oxygen Delivery Method Room Air Room Air Room Air 04/26/22 23:39 04/27/22 01:42 Temperature Temperature Source Pulse Rate 84 88 Respiratory Rate 16 16 Blood Pressure 154/64 H 129/63 H Blood Pressure Mean 94 85 Pulse Ox 98 95 Oxygen Delivery Method Room Air Room Air [facility] <Dr. Branden Esposito MD - Last Filed: 05/08/22 08:55> [facility] Narrative Medical decision making narrative: Patient presents with postprandial symptoms. Will obtain CTA of the abdomen and pelvis to assess his superior mesenteric artery as well as the amount of st enosis involving the celiac and inferior mesenteric artery. Lab Data Attestation: I reviewed the patient's lab results. Lab results narrative: White count is elevated 17.8 thousand with shift. Comprehensive metabolic panel is remarkable for total bili of 1.1 which is not significant. Lipase is normal. Labs: Laboratory Results - last 24 hr 04/26/22 04/26/22 21:15 21:15 WBC 17.8 H RBC 4.96 Hgb 15.0 Hct 46.9 MCV 94.6 H MCH 30.2 MCHC 32.0 RDW Std Deviation 50.0 H RDW Coeff of Arnoldo 14.4 Plt Count 304 MPV 11.1 Immature Gran % (Auto) 0.600 Neut % (Auto) 78.3 H Lymph % (Auto) 12.9 L [place] % (Auto) 7.7 Eos % (Auto) 0.2 Baso % (Auto) 0.3 Absolute Neuts (auto) 14.0 H Absolute Lymphs (auto) 2.30 Nucleated RBC % 0 Sodium 136 Potassium 3.9 Chloride 102 Carbon Dioxide 24.0 Anion Gap 10 BUN 17 Creatinine 0.84 Estim Creat Clear Calc 70.69 Est GFR (MDRD) Af Amer 115 Est GFR (MDRD) Non-Af 95 BUN/Creatinine Ratio 20.3 H Glucose 101 Calcium 10.1 Total Bilirubin 1.10 H AST 23 ALT 30 Alkaline Phosphatase 108 Total Protein 8.1 Albumin 3.7 Globulin 4.4 H Albumin/Globulin Ratio 0.8 L Lipase 97 Radiography Diagnostic Testing: Clinical Impression(s) from Imaging Studies Abdomen/Pelvis CTA 04/27/22 23:06 IMPRESSION: 1. Indeterminate intraluminal mass within the lumen of the gallbladder. Tumor is not excluded. 2. Possible gastroenteritis. Electronically Signed: René García MD at 1:14 EDT , <Dr. Srikanth Quintana MD - Last Filed: 04/27/22 03:24> [facility] Narrative Medical decision making narrative: Patient presents with postprandial symptoms. Will obtain CTA of the abdomen and pelvis to assess his superior mesenteric artery as well as the amount of stenosis involving the celiac and inferior mesenteric artery. Patient checked out to me. His CTA shows no acute vascular abnormality or signs of mesenteric ischemia. He has radiographic findings consistent with gastroenteritis, his symptoms are also consistent with that. They did note an indeterminate mass in the lumen of the gallbladder. Discussed with the patient that it is possible this could be cancer, further work-up/follow-up advised as an outpatient. We will discharge him on Zofran and dicyclomine to use as needed, discussed reasons to return he is comfortable with that plan. Lab Data Labs: Laboratory Results - last 24 hr 04/26/22 04/26/22 21:15 21:15 WBC 17.8 H RBC 4.96 Hgb 15.0 Hct 46.9 MCV 94.6 H MCH 30.2 MCHC 32.0 RDW Std Deviation 50.0 H RDW Coeff of Arnoldo 14.4 Plt Count 304 MPV 11.1 Immature Gran % (Auto) 0.600 Neut % (Auto) 78.3 H Lymph % (Auto) 12.9 L [place] % (Auto) 7.7 Eos % (Auto) 0.2 Baso % (Auto) 0.3 Absolute Neuts (auto) 14.0 H Absolute Lymphs (auto) 2.30 Nucleated RBC % 0 Sodium 136 Potassium 3.9 Chloride 102 Carbon Dioxide 24.0 Anion Gap 10 BUN 17 Creatinine 0.84 Estim Creat Clear Calc 70.69 Est GFR (MDRD) Af Amer 115 Est GFR (MDRD) Non-Af 95 BUN/Creatinine Ratio 20.3 H Glucose 101 Calcium 10.1 Total Bilirubin 1.10 H AST 23 ALT 30 Alkaline Phosphatase 108 Total Protein 8.1 Albumin 3.7 Globulin 4.4 H Albumin/Globulin Ratio 0.8 L Lipase 97 Radiography Diagnostic Testing: Clinical Impression(s) from Imaging Studies Abdomen/Pelvis CTA 04/27/22 23:06 IMPRESSION: 1. Indeterminate intraluminal mass within the lumen of the gallbladder. Tumor is not excluded. 2. Possible gastroenteritis. Electronically Signed: René García MD at 1:14 EDT , Discharge Plan Triage Chief Complaint: Abd Pain ED Provider: Rosemary Espositoo Dx/Rx/DC Orders Clinical Impression: Gastroenteritis, Acute upper abdominal pain, Gallbladder mass Instructions: Viral Gastroenteritis Prescriptions: New dicyclomine 10 mg capsule 10 mg PO Q6H PRN PRN (Reason: abdominal discomfort) Qty: 20 0RF ondansetron [ondansetron] 4 mg tablet,disintegrating 8 mg PO Q8H PRN PRN (Reason: Nausea) Qty: 20 0RF No Action aspirin 81 mg tablet,delayed release (DR/EC) 81 mg PO DAILY atorvastatin 80 mg tablet 80 mg PO QHS Qty: 90 3RF lisinopril 10 mg tablet 10 mg PO BID Qty: 180 3RF metoprolol tartrate 50 mg tablet 25 mg PO BID Qty: 90 3RF ezetimibe 10 mg tablet 10 mg PO DAILY Qty: 90 3RF prasugrel 10 mg tablet 10 mg PO DAILY Qty: 90 3RF Primary Care Provider: Sherrie Song Referrals: Sherrie Song MD [Primary Care Provider] - As soon as possible Activity Restrictions/Additional Instructions: Your abdominal CT scan showed a small indeterminate mass inside of your gallbladder. You may need further test to sort out what this is exactly, cancer is not ruled out at this time. Make sure you discussed with your doctor. Disposition Disposition: Home, Self Care Discharge Date/Time: 04/27/22 03:39
[2022-04-26 23:39] VITALS: BP 154/64; PULSE 84; RESP 16; O2SAT 98
[2022-04-27 01:42] VITALS: BP 129/63; PULSE 88; RESP 16; O2SAT 95
[2022-04-27 03:31] VITALS: BP 154/64; PULSE 80; RESP 28
--- NOTE | 2022-04-27 23:06 | CT_ITS ---
EXAM: CT ANGIOGRAPHY ABDOMEN AND PELVIS WITHOUT AND WITH INTRAVENOUS CONTRAST CLINICAL INDICATION: Postprandial angina TECHNIQUE: Helically acquired angiography images were obtained of the abdomen and pelvis without and with intravenous contrast. CTDIvol = ( 7.32 ) mGy, DLP = ( 274.33 ) mGycm This CT exam was performed using one or more of the following dose reduction techniques: automated exposure control, adjustment of the mA and/or kV according to patient size, and/or use of iterative reconstruction technique. This report was created using Skycatch report generation technology. MIP reconstructed images were created and reviewed. CONTRAST: IV 100mL [id number] COMPARISON: None. FINDINGS: VASCULATURE: AORTA: No acute findings. Normal caliber abdominal aorta. No dissection. CELIAC TRUNK AND MESENTERIC ARTERIES: No acute findings. No occlusion or significant stenosis. No dissection. RENAL ARTERIES: No acute findings. No occlusion or significant stenosis. No dissection. ILIAC ARTERIES: No acute findings. No occlusion or significant stenosis. No dissection. LOWER THORAX: Small hiatal hernia. Lung bases are clear. No cardiomegaly. No significant pericardial effusion. ABDOMEN: LIVER: Unremarkable. Homogeneous. No focal mass. GALLBLADDER AND BILE DUCTS: Heterogeneous soft tissue mass within the lumen of the distended gallbladder posteriorly with measures 3.0 x 2.0 cm. Tumor associated. No calcified gallstones. No intra- or extrahepatic biliary ductal dilation. PANCREAS: Unremarkable. No focal cystic or solid mass. SPLEEN: Calcifications of the spleen are compatible with old granulomatous disease. ADRENALS: Unremarkable. No nodules. KIDNEYS AND URETERS: Unremarkable. Normal renal size and position. No hydronephrosis. STOMACH AND BOWEL: Fluid within nondistended loops of small and large bowel as well as the stomach can be seen with gastroenteritis in the appropriate clinical setting. No colitis or diverticulitis or bowel obstruction. PELVIS: APPENDIX: No evidence of acute appendicitis. BLADDER: Unremarkable. REPRODUCTIVE: Unremarkable as visualized. No mass. ABDOMEN and PELVIS: INTRAPERITONEAL SPACE: No free air or free fluid. BONES/JOINTS: Unremarkable. No suspicious lytic or blastic abnormality. SOFT TISSUES: Unremarkable. No discrete abdominal or pelvic wall hernia. LYMPH NODES: Unremarkable. No enlarged lymph nodes. CT/CT ANGIO ABD&PEL W/O&W/DYE IMPRESSION: 1. Indeterminate intraluminal mass within the lumen of the gallbladder. Tumor is not excluded. 2. Possible gastroenteritis. Electronically Signed: René García MD at 1:14 EDT ,
== END 2022-04-27 03:39 | disposition home or self-care (01) ==
PROVIDERS: Emergency Provider Emergency Medicine; PCP Internal Medicine; Visit Provider Emergency Medicine
DX: K52.9 Noninfective gastroenteritis and colitis, unspecified (principal); J44.9 Chronic obstructive pulmonary disease, unspecified; R10.10 Upper abdominal pain, unspecified; K82.9 Disease of gallbladder, unspecified; I25.10 Atherosclerotic heart disease of native coronary artery without angina pectoris; I10 Essential (primary) hypertension; E78.2 Mixed hyperlipidemia; F17.210 Nicotine dependence, cigarettes, uncomplicated; Z79.82 Long term (current) use of aspirin; Z79.899 Other long term (current) drug therapy; Z95.5 Presence of coronary angioplasty implant and graft; Z80.0 Family history of malignant neoplasm of digestive organs
CPT/HCPCS: 74174; 80053; 83690; 85025; 96361; 96374; 96375; 96376; 99283; J7030; Q9967; A4216; J2405

== ENCOUNTER 2022-05-13 16:28 | Emergency (ER) | payer MEDICARE, MEDICAID, SELFPAY ==
[2022-05-13 16:30] VITALS: BP 102/51; PULSE 86; RESP 15; TEMP 36.7; O2SAT 97; BMI 22.7
--- NOTE | 2022-05-13 16:55 | ED.VIS.GI ---
HPI HPI - GI History of Present Illness Chief Complaint: Abd Pain Informant: patient Abdominal Pain/Flank Pain Onset: Today (around [id number]) Context: Gradual Onset (after eating applesauce this AM) Timing: Continuous (for past 8 hrs) Quality: Aching Location: - (across upper abd, between epigast and umbilicus) Current Severity: Moderate Maximum Severity: Moderate Worsened by: Food (about 30-45 min after) Nausea/Vomiting/Emesis GI Symptom: Positive for Nausea and Vomiting Onset: Today Quality: Positive for Nonbilious; Negative for Blood streaks, Coffee ground or Hematemesis Severity: Mild Diarrhea/Melena/Hematochezia GI Symptom: Positive for Diarrhea (Chronic and unchanged, last bowel couple hours ago which did not change his pain); Negative for Melena or Hematochezia Associated Symptoms Associated Symptoms: Negative for Dysuria, Frequency, Hematuria or Urgency Narrative Narrative: Patient has been having these abdominal symptoms for the last several months. 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 Dunbar with vascular, and as a result has a special CT scan of that area scheduled but the family does not know anything else about that; he had a CTA here the last time he was here several weeks ago for similar symptoms, it did not show, but he has had CT/ultrasound that have suggested arterial disease in this area. He typically gets episodes that last for an hour or 2, starting 30 minutes or so after eating a meal. Today it did start 30 or 45 minutes after eating applesauce, however the pain has been more severe and has not let up in the past 8 hours or so. The symptoms are otherwise the same. 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 Atherosclerotic heart disease of [place] coronary artery without angina pectoris Bilateral carotid artery disease Bilateral carotid bruits CAD (coronary artery disease) Cardiac murmur Cerebrovascular disease COPD (chronic obstructive pulmonary disease) Essential hypertension Gallbladder disease History of myocardial infarction History of stress test Hydrops of gallbladder Mixed hyperlipidemia Old myocardial infarction Peripheral vascular angioplasty status Peripheral vascular disease Tobacco abuse Home Medications aspirin 81 mg tablet,delayed release 81 mg PO DAILY heart health 11/08/20 [History Last Taken 03/16/22] atorvastatin 80 mg tablet 80 mg PO QHS #90 tabs 07/10/21 [Rx Last Taken 03/15/22] lisinopril 10 mg tablet 10 mg PO BID #180 tabs 07/25/21 [Rx Last Taken 03/16/22 08:00] metoprolol tartrate 50 mg tablet 25 mg PO BID #90 tabs 11/02/21 [Rx Last Taken 03/16/22 0800] ezetimibe 10 mg tablet 10 mg PO DAILY blood thinner #90 tabs 01/31/22 [Rx Last Taken 03/16/22] prasugrel 10 mg tablet 10 mg PO DAILY blood thinner #90 tabs 03/14/22 [Rx Last Taken 03/16/22] Allergy/AdvReac Type Severity Reaction Status Date / Time clopidogrel [From Plavix] Allergy Intermediate Hives Verified 05/13/22 16:29 Family History Father Colon cancer Mother Hypertension Diabetes Surgical History H/O cardiac catheterization Presence of coronary angioplasty implant and graft (~12/2008) Presence of stent in coronary artery (~12/28/08) Status post insertion of iliac artery stent (~12/2008) Social History Smoking Status: Current every day smoker tobacco type: cigarettes Tobacco: How many years used: 45 alcohol intake: current alcohol intake frequency: a few times a week Alcohol type: beer substance use type: does not use caffeine: Yes Type: coffee Number of servings: 3 what type of physical activity do you participate in: walking frequency: 3-4 times per week ROS ROS ED Constitutional Constitutional ED: Denies chills or fever(s) Eyes Eyes: Denies change in vision or diplopia ENT ENT ED: Denies rhinorrhea or sore throat Cardiovascular Cardiovascular: Denies chest pain or palpitations Respiratory/Chest Respiratory/Chest: Denies cough or dyspnea Gastrointestinal Gastrointestinal: Reports as per HPI, abdominal pain, diarrhea, nausea and vomiting Genitourinary Genitourinary ED: Denies dysuria or hematuria Musculoskeletal Musculoskeletal: Denies back pain or neck pain Integumentary Denies abscess or rash Neurologic Neurologic: Denies headache(s), paresthesias or weakness Psychiatric Psychiatric: Denies anxiety or suicidal thoughts EXAM Physical Exam Const Vital Signs: 05/13/22 16:30 05/13/22 18:47 05/13/22 20:13 Temperature 98.0 F Temperature Source Temporal Pulse Rate 86 74 73 Respiratory Rate 15 18 16 Blood Pressure 102/51 L 171/64 H 173/60 H Blood Pressure Mean 68 99 97 Pulse Ox 97 98 96 Oxygen Delivery Method Room Air Room Air Room Air Positive well nourished and well developed General Appearance ED: well developed and NAD HEENT Reports moist mucous membranes normocephalic and atraumatic Eyes PERRL and EOMs intact bilaterally Neck full ROM and supple Resp normal respiratory effort and clear to auscultation bilaterally Cardio regular rate, regular rhythm and no murmurs GI non-distended GI Narrative: Mild tenderness just supraumbilical both sides of midline, but not laterally. No lower abdominal tenderness, no epigastric tenderness. Auscultation: normoactive bowel sounds Palpation: soft Back/Spine no CVA tenderness General Back: other FROM Extremity normal to inspection General Extremety ED: Negative for edema, pulses abnormal or tenderness General Extremity: Negative for edema or pulses abnormal Neuro oriented x3, CN's II-XII intact bilaterally and no sensory deficits noted Sensorium / Orientation: awake and alert Motor Exam: strength 5/5 throughout Skin no rashes or lesions noted and no wounds MDM MDM MDM Narrative Medical decision making narrative: Given the patient's significant PAD and history, there is concern for the possibility of mesenteric ischemia here. He does not have classic history and exam for this, but he already has known arterial disease in abdominal vascular structures. For this reason and given his persistent pain, I started with labs and a lactic acid, however the lactic acid was high. Therefore I am not really able to use this in order to rule out acute mesenteric ischemia. He was given morphine, that helped, and he was given another dose later, then his pain was resolved. I went forward with doing a repeat CT angiography of the abdominal vascular structures, he had this about 3 weeks ago. It shows no progression, and it shows stable stenoses in multiple vessels. I attempted to discuss with his vascular surgeon, however he is not on-call tonight and we do not have vascular service at this hospital. Since he is pain-free and the CT is stable, I am comfortable discharging him home at this time, it is Saturday. He should call his vascular surgeon tomorrow for further instructions. He is on dual antiplatelet therapy at this time, and I would defer to his vascular surgeon if he should upgrade this to full anticoagulation. Lab Data Attestation: I reviewed the patient's lab results. Labs: Laboratory Results - last 24 hr 05/13/22 05/13/22 05/13/22 17:00 17:00 17:00 WBC 13.5 H RBC 4.58 L Hgb 13.7 Hct 42.6 MCV 93.0 MCH 29.9 MCHC 32.2 RDW Std Deviation 47.5 H RDW Coeff of Arnoldo 14.0 Plt Count 371 MPV 10.3 Immature Gran % (Auto) 0.500 Neut % (Auto) 72.2 H Lymph % (Auto) 19.2 [place] % (Auto) 7.4 Eos % (Auto) 0.2 Baso % (Auto) 0.5 Absolute Neuts (auto) 9.8 H Absolute Lymphs (auto) 2.60 Nucleated RBC % 0 Sodium 134 L Potassium 3.8 Chloride 99 Carbon Dioxide 21.0 Anion Gap 14 BUN 22 H Creatinine 0.90 Estim Creat Clear Calc 65.97 Est GFR (MDRD) Af Amer 106 Est GFR (MDRD) Non-Af 88 BUN/Creatinine Ratio 24.6 H Glucose 101 Lactic Acid 2.3 H* Calcium 9.8 Total Bilirubin 0.70 AST 22 ALT 24 Alkaline Phosphatase 103 Total Protein 7.4 Albumin 3.0 L Globulin 4.4 H Albumin/Globulin Ratio 0.7 L Lipase 99 Radiography Diagnostic Testing: Clinical Impression(s) from Imaging Studies Abdomen/Pelvis CTA 05/13/22 18:33 IMPRESSION: (NOT LISTED IN ORDER OF SIGNIFICANCE) Minimal wall thickening and inflammation of the cecum and ascending colon can represent a mild colitis. There is either tumefactive sludge or a mass in the gallbladder lumen as previous noted. Appropriate management is recommended. Celiac and superior mesenteric arteries: There is a mural thrombus in the origin of the celiac axis causing moderate to severe cyst or masses. There is a mural thrombus at the origin of the SMA causing severe stenosis. Both of these findings are stable. Metallic foreign bodies near the gastric antrum. Left renal artery(arteries): There is severe diffuse narrowing. There are 2 left renal arteries. Minimal air-fluid levels in the small bowel with minimal distention suggesting an ileus. Developing obstruction cannot be excluded. Right and Left common iliac and external iliac stent grafts are patent. Other findings as above. Electronically Signed: Valentin Polo MD at 20:16 EDT , Discharge Plan Triage Chief Complaint: Abd Pain ED Provider: Srikanth Quintana Dx/Rx/DC Orders Clinical Impression: Acute upper abdominal pain, Celiac artery stenosis Instructions: Abdominal Pain Prescriptions: No Action aspirin 81 mg tablet,delayed release (DR/EC) 81 mg PO DAILY atorvastatin 80 mg tablet 80 mg PO QHS Qty: 90 3RF lisinopril 10 mg tablet 10 mg PO BID Qty: 180 3RF metoprolol tartrate 50 mg tablet 25 mg PO BID Qty: 90 3RF ezetimibe 10 mg tablet 10 mg PO DAILY Qty: 90 3RF prasugrel 10 mg tablet 10 mg PO DAILY Qty: 90 3RF Primary Care Provider: Sherrie Song Referrals: Vince Dunbar MD [STAFF PHYSICIAN] - As soon as possible Sherrie Song MD [Primary Care Provider] - Activity Restrictions/Additional Instructions: Call Dr. Dunbar's office to see if you should upgrade your dual antiplatelet therapy to full anticoagulation, or be reevaluated first after the CT angiography was performed here in emergency department that showed stable narrowings of several intra-abdominal arteries. Disposition Disposition: Home, Self Care
[2022-05-13] MEDS: Ondansetron 4 MG/2 ML Vial IV (17:08)
[2022-05-13] MEDS: Morphine 4 MG/ML Syringe IV ×2 (17:08→19:15)
[2022-05-13 17:21] LABS: Absolute Neutrophil Count 9.8 X10^3/uL (2.0-7.7); Basophil# 0.07 X10^3/uL; Basophil% 0.5 % (0-1); Eosinophil# 0.03 X10^3/uL; Eosinophils% 0.2 % (0-5); Hematocrit 42.6 % (40-54); Hemoglobin 13.7 g/dL (13.0-16.5); Lymphocyte % 19.2 % (19-41); Mean Corp Hgb Conc 32.2 g/dL (32-36); Mean Corpuscular Hgb 29.9 pg (27.0-32.0); Mean Platelet Vol. 10.3 fl (6.2-12.0); Monocyte% 7.4 % (0-10); NRBC Flagged by Analyzer 0 % (0-5); Neutrophil # 9.75 X10^3/uL (2.7-7.7); Neutrophil % 72.2 % (47-70); Platelet Count 371 K/mm3 (150-450); RBC Distribution Width SD 47.5 fl (35.1-43.9); Red Blood Count 4.58 M/mm3 (4.6-6.2); White Blood Count 13.5 K/mm3 (4.4-11.0)
[2022-05-13 17:41] LABS: ALB/GLOB Ratio 0.7 RATIO (0.9-2.4); AST(SGOT) 22 U/L (15-37); Alanine Aminotransfer ALT/SGPT 24 U/L (16-61); Alkaline Phosphatase 103 U/L (45-117); Anion Gap 14 (5-15); BUN 22 mg/dL (7-18); BUN/Creat Ratio 24.6 RATIO (10-20); Calcium,Total 9.8 mg/dL (8.5-10.1); Chloride 99 mmol/L (98-107); EST Glomerular Filtration Rate 88 mL/min (>60); Est Glom Filt Rate - Afr Amer 106 mL/min (>60); Estimated Creatinine Clearance 65.97 ml/min; Globulin 4.4 g/dL (2.2-4.2); Glucose 101 mg/dL (74-106); Lipase 99 U/L (73-393); Potassium 3.8 mmol/L (3.5-5.1); Protein, Total 7.4 g/dL (6.4-8.2); Sodium Level 134 mmol/L (136-145)
[2022-05-13 17:46] LABS: Lactic Acid 2.3 mmol/L (0.4-1.9)
--- NOTE | 2022-05-13 18:33 | CT_ITS ---
STUDY: CTA Abdomen and Pelvis WO/W Contrast Injection REASON FOR EXAM: Male, 76 years old. mesenteric ischemia Increasing abdominal pain x5 months. TECHNIQUE: Axial CT angiography multi-detector data acquisition was obtained following intravenous administration of IV 100mL Isovue-370 contrast. Axial images and MIP images were reconstructed from the axial data set. Post-processing of the angiographic images was performed, with multiplanar reformation and 3D reconstruction. MIPS images were obtained. Radiation: CTDIvol = [21.40] mGy, DLP = [356.58] mGy-cm Individualized dose optimization techniques were used for this CT. Comparison: Apr 27 2022 12:18am Descriptors of Narrowing: None (0%) Mild (< 50%) Moderate (50-70%) Severe (70-90%) Subtotal/Total Occlusion (90-100%) Non-Evaluable (technically non-diagnostic FINDINGS: There are atherosclerotic calcifications of visualized coronary arteries. The visualized portions of the heart are within normal limits. Normal liver. There is either tumefactive sludge or a mass in the gallbladder lumen as previous noted. There are multiple benign calcified granulomata of the spleen. Normal pancreas. Normal bilateral adrenal glands. No acute findings of the right kidney. Stable left renal cortical hypodensities. Metallic foreign bodies near the gastric antrum. There is a paralytic ileus of the small intestine with mild gaseous distention. There are multiple colonic diverticula consistent with diverticulosis. The appendix is visualized and appears normal. Minimal wall thickening and inflammation of the cecum and ascending colon can represent a mild colitis. Normal inferior vena cava. Normal retroperitoneum. Normal urinary bladder. There are prostatic calcifications. Normal abdominal wall. There are diffuse degenerative changes of the visualized lumbar spine. There is an unremarkable-appearing IVC. Abdominal aorta: There are calcifications of the abdominal aorta. This is consistent for atherosclerotic disease. There is no abdominal aortic aneurysm. Celiac and superior mesenteric arteries: There is a mural thrombus in the origin of the celiac axis causing moderate to severe cyst or masses. There is a mural thrombus at the origin of the SMA causing severe stenosis. Both of these findings are stable. Inferior mesenteric artery: There is mild diffuse narrowing. Right renal artery(arteries): There is mild diffuse narrowing. Left renal artery(arteries): There is severe diffuse narrowing. There are 2 left renal arteries. Right common iliac artery: There is mild diffuse narrowing. Patent stent. Right external iliac artery: There is mild diffuse narrowing.Patent stent. Right internal iliac artery: There is mild diffuse narrowing. Left common iliac artery: There is mild diffuse narrowing.Patent stent. Left external iliac artery: There is mild diffuse narrowing.Patent stent. Left internal iliac artery: There is mild diffuse narrowing. CT/CT ANGIO ABD&PEL W/O&W/DYE IMPRESSION: (NOT LISTED IN ORDER OF SIGNIFICANCE) Minimal wall thickening and inflammation of the cecum and ascending colon can represent a mild colitis. There is either tumefactive sludge or a mass in the gallbladder lumen as previous noted. Appropriate management is recommended. Celiac and superior mesenteric arteries: There is a mural thrombus in the origin of the celiac axis causing moderate to severe cyst or masses. There is a mural thrombus at the origin of the SMA causing severe stenosis. Both of these findings are stable. Metallic foreign bodies near the gastric antrum. Left renal artery(arteries): There is severe diffuse narrowing. There are 2 left renal arteries. Minimal air-fluid levels in the small bowel with minimal distention suggesting an ileus. Developing obstruction cannot be excluded. Right and Left common iliac and external iliac stent grafts are patent. Other findings as above. Electronically Signed: Valentin Polo MD at 20:16 EDT ,
[2022-05-13] MEDS: 0.9% Normal Saline 1,000 ML 999 ML IV (18:45)
[2022-05-13 18:47] VITALS: BP 171/64; PULSE 74; RESP 18; O2SAT 98
[2022-05-13 20:13] VITALS: BP 173/60; PULSE 73; RESP 16; O2SAT 96
[2022-05-13 21:15] LABS: Reflex Lactate? Y
[2022-05-13 21:53] LABS: Lactic Acid 1.4 mmol/L (0.4-1.9)
== END 2022-05-13 21:50 | disposition home or self-care (01) ==
PROVIDERS: Emergency Provider Emergency Medicine; PCP Internal Medicine; Visit Provider Emergency Medicine
DX: R10.10 Upper abdominal pain, unspecified (principal); J44.9 Chronic obstructive pulmonary disease, unspecified; I77.1 Stricture of artery; I73.9 Peripheral vascular disease, unspecified; R11.2 Nausea with vomiting, unspecified; I10 Essential (primary) hypertension; E78.2 Mixed hyperlipidemia; R19.7 Diarrhea, unspecified; I25.10 Atherosclerotic heart disease of native coronary artery without angina pectoris; I25.2 Old myocardial infarction; Z79.82 Long term (current) use of aspirin; Z79.899 Other long term (current) drug therapy
CPT/HCPCS: 74174; 80053; 83605; 83690; 85025; 96361; 96374; 96375; 96376; 99282; J7030; J7040; Q9967; A4216; J2405

== ENCOUNTER → 2022-05-18 | Outpatient (CLI) | payer MEDICARE, MEDICAID, SELFPAY ==
--- NOTE | 2022-05-18 15:47 | CT_ITS ---
STUDY: CTA OF THE ABDOMINAL AORTA AND BILATERAL LOWER EXTREMITIES REASON FOR EXAM: Male, 76 years old. STRICTURE OF ARTERIES WITH HISTORY OF STENTS IN LEGS RADIATION DOSAGE (If Supplied By Facility): CTDIvol = ( 7.31 ) mGy, DLP = ( 274.33 ) mGycm TECHNIQUE: Axial CT angiography multi-detector data acquisition was obtained from the lung bases to the feet following intravenous administration of IV 100mL Isovue-370. Axial images and MIP images were reconstructed from the axial data set. Post-processing of the angiographic images was performed, with multiplanar reformation and 3D reconstruction. Individualized dose optimization techniques were used for this CT. TECHNICAL QUALITY: Good COMPARISON: 05/13/2022 Descriptors of Narrowing: None (0%) Mild (< 50%) Moderate (50-70%) Severe (70-90%) Subtotal/Total Occlusion (90-100%) Non-Evaluable (technically non-diagnostic FINDINGS: Abdominal aorta: Diffuse atherosclerosis with mild degree of luminal narrowing but no hemodynamically significant stenosis, dissection or aneurysm. Celiac and superior mesenteric arteries: Calcified and noncalcified plaque of the celiac axis and superior mesenteric artery with severe ostial and proximal arterial stenosis, stable. Inferior mesenteric artery: Moderate narrowing at its origin. Right renal artery(arteries): Atherosclerosis with mild stenosis. Left renal artery(arteries): Atherosclerosis with moderate ostial stenosis and diffuse renal artery narrowing on dominant (inferior) renal artery with accessory cephalad artery noted. Right common iliac artery: There is mild diffuse narrowing. Right external iliac artery: Atherosclerosis with patent stent. No hemodynamically significant stenosis. Right internal iliac artery: There is moderate diffuse narrowing. Left common iliac artery: Patent stent. Atherosclerosis without hemodynamically significant stenosis but with diffuse mild narrowing. Left external iliac artery: Patent stent. Atherosclerosis without hemodynamically significant stenosis. Left internal iliac artery: There is moderate diffuse narrowing. RIGHT LOWER EXTREMITY Right common femoral artery: There is mild diffuse narrowing. Right profundus femoris: There is mild diffuse narrowing. Right superficial femoral: There is mild to moderate diffuse narrowing, particularly between the proximal and distal stents. Patent stents. Right popliteal artery: Multifocal atherosclerosis with moderate mid popliteal artery stenosis. Right tibioperoneal trunk: There is mild diffuse narrowing. Right anterior tibial artery: There is mild diffuse narrowing, with visualization of the vessel to the distal calf. Right posterior tibial artery: There is mild diffuse narrowing, with visualization of the vessel to the distal calf. Right peroneal artery: There is mild diffuse narrowing, with visualization of the vessel to the distal calf. LEFT LOWER EXTREMITY Left common femoral artery: There is mild diffuse narrowing. Left profundus femoris: There is mild diffuse narrowing. Left superficial femoral: There is mild diffuse narrowing. Patent stents although some IntraStent intimal thickening/thrombus with moderate narrowing (distal image 148 series 2). Left popliteal artery: There is mild diffuse narrowing. Left tibioperoneal trunk: There is mild diffuse narrowing. Left anterior tibial artery: There is mild diffuse narrowing, with visualization of the vessel to the distal calf. Left posterior tibial artery: There is mild diffuse narrowing, with visualization of the vessel to the distal calf. Left peroneal artery: There is mild diffuse narrowing, with visualization of the vessel to the distal calf. The liver, spleen and pancreas are normal. Gallbladder is only partially distended. Adrenal glands are not focally enlarged. Kidneys are symmetric in size, shape and contrast enhancement. Simple left renal cortical cyst. No required imaging follow-up needed given high likelihood of benign nature. No dilated loops of bowel. Colonic diverticulosis. No retroperitoneal adenopathy. No pelvic mass. Bladder is unremarkable. CT/CTA Abd w/Runoff W/WO Contrast IMPRESSION: 1. Moderate stenosis of left superficial femoral artery stent due to mural thrombus/intimal thickening. 2. 3 vessel runoff to the bilateral feet with mild infrapopliteal arterial disease. 3. Moderate stenosis of the right mid popliteal artery. 4. Bilateral external iliac and left common iliac artery stents are patent. Right superficial femoral artery stents without significant luminal stenosis. 5. 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 Electronically Signed: Dick Stovall MD ([place]) at 12:35 EDT ,
== END | disposition home or self-care (01) ==
LOC: CT 15:44
PROVIDERS: PCP Internal Medicine; Visit Provider Surgery Vascular Surgery
DX: I77.1 Stricture of artery (principal); I70.213 Atherosclerosis of native arteries of extremities with intermittent claudication, bilateral legs; R09.89 Other specified symptoms and signs involving the circulatory and respiratory systems; E78.70 Disorder of bile acid and cholesterol metabolism, unspecified; I10 Essential (primary) hypertension; Z72.0 Tobacco use
CPT/HCPCS: 75635; Q9967

== ENCOUNTER 2022-11-01 08:54 | Day surgery (SDC) | payer MEDICARE, MEDICAID, SELFPAY ==
--- NOTE | 2022-10-30 08:58 | EKG12_ITS ---
Test Reason : PRE OP Blood Pressure : / mmHG Vent. Rate : 052 BPM Atrial Rate : 052 BPM P-R Int : 152 ms QRS Dur : 090 ms QT Int : 450 ms P-R-T Axes : 075 060 081 degrees QTc Int : 418 ms Sinus bradycardia Otherwise normal ECG Confirmed by LORETTA ARCEO, JAZ ([id number]), editor map MOHSEN PROCTOR ([id number]) on 10/31/2022 10:31:25 AM Referred By: Franklin Ramos Confirmed By:JAZ BURGOS MD
[2022-10-30 11:02] LABS: Hematocrit 47.6 % (40-54); Hemoglobin 15.6 g/dL (13.0-16.5); Mean Corp Hgb Conc 32.8 g/dL (32-36); Mean Corpuscular Volume 94.6 fL (80-94); Mean Platelet Vol. 11.7 fl (6.2-12.0); Platelet Count 182 K/mm3 (150-450); RBC Distribution Width CV 15.2 % (11.6-14.6); RBC Distribution Width SD 52.2 fl (35.1-43.9); Red Blood Count 5.03 M/mm3 (4.6-6.2); White Blood Count 8.6 K/mm3 (4.4-11.0)
[2022-10-30 11:27] LABS: Anion Gap 3 (5-15); BUN 8 mg/dL (7-18); BUN/Creat Ratio 9.9 RATIO (10-20); Calcium,Total 8.7 mg/dL (8.5-10.1); Chloride 110 mmol/L (98-107); Creatinine, Serum 0.81 mg/dL (0.70-1.30); EST Glomerular Filtration Rate 99 mL/min (>60); Est Glom Filt Rate - Afr Amer 120 mL/min (>60); Glucose 95 mg/dL (74-106); Sodium Level 141 mmol/L (136-145)
[2022-11-01] VITALS (8 sets, daily range): BP systolic 130–225; BP diastolic 58–114; PULSE 47–57; RESP 16; TEMP 36.2–36.9; O2SAT 94–99; BMI 23.8
[2022-11-01] MEDS: Lactated Ringers 1,000 ML 15 ML IV (09:36)
--- NOTE | 2022-11-01 10:31 | HP.PCM_ITS ---
History and Physical Date of Admission: 11/01/22 Visit Reasons:?INGUINAL HERNIA Chief Complaint: infuinal hernia Allergies clopidogrel [From Plavix] Allergy (Intermediate, Verified 10/08/22 08:06) Hives Medications aspirin 81 mg tablet,delayed release 81 mg PO DAILY heart health 11/08/20 [History Confirmed 10/08/22] metoprolol tartrate 50 mg tablet 25 mg PO BID #90 tabs 11/02/21 [Rx Confirmed 10/08/22] ezetimibe 10 mg tablet 10 mg PO DAILY blood thinner #90 tabs 01/31/22 [Rx Confirmed 10/08/22] prasugrel 10 mg tablet 10 mg PO DAILY blood thinner #90 tabs 03/14/22 [Rx Confirmed 10/08/22] dicyclomine 10 mg capsule 10 mg PO Q6H PRN PRN abdominal discomfort #20 CAPSULES 05/14/22 [Rx Confirmed 10/08/22] ondansetron 4 mg disintegrating tablet 8 mg PO Q8H PRN PRN Nausea #20 tabs 05/14/22 [Rx Confirmed 10/08/22] atorvastatin 80 mg tablet 80 mg PO QHS #90 tabs 06/27/22 [Rx Confirmed 10/08/22] lisinopril 10 mg tablet 10 mg PO BID #180 tabs 07/09/22 [Rx Confirmed 10/08/22] PFSH Medical History? Atherosclerosis of [place] artery of extremity with intermittent claudication Atherosclerotic heart disease of [place] coronary artery without angina pectoris Bilateral carotid artery disease Bilateral carotid bruits CAD (coronary artery disease) Cardiac murmur Cerebrovascular disease COPD (chronic obstructive pulmonary disease) Essential hypertension Gallbladder disease History of myocardial infarction History of stress test Hydrops of gallbladder Mixed hyperlipidemia Old myocardial infarction Peripheral vascular angioplasty status Peripheral vascular disease Tobacco abuse Surgical History? H/O cardiac catheterization Presence of coronary angioplasty implant and graft (~12/2008) Presence of stent in coronary artery (~12/28/08) Status post insertion of iliac artery stent (~12/2008) Family History? Father Colon cancerMother Hypertension Diabetes Social History? Smoking Status:? Current every day smoker tobacco type: cigarettes Tobacco: How many years used:? 45 alcohol intake:? current alcohol intake frequency: a few times a week Alcohol type: beer substance use type:? does not use caffeine:? Yes Type: coffee Number of servings: 3 what type of physical activity do you participate in:? walking frequency:? 3-4 times per week HPI HPI HPI: 76-year-old gentleman who is referred by Dr. Sherrie Song for surgical consultation regarding a possible hernia.? Written copy of my surgical consult recommendations will return to him.? The patient has multiple vascular issues and is followed by Dr. Vince Dunbar.? The patient has CTA of the abdomen with runoff May 18, 2022 and there is no comment about a right inguinal hernia at that time.? He appears to likely have bilateral scrotal lipomas. Notes that there is been a distinct currency exchange specialist the past 2 months.? He has noticed a bulge and it appears to be enlarging.? It is more pertinent of course when he is standing and walking.? It does resolve when he lies supine. He has had multiple vascular structures stented he has coronary stents and mesenteric stents were just placed June 01, 2022 and he has peripheral vascular stents.? His most recent intervention was through percutaneous access in the right groin per Dr. Vince Dunbar. The patient does not notice any incarceration of the right groin.? Since 2016 he has been on anticoagulant ROS General General: No weight change, appetite, fatigue, colon cancer, breast cancer or weakness HEENT HEENT: No difficulty swallowing, eye injury, eye surgery, swollen glands or hoarseness Endo Endocrine: No thyroid disease, diabetes mellitus, thyroid cancer, Hair loss, heat intolerance or cold intolerance Skin Skin: No rash or changing moles Musc Musculoskeletal: No back problems, arthritis, rheumatoid arthritis, gout or joint pain Cardio Cardiovascular: Yes murmur, high blood pressure and heart stent; No pacemaker, heart disease, atrial fibrillation, heart attack, palpitations, shortness of breat with exertion or chest pain Psych Psychiatric: No depression, anxiety or hearing voices Resp Respiratory: No shortness of breath, No sleep apnea, No cough, No COPD, No asthma, No emphysema and No wheezing Gastro Gastrointestinal: No abdominal pain, No nausea or vomiting, No diarrhea, No constipation, No blood in stool, No acid reflux, No hemorrhoids, No ulcers, No gallbladder problem and No black,tarry stools Sunny Hematologic: Yes blood thinners, No blood disorders, No bleeding, No anemia and No blood clots Neuro Neurologic: No system reviewed and no additional complaints, except as documented, No as per HPI, No abnormal gait, No abnormal hearing, No abnormal movements, No abnormal speech, No behavioral changes, No burning sensations, No confusion, No convulsions, No disequilibrium, No dizziness, No localized weakness, No frequent falls, No headache(s), No lack of coordination, No loss of vision, No memory loss, No numbness, No other visual disturbances, No radicular pain, No restless legs, No sensory deficit, No syncope, No tingling, No tremor(s), No weakness and No other Exam Const General: cooperative, healthy appearing, comfortable and no acute distress Nutritional Appearance: average body habitus [facility] Head: normal to inspection Eyes General: appearance normal, both eyes and all related structures Neck Neck: normal visual inspection Chest Other: Increased anterior posterior diameter Resp Other: Slight end expiratory wheeze on the right Cardio Rate: regular rate Rhythm: regular rhythm GI Other: Soft, nontender, normal bowel sounds Other: Obvious right inguinal hernia, left groin solid and intact, testicles descended atrophic, right inguinal hernia reducible with pressure Skin General: no rashes or lesions noted Neuro General: patient alert, patient awake and patient oriented x3 Extrem General: no calf tenderness Psych Appearance: grossly normal Assessment and Plan Assessment and Plan (1) Right inguinal hernia: ?Status:?Acute (2) Cigarette smoker: ?Status:?Chronic ?Plan: 76-year-old gentleman with a recent an enlarging right inguinal hernia.? The patient is a chronic cigarette smoker and has extensive atherosclerotic vascular disease systemically.? He is chronically on aspirin and prasugrel therapy. I do propose for him a open right inguinal herniorrhaphy with mesh and a Abdelrahman approach hopefully to be performed under monitored anesthesia care and local anesthetic.? I discussed the technique, benefit, risk, alternatives. However we will be able to continue his aspirin will but will need to have him off his prasugrel.? We will contact Dr. Vince Dunbar and Dr. Aram [facility] for opinion regarding this patient's anticoagulation and potential duration of interruption of therapy. The patient has had an opportunity to ask and have questions answered.? He is interested in proceeding with an elective procedure if technically feasible. I have vigorously stressed the importance of tobacco cessation to the patient preoperatively as well as for general health sustainability benefits. I appreciate the opportunity of assisting with the surgical care Copy: Dr. Sherrie Song and Dr. Vince Dunbar and Dr. Aram Ramos M.D., F.A.C.S. I have examined the patient and the H&P has been reviewed. There are no clinical changes since date of exam. Franklin Ramos M.D., F.A.C.S.
--- NOTE | 2022-11-01 10:32 | DCINST_ITS ---
Discharge Instructions Procedure General Surgery Diet Discharge Diet: Light diet - advance as tolerated (if you have questions about your diet instructions, please talk to you doctor.) Activity Discharge Activity: May Not Drive (for 3-5 days or while taking narcotic pain medicine.) May shower in (days): 1 Lifting Restrictions: 10 pounds Dressing / Incision Call your doctor if your incision/area has: Continuous Slow Oozing, Sudden Increased Bleeding, Increased Pain/ Swelling, Increased Redness and Foul Smelling Discharge Call your doctor if you observe: Fever of 101 or Higher Suture Line Care: Avoid Pulling/Pushing and Avoid Pinching/Bending Additional Dressing/Incision Instructions:: Change or remove dressing in 4 days. Leave steri-strips in place for 1 week. You may resume your prasugrel on Saturday, November 03, 2022 Follow Up Care Please Follow Up With: Franklin Ramos MD When: Call [phone] to make an appointment to be seen in about 10 days. Test Results: Test results from this visit will be discussed in further detail at your follow- up appointment, if applicable. Discharge Plan Admission Primary Reason for Your Visit: Right inguinal hernia Attending Provider: Franklin Ramos Primary Care Provider: Sherrie Song Discharge Orders/Prescriptions Prescriptions: New hydrocodone-acetaminophen 5-325 mg tablet 1 tab PO Q6H PRN (Reason: pain) 2 Days Qty: 5 0RF Continued aspirin 81 mg tablet,delayed release (DR/EC) 81 mg PO DAILY ezetimibe 10 mg tablet 10 mg PO DAILY metoprolol tartrate 50 mg tablet 25 mg PO BID Qty: 90 3RF prasugrel 10 mg tablet 10 mg PO DAILY Qty: 90 3RF atorvastatin 80 mg tablet 80 mg PO QHS Qty: 90 3RF lisinopril 10 mg tablet 10 mg PO BID Qty: 180 3RF Referrals / Follow Up: Sherrie Song MD [Primary Care Provider] - Disposition Disposition (needs filled in before D/C Order can be placed): Home, Self Care
[2022-11-01] MEDS: Cefazolin 2 GM in 0.9% Normal Saline 100 ML IV (11:12)
[2022-11-01] MEDS: Lidocaine 1% (30 ml sdv) 30 ML Vial (12:10)
[2022-11-01] MEDS: Bupivacaine Mpf 0.5% 30 ML VIAL (12:10)
--- NOTE | 2022-11-01 12:14 | OP_ITS ---
Report of Operation Date of Procedure: 11/01/22 Pre-Operative Diagnosis: Right inguinal hernia Post-Operative Diagnosis: Direct and indirect right inguinal hernias Surgery/Procedure Performed:: Abdelrahman right inguinal herniorrhaphy Description of Surgical Findings:: Timeout informed consent was obtained. 67-year-old gentleman was taken to the operating placed on the table underwent monitored anesthesia care. 1% lidocaine mixed 50-50 with 0.25% Marcaine was used as a local anesthetic. A total of 20 cc was used. Transverse incision was made in the right groin sharp dissection carried down through the subcutaneous tissue electrocautery was used as well external bleak identified incised in line with its fascia. Identified cord structures get circumferential control and placed 1/4 inch [place] drain dissected free overlying the pubic tubercle identified direct weakness with billowing of the direct space I identified an indirect hernia sac this had to be carefully sharply and bluntly tediously dissected free from the cord structures. I did that to likely get complete inversion. Then approximated the transversalis fascia from the pubic tubercle to the internal ring with a running 3-0 Ethibond. I felt that I had good approximation and closure. A paced a Bard keyhole preshaped mesh wrapped around the internal ring secured to itself with the Ethibond trimmed the tails and then placed it overlying the pubic tubercle and underneath the external oblique laterally. I secured it to the pubic tubercle shelving edge of Poupart's and the aponeurosis of the internal and external bleak with multiple interrupted 3-0 Ethibond sutures. Very good placement and approximation was achieved. I approximated the external bleak with a couple simple sutures of 3-0 Vicryl. The subcutaneous tissue was approximated with the same. Skin edges were approximated running subicular 4-0 Monocryl. Steri-Strips Telfa OpSite dressings applied sponge and instrument and needle counts were reported to the surgeon to be correct. Specimens none. Drains none. Blood loss quite minimal. The patient was taken to the recovery room in satisfied condition without apparent complication rFanklin Ramos M.D., F.A.C.S. Surgeon: Franklin Ramos Type of Anesthesia: Local and MAC Anesthesiologist: Ricky Reed
== END 2022-11-01 12:30 | disposition home or self-care (01) ==
LOC: SDC 09:39 → AC 09:39
PROVIDERS: PCP Internal Medicine; Referring Provider Surgery; Visit Provider Surgery
PROC: (CPT 49505; principal; 2022-11-01 10:45)
DX: K40.90 Unilateral inguinal hernia, without obstruction or gangrene, not specified as recurrent (principal); J44.9 Chronic obstructive pulmonary disease, unspecified; I73.9 Peripheral vascular disease, unspecified; I25.10 Atherosclerotic heart disease of native coronary artery without angina pectoris; I10 Essential (primary) hypertension; E78.2 Mixed hyperlipidemia; I25.2 Old myocardial infarction; F17.210 Nicotine dependence, cigarettes, uncomplicated; Z79.82 Long term (current) use of aspirin; Z79.899 Other long term (current) drug therapy; Z95.5 Presence of coronary angioplasty implant and graft
CPT/HCPCS: 49505; 36415; 80048; 85027; 93005; J7120; C1781; J2405

== ENCOUNTER → 2023-01-30 | Outpatient (CLI) | payer MEDICARE, MEDICAID, SELFPAY ==
--- NOTE | 2023-01-30 07:49 | RDU_ITS ---
Reason For Study: Atherosclerosis Right Renal Artery Left Renal Artery Right renal artery ostium Left renal artery ostium 277/33.7 128.6/17.1 RSV/EDV. PSV/EDV. Right renal artery proximal Left renal artery proximal PSV/EDV 170/27.5 PSV/EDV. 288.8/22 . Right renal artery mid 216.6/22.3 Left renal artery mid 183/11.6 PSV/EDV. PSV/EDV . Right renal artery distal Left renal artery distal 134.5/14.9 172.6/32.6 PSV/EDV. PSV/EDV. Celiac artery, 491.3 cm/sec. Hepatic artery, 142 cm/sec. Splenic artery, 197.8 cm/sec. SMA origin, 401.3 cm/sec. SMA prox, 635.3 cm/sec. SMA mid, 262.7 cm/sec. SMA distal, 165.2 cm/sec. NATALIE origin, 542.5 cm/sec. NATALIE prox, 215.6 cm/sec. NATALIE mid, 151.5 cm/sec. NATALIE distal, 102.2 cm/sec. VL/Renal Artery Duplex Ultrasound Interpretation Summary Bilateral renal artery >60% stenosis. Ordering Physician: Vince Dunbar Referring Physician: Sherrie Song M.D. Performed By: Tiffani Hodge RVT
--- NOTE | 2023-01-30 07:50 | AAVD_ITS ---
Reason For Study: Atherosclerosis Aorta Measurements Aorta Doppler Measurements Proximal aorta measures2.23 x 2.18cm. in cross- Peak systolic flow velocities within the proximal sectional axis. aorta measure 74 cm/sec. Proximal aorta measures2.19cm. in longitudinal Peak systolic flow velocities within the mid aorta axis. measure 72.2 cm/sec. Mid aorta measures1.37 x 1.34cm. in cross- Peak systolic flow velocities within the distal sectional axis. aorta measure 59.1 cm/sec. Mid aorta measures1.34cm. in longitudinal axis. Distal aorta measures1.34 x 1.31cm. in cross- sectional axis. Distal aorta measures1.39cm. in longitudinal axis. Left Iliac Artery Left iliac artery measures 0.56 x 0.55 cm. in the cross-sectional axis. Left iliac artery measures 0.57 cm. in the longitudinal axis. Peak systolic velocity in the left iliac artery measures 140.3 cm/sec. Right Iliac Artery Right iliac artery measures 0.77 x 0.77 cm. in the cross-sectional axis. Right iliac artery measures 0.73 cm. in the longitudinal axis. Peak systolic velocity in the right iliac artery measures 162.2 cm/sec. Procedure Aorta IVC Iliac vasculature or bypass grafts 80005. Exam performed in department. VL/Abd Aortic/IVC Duplex scan Interpretation Summary No evidence aortoiliac stenosis or aneurysm seen. Ordering Physician: Vince Dunbar Referring Physician: Sherrie Song M.D. Performed By: Tiffani Hodge RVT
--- NOTE | 2023-01-30 07:51 | ART_ITS ---
Reason For Study: Atherosclerosis Procedure A bilateral lower extremity continuous wave Doppler with analog waveform analysis and ankle brachial indexes. Left Segmental Pressures Left brachial= 175mmHg. Left posterior tibial artery = 156mmHg. Left dorsalis pedis artery = 137mmHg. Left digit = 97 mmHg. The left dorsalis pedis waveforms are biphasic. The left posterior tibial artery waveforms are biphasic. Right Segmental Pressures Right brachial= 189mmHg. Right posterior tibial artery = 111mmHg. Right dorsalis pedis artery = 120mmHg. Right digit = 81 mmHg. The right dorsalis pedis waveforms are biphasic. The right posterior tibial artery waveforms are biphasic. Indices The right ankle brachial index by the dorsalis pedis is 0.63. The right ankle brachial index by the posterior tibial artery is 0.59. The right digital-brachial index is 0.43. The left ankle brachial index by the dorsalis pedis is 0.72. The left ankle brachial index by the posterior tibial artery is 0.83. The left digital-brachial index is 0.51. VL/Ankle Brachial Index Interpretation Summary Right moderate occlussive disease with biphasic flow and RONNIE o.63. Left mild wi th triphasic flow and RONNIE 0.89. DBI 0.4/0.51. Ordering Physician: Vince Dunbar Referring Physician: Sherrie Song M.D. Performed By: Tiffani Hodge RVT
--- NOTE | 2023-01-30 07:51 | CDU_ITS ---
Reason For Study: Carotid stenosis Rt. Velocities/BP Lt. Velocities/BP Prox CCA 90.5/11.3 cm/sec. Prox CCA 63/12.6 cm/sec. Mid CCA 48.7/11.3 cm/sec. Mid CCA 75.3/12.6 cm/sec. Dist CCA 50.9/13.5 cm/sec. Dist CCA 76.5/11.4 cm/sec. Prox ICA 104.7/20.6 cm/sec. Prox ICA 86.3/9.4 cm/sec. Mid ICA 167.5/29.2 cm/sec. Mid ICA 93.7/18.8 cm/sec. Dist ICA 178.5/22.6 cm/sec. Dist ICA 110.1/22.5 cm/sec. Rt. ICA/CCA = 3.51. Lt. ICA/CCA = 1.46. Prox ECA 651.6/70.2 cm/sec. Prox ECA 427.9/23.8 cm/sec. Rt. Vert. 90/11.5 cm/sec. Lt. Vert. 26.5/52 cm/sec. Right Extracranial There is heterogeneous, irregular atherosclerotic plaque noted in the right common carotid artery. There is heterogeneous, irregular atherosclerotic plaque noted in the right internal carotid artery. The atherosclerotic plaque causes acoustic shadowing. Stent nored in the right CCA distal- ICA mid. There is heterogeneous, irregular atherosclerotic plaque noted in the right external carotid artery. Antegrade flow is noted in the right vertebral artery. Left Extracranial There is heterogeneous, irregular atherosclerotic plaque noted in the left common carotid artery. There is homogeneous, smooth atherosclerotic plaque noted in the left internal carotid artery. Stent nored in the left CCA distal- ICA mid. There is heterogeneous, irregular atherosclerotic plaque noted in the left external carotid artery. Abnormal waveform morphology noted in the left vertebral artery. VL/Carotid Duplex Ultrasound Interpretation Summary Moderate (50-69%) stenosis right extracranial internal carotid. Mild (<50%) yara nosis left extracranial internal carotid. Flow within the right verterbral artery is anteg rade. Left vertebral abnormal flow. Ordering Physician: Vince Dunbar Referring Physician: Sherrie Song M.D. Performed By: Tiffani Hodge RVT
== END | disposition home or self-care (01) ==
PROVIDERS: PCP Internal Medicine; Referring Provider Surgery Vascular Surgery; Visit Provider Surgery Vascular Surgery
DX: R09.89 Other specified symptoms and signs involving the circulatory and respiratory systems (principal); I70.213 Atherosclerosis of native arteries of extremities with intermittent claudication, bilateral legs; I77.1 Stricture of artery; I65.23 Occlusion and stenosis of bilateral carotid arteries; Z72.0 Tobacco use; Z48.812 Encounter for surgical aftercare following surgery on the circulatory system
CPT/HCPCS: 93880; 93922; 93975; 93978

== ENCOUNTER → 2023-04-03 | Outpatient (CLI) | payer MEDICARE, MEDICAID, SELFPAY ==
[2023-04-03 09:31] LABS: Absolute Lymphocyte Count 2.89 X10^3/uL (0.83-4.51); Absolute Neutrophil Count 4.9 X10^3/uL (2.0-7.7); Basophil# 0.04 X10^3/uL; Basophil% 0.5 % (0-1); Eosinophil# 0.12 X10^3/uL; Eosinophils% 1.4 % (0-5); Hematocrit 46.4 % (40-54); Hemoglobin 14.9 g/dL (13.0-16.5); Lymphocyte # 2.89 X10^3/ul (0.83-4.51); Mean Corp Hgb Conc 32.1 g/dL (32-36); Mean Corpuscular Hgb 31.1 pg (27.0-32.0); Mean Corpuscular Volume 96.9 fL (80-94); Mean Platelet Vol. 11.5 fl (6.2-12.0); Monocyte# 0.76 X10^3/uL; Monocyte% 8.7 % (0-10); NRBC Flagged by Analyzer 0 % (0-5); Neutrophil # 4.89 X10^3/uL (2.7-7.7); Neutrophil % 55.7 % (47-70); Platelet Count 171 K/mm3 (150-450); RBC Distribution Width SD 54.3 fl (35.1-43.9); Red Blood Count 4.79 M/mm3 (4.6-6.2); White Blood Count 8.8 K/mm3 (4.4-11.0)
[2023-04-03 10:12] LABS: ALB/GLOB Ratio 0.9 RATIO (0.9-2.4); AST(SGOT) 18 U/L (15-37); Alanine Aminotransfer ALT/SGPT 22 U/L (16-61); Albumin, Serum 3.3 g/dL (3.2-5.0); Alkaline Phosphatase 94 U/L (45-117); Anion Gap 6 (5-15); BUN 10 mg/dL (7-18); BUN/Creat Ratio 12.2 RATIO (10-20); Chloride 108 mmol/L (98-107); Cholesterol 126 mg/dL (200); Creatinine, Serum 0.82 mg/dL (0.70-1.30); EST Glomerular Filtration Rate 97 mL/min (>60); Est Glom Filt Rate - Afr Amer 117 mL/min (>60); Globulin 3.8 g/dL (2.2-4.2); Glucose 126 mg/dL (74-106); High Density Lipoprotein 33 mg/dL; PSA,Total - Annual Screen 1.59 ng/mL (0.00-4.00); Protein, Total 7.1 g/dL (6.4-8.2); Sodium Level 139 mmol/L (136-145); Triglycerides 161 mg/dL; Very Low Density Lipoprotein 32 mg/dL (5-40)
[2023-04-03 10:27] LABS: Vitamin D,25 Hydroxy 40.5 ng/mL
== END | disposition home or self-care (01) ==
LOC: LAB 08:29
PROVIDERS: PCP Internal Medicine; Referring Provider Internal Medicine; Visit Provider Internal Medicine
DX: I77.1 Stricture of artery (principal); I70.1 Atherosclerosis of renal artery; I70.219 Atherosclerosis of native arteries of extremities with intermittent claudication, unspecified extremity; I77.9 Disorder of arteries and arterioles, unspecified; K55.1 Chronic vascular disorders of intestine; I25.10 Atherosclerotic heart disease of native coronary artery without angina pectoris; R09.89 Other specified symptoms and signs involving the circulatory and respiratory systems; R79.89 Other specified abnormal findings of blood chemistry; Z95.5 Presence of coronary angioplasty implant and graft; Z95.828 Presence of other vascular implants and grafts; F17.210 Nicotine dependence, cigarettes, uncomplicated; Z12.5 Encounter for screening for malignant neoplasm of prostate
CPT/HCPCS: 36415; 80053; 80061; 82306; 84153; 84443; 85025; G0103

== ENCOUNTER → 2023-08-30 | Outpatient (CLI) | payer MEDICARE, MEDICAID, SELFPAY ==
--- NOTE | 2023-09-03 10:24 | STRESSREP ---
Stress Test Report Date: 08/30/2023 Procedure: Pharmacologic stress nuclear imaging study Indications: Coronary artery disease Consent: Per the patient Procedure: Initially the patient was tried for a Martínez protocol on the treadmill. However as he was unable to walk on the treadmill, it was changed to pharmacological stress. The patient underwent pharmacologic (Regadenoson 0.4mg ) evaluation with a peak heart rate of 86 beats per minute (59%predicted maximal heart rate) and a peak blood pressure of 142/72 mmHg. The baseline ECG demonstrated sinus rhythm. The peak pharmacologic ECG demonstrated no ischemic changes. There were no cardiac dysrhythmias pretest, during pharmacologic infusion, or recovery. There was no complaint of chest discomfort during pharmacologic infusion or recovery. The patient was injected with 11.9 millicuries of technetium 99m Cardiolite and subsequently rest SPECT Cardiolite nuclear imaging was obtained in the horizontal long, vertical long, and short axis views. The patient underwent pharmacologic (Regadenoson) evaluation. The patient was injected with 36.0 millicuries of technetium 99m Cardiolite and subsequently stress SPECT Cardiolite nuclear imaging was obtained in the horizontal long, vertical long, and short axis views. A gated Cardiolite study at peak stress was obtained. The examination was stopped secondary to completion of protocol. Rest and stress SPECT Cardiolite nuclear imaging status post realignment, normalization, and attenuation correction demonstrate no fixed or reversible perfusion defects. There is end systolic thickening and brightening. The gated Cardiolite study demonstrates myocardial thickening and inward wall motion. The reported LVEF is 60%. Impression: 1. Pharmacologic (Regadenoson) evaluation 2. Peak pharmacologic ECG with no ischemic changes. 3. There were no cardiac dysrhythmias pretest, during pharmacologic infusion, or recovery. 5. Rest and stress SPECT Cardiolite nuclear imaging demonstrate relative uniform tracer uptake and myocardial perfusion appearing within normal limits. 6. The gated Cardiolite study reports an LVEF of 60%. This note was generated with [employer] software. It may contain incorrect words, spelling, and punctuation that were not noted in checking the note before signing.
== END | disposition home or self-care (01) ==
LOC: CVS 07:00
PROVIDERS: PCP Internal Medicine; Referring Provider Nurse Practitioner Gerontology; Visit Provider Nurse Practitioner Gerontology
DX: I25.10 Atherosclerotic heart disease of native coronary artery without angina pectoris (principal)
CPT/HCPCS: 78452; 93017; A9500; A4216; J2785

== ENCOUNTER → 2024-02-03 | Outpatient (CLI) | payer MEDICARE, MEDICAID, SELFPAY ==
--- NOTE | 2024-02-03 13:58 | ECHOD_ITS ---
Reason For Study: Murmur Procedure This was a 2D Doppler, Color Flow transthoracic echocardiogram. Exam performed in department. Left Ventricle Normal left ventricle. Mild concentric left ventricular hypertrophy. Left ventricular systolic function is normal. The estimated ejection fraction is 55 %. Stage 1 diastolic dysfunction. No regional wall motion abnormalities noted. Right Ventricle Normal RV size. Normal systolic function. Atria Normal left atrium. Normal right atrium. Mitral Valve Normal mitral valve. Tricuspid Valve Normal tricuspid valve. Aortic Valve Trisinus/trileaflet aortic valve. Pulmonic Valve Normal pulmonic valve. Great Vessels Normal aortic root. The pulmonary artery is normal size. Normal inferior vena cava. Pericardium/Pleural No pericardial effusion. MMode/2D Measurements & Calculations LVIDd: 5.2 cm IVSd: 1.3 cm Ao root diam: 3.2 cm LVIDs: 3.1 cm LVPWd: 1.2 cm LA dimension: 4.0 cm RVDd: 3.3 cm FS: 40.6 % LAV(MOD-bp): 38.8 ml LVAd ap4: 23.4 cm2 SV(MOD-sp4): 38.3 ml LAV(MOD-bp) Indexed: 21.2 ml/m2 LVLd ap4: 7.3 cm LAV(MOD-sp2): 40.6 ml EDV(MOD-sp4): 62.3 ml LAV(MOD-sp4): 34.9 ml EDV(sp4-el): 63.8 ml LVAs ap4: 12.8 cm2 LVLs ap4: 6.1 cm ESV(MOD-sp4): 24.0 ml ESV(sp4-el): 23.0 ml EF(MOD-sp4): 61.5 % EF(sp4-el): 63.9 % SV(sp4-el): 40.8 ml LA A4 area: 14.0 cm2 RA A4 area: 15.6 cm2 TAPSE: 1.9 cm Time Measurements MV dec time: 0.19 sec Doppler Measurements & Calculations MV E max james: 64.3 cm/sec Lat Peak E' James: 8.1 cm/sec Med Peak E' James: 5.2 cm/sec MV A max james: 102.6 cm/sec E/E' lat: 7.9 E/E' med: 12.4 MV E/A: 0.63 MV V2 max: 118.3 cm/sec MV P1/2t max james: 79.6 cm/sec Ao V2 max: 104.5 cm/sec MV max P.6 mmHg MV P1/2t: 71.6 msec Ao max P.4 mmHg MV V2 mean: 49.3 cm/sec MV dec slope: 325.4 cm/sec2 Ao V2 mean: 70.5 cm/sec MV mean P.2 mmHg Ao mean P.2 mmHg MV V2 VTI: 35.3 cm MVA(P1/2t): 3.1 cm2 Ao V2 VTI: 27.3 cm AV (velocity ratio): 0.86 LV V1 max: 89.8 cm/sec PA V2 max: 79.4 cm/sec LV V1 max P.2 mmHg LV V1 mean P.6 mmHg LV V1 mean: 59.9 cm/sec LV V1 VTI: 23.3 cm ECHO/Echo Complete Interpretation Summary Normal left ventricle. Mild concentric left ventricular hypertrophy. Left ventricular systolic function is normal. The estimated ejection fraction is 55 %. Stage 1 diastolic dysfunction. Ordering Physician: Georgi Rockwell Referring Physician: Sherrie Song M.D. Performed By: Bill Banks RCS
== END | disposition home or self-care (01) ==
PROVIDERS: PCP Internal Medicine; Referring Provider Internal Medicine Cardiovascular Disease; Visit Provider Internal Medicine Cardiovascular Disease
DX: R01.1 Cardiac murmur, unspecified (principal)
CPT/HCPCS: 93306

== ENCOUNTER → 2024-04-29 | Outpatient (CLI) | payer MEDICARE, MEDICAID, SELFPAY ==
--- NOTE | 2024-04-29 07:56 | RDU_ITS ---
Reason For Study: Aftercare Right Renal Artery Left Renal Artery Right renal artery ostium Left renal artery ostium 134.5/11.6 183.0/24.6 PSV/EDV. PSV/EDV. Right renal artery proximal Left renal artery proximal PSV/EDV 202.4/18.1 PSV/EDV. 267.1/14.9 Right renal artery mid 137.7/17.1 Left renal artery mid 147.4/18.1 PSV/EDV. PSV/EDV . Right renal artery distal Left renal artery distal 163.6/24.6 142.9/21.6 PSV/EDV. PSV/EDV. MESENTERIC ARTERIES Celiac artery - 416.9/96.9 cm/sec. Celiac artery w/ INSP - 402.6/71.4 cm/sec Hepatic artery - 307.2/63.6 cm/sec. Splenic artery - 87.5/16.9 cm/sec. SMA origin - 340.8/31.0 cm/sec. SMA origin w/ INSP - 332.9/30.3 SMA origin w/ EXP - 317.2/39.7 SMA prox, 652.5/66.3 cm/sec. SMA mid, 206.9/27.0 cm/sec. SMA distal - 84.5/10.7 cm/sec. NATALIE origin - 360.1/36.7 cm/sec. NATALIE prox - 247.6/20.4 cm/sec. Procedures Mesenteric Artery Duplex with B-Mode, Pulsed Wave and Color Doppler. VL/Renal Artery Duplex Ultrasound Interpretation Summary Right renal artery patent with > 60% stenosis. Left renal artery patent with > 60% stenosis. Ordering Physician: Vince Dunbar Referring Physician: Sherrie Song Performed By: Ricky Gavin RVT
--- NOTE | 2024-04-29 07:56 | ART_ITS ---
Reason For Study: Aftercare Procedure A bilateral lower extremity continuous wave Doppler with analog waveform analysis and ankle brachial indexes. Left Segmental Pressures Left brachial= 172mmHg. Left posterior tibial artery = 160mmHg. Left dorsalis pedis artery = 130mmHg. Left digit = 90 mmHg. The left posterior tibial artery waveforms are biphasic. The left dorsalis pedis waveforms are biphasic. Right Segmental Pressures Right brachial= 173mmHg. Right posterior tibial artery = 126mmHg. Right dorsalis pedis artery = 100mmHg. Right digit = 79 mmHg. The right posterior tibial artery waveforms are biphasic. The right dorsalis pedis waveforms are biphasic. Indices The right ankle brachial index by the posterior tibial artery is 0.73. The right ankle brachial index by the dorsalis pedis is 0.58. The right digital-brachial index is 0.46. The left ankle brachial index by the posterior tibial artery is 0.92. The left ankle brachial index by the dorsalis pedis is 0.75. The left digital-brachial index is 0.52. VL/Ankle Brachial Index Interpretation Summary Resting ankle-brachial indices appear mildly abnormal bilaterally. Ordering Physician: Vince Dunbar Referring Physician: Sherrie oSng Performed By: Ricky Gavin RVT
--- NOTE | 2024-04-29 07:56 | AAVD_ITS ---
Reason For Study: Aftercare Aorta Measurements Aorta Doppler Measurements Proximal aorta measures2.01 x 2.01cm. in cross- Peak systolic flow velocities within the proximal sectional axis. aorta measure 45.1 cm/sec. Proximal aorta measures2.06cm. in longitudinal Peak systolic flow velocities within the mid aorta axis. measure 63.2 cm/sec. Mid aorta measures1.51 x 1.55cm. in cross- Peak systolic flow velocities within the distal sectional axis. aorta measure 58.1 cm/sec. Mid aorta measures1.52cm. in longitudinal axis. Distal aorta measures1.58 x 1.61cm. in cross- sectional axis. Distal aorta measures1.59cm. in longitudinal axis. Left Iliac Artery Left iliac artery measures 0.58 x 0.61 cm. in the cross-sectional axis. Left iliac artery measures 0.64 cm. in the longitudinal axis. Peak systolic velocity in the left iliac artery measures 131.9 cm/sec. Right Iliac Artery Right iliac artery measures 0.69 x 0.67 cm. in the cross-sectional axis. Right iliac artery measures 0.68 cm. in the longitudinal axis. Peak systolic velocity in the right iliac artery measures 137.1 cm/sec. Procedure Aorta IVC Iliac vasculature or bypass grafts 44097. The exam was diagnostic. Exam performed in department. VL/Abd Aortic/IVC Duplex scan Interpretation Summary No arto iliac aneurysm or stenosis. Ordering Physician: Vince Dunbar Referring Physician: Sherrie Song M.D. Performed By: Ricky Gavin RVT
--- NOTE | 2024-04-29 07:56 | CDU_ITS ---
Reason For Study: Aftercare Rt. Velocities/BP Lt. Velocities/BP Prox CCA 104.7/16.3 cm/sec. Prox CCA 97.7/19.2 cm/sec. Mid CCA 79.5/11.3 cm/sec. Mid CCA 87.9/17.9 cm/sec. Dist CCA 79.5/16.8 cm/sec. Dist CCA 86.7/16.7 cm/sec. Prox ICA 91.3/23.3 cm/sec. Prox ICA 113.3/27.7 cm/sec. Mid ICA 166.0/21.1 cm/sec. Mid ICA 111.1/27.7 cm/sec. Dist ICA 150.6/25.5 cm/sec. Dist ICA 111.1/23.3 cm/sec. Rt. ICA/CCA = 2.1. Lt. ICA/CCA = 1.3. Prox ECA 401.5/10.3 cm/sec. Prox ECA 396.3/19.9 cm/sec. Rt. Vert. 97.9/7.9 cm/sec. Lt. Vert. 35.3/9.0 cm/sec. Right Extracranial There is heterogeneous, irregular atherosclerotic plaque noted in the right common carotid artery. There is heterogeneous, irregular atherosclerotic plaque noted in the right internal carotid artery. The atherosclerotic plaque causes acoustic shadowing. Stent noted Dist CCA / Mid ICA. There is heterogeneous, irregular atherosclerotic plaque noted in the right external carotid artery. Antegrade flow is noted in the right vertebral artery. Left Extracranial There is heterogeneous, irregular atherosclerotic plaque noted in the left common carotid artery. There is heterogeneous, irregular atherosclerotic plaque noted in the left internal carotid artery. The atherosclerotic plaque causes acoustic shadowing. Stent noted Dist CCA / Mid ICA. There is heterogeneous, irregular atherosclerotic plaque noted in the left external carotid artery. Antegrade flow is noted in the left vertebral artery. Procedure Carotid Duplex [id number]. This is a Carotid Duplex examination using B-mode, color flow and specral Doppler. The exam was diagnostic. Exam performed in department. VL/Carotid Duplex Ultrasound Interpretation Summary Moderate (50-69%) stenosis right extracranial internal carotid. Mild (<50%) yara nosis left extracranial internal carotid. Flow within the vertebral arteries is antegrade bilaterally. Ordering Physician: Vince Dunbar Referring Physician: Sherrie Song Performed By: Ricky Gavin RVT and Student
== END | disposition home or self-care (01) ==
PROVIDERS: PCP Internal Medicine; Referring Provider Surgery Vascular Surgery; Visit Provider Surgery Vascular Surgery
DX: Z48.812 Encounter for surgical aftercare following surgery on the circulatory system (principal); I65.23 Occlusion and stenosis of bilateral carotid arteries; I10 Essential (primary) hypertension; Z72.0 Tobacco use; I77.1 Stricture of artery; I70.213 Atherosclerosis of native arteries of extremities with intermittent claudication, bilateral legs
CPT/HCPCS: 93880; 93922; 93975; 93978

== ENCOUNTER → 2024-06-10 | Outpatient (CLI) | payer MEDICARE, MEDICAID, SELFPAY ==
[2024-06-10 12:20] LABS: Absolute Lymphocyte Count 3.17 X10^3/uL (0.83-4.51); Absolute Neutrophil Count 5.2 X10^3/uL (2.0-7.7); Basophil# 0.05 X10^3/uL; Basophil% 0.5 % (0-1); Eosinophil# 0.18 X10^3/uL; Eosinophils% 1.8 % (0-5); Hematocrit 51.7 % (40-54); Hemoglobin 16.2 g/dL (13.0-16.5); Lymphocyte # 3.17 X10^3/ul (0.83-4.51); Lymphocyte % 32.5 % (19-41); Mean Corp Hgb Conc 31.3 g/dL (32-36); Mean Corpuscular Hgb 30.3 pg (27.0-32.0); Mean Corpuscular Volume 96.6 fL (80-94); Mean Platelet Vol. 11.5 fl (6.2-12.0); Monocyte# 1.11 X10^3/uL; Monocyte% 11.4 % (0-10); NRBC Flagged by Analyzer 0 % (0-5); Neutrophil # 5.19 X10^3/uL (2.7-7.7); Neutrophil % 53.3 % (47-70); Platelet Count 178 K/mm3 (150-450); RBC Distribution Width CV 14.1 % (11.6-14.6); RBC Distribution Width SD 50.3 fl (35.1-43.9); Red Blood Count 5.35 M/mm3 (4.6-6.2); White Blood Count 9.8 K/mm3 (4.4-11.0)
[2024-06-10 12:38] LABS: AST(SGOT) 21 U/L (15-37); Alanine Aminotransfer ALT/SGPT 32 U/L (16-61); Albumin, Serum 3.7 g/dL (3.2-5.0); Alkaline Phosphatase 87 U/L (45-117); Anion Gap 2 (5-15); BUN 14 mg/dL (7-18); BUN/Creat Ratio 16.5 RATIO (10-20); Calcium,Total 9.6 mg/dL (8.5-10.1); Chloride 106 mmol/L (98-107); Cholesterol 144 mg/dL (200); Creatinine, Serum 0.85 mg/dL (0.70-1.30); EST Glomerular Filtration Rate 93 mL/min (>60); Est Glom Filt Rate - Afr Amer 113 mL/min (>60); Globulin 3.8 g/dL (2.2-4.2); Glucose 77 mg/dL (74-106); High Density Lipoprotein 34 mg/dL; PSA,Total - Annual Screen 1.91 ng/mL (0.00-4.00); Potassium 4.3 mmol/L (3.5-5.1); Protein, Total 7.5 g/dL (6.4-8.2); Sodium Level 138 mmol/L (136-145); Triglycerides 208 mg/dL; Very Low Density Lipoprotein 42 mg/dL (5-40)
[2024-06-10 12:47] LABS: Vitamin B12 283 pg/mL (211-911)
== END | disposition home or self-care (01) ==
PROVIDERS: PCP Internal Medicine; Referring Provider Internal Medicine; Visit Provider Internal Medicine
DX: I25.10 Atherosclerotic heart disease of native coronary artery without angina pectoris (principal); J44.9 Chronic obstructive pulmonary disease, unspecified; I77.1 Stricture of artery; I70.1 Atherosclerosis of renal artery; K55.1 Chronic vascular disorders of intestine; E53.8 Deficiency of other specified B group vitamins; D72.829 Elevated white blood cell count, unspecified; E55.9 Vitamin D deficiency, unspecified; Z12.5 Encounter for screening for malignant neoplasm of prostate; Z13.220 Encounter for screening for lipoid disorders; Z95.828 Presence of other vascular implants and grafts; Z95.5 Presence of coronary angioplasty implant and graft
CPT/HCPCS: 36415; 80053; 80061; 82306; 82607; 84153; 85025; G0103